=== PATIENT | female | born 1935 | race Caucasian/White ===

== ENCOUNTER → 2017-01-25 | Outpatient (CLI) | payer MEDICARE ==
--- NOTE | 2017-01-25 16:49 | RAD ---
Indication: Diabetes with left leg wound. Grayscale, color-flow and duplex Doppler evaluation of the left lower extremity arterial system was performed. Mild calcified atherosclerotic plaque is identified throughout the left lower extremity arterial system. There are primarily biphasic waveforms throughout. Velocities are unremarkable. No significant velocity elevation or stenosis is seen. No occlusion is identified. Impression: Atherosclerotic changes. No high-grade stenosis or occlusion is identified.
== END | disposition home or self-care (01) ==
LOC: US 15:43
PROVIDERS: ATTEND Family Medicine
DX: I73.9 Peripheral vascular disease, unspecified (principal); L03.129 Acute lymphangitis of unspecified part of limb
CPT/HCPCS: 93923

== ENCOUNTER 2021-03-31 22:48 | Emergency (ER) | payer MEDICARE ==
[~2021-03-31] VITALS: Ht 161.3 cm; Wt 65.5 kg
--- NOTE | 2021-03-31 23:02 | PHYS DOC ---
Past History Past Medical History: Arthritis General Adult HPI: HPI: ".. This shoulder.. has just started hurting... ..it really been hurting tonight... it hurts to move it.. and can't find a comfortable position... " Patient is a 85 year old female who presents with right shoulder pain. Patient is having pain with range of motion. There is some trapezius spasms associated with pain. Patient rates pain as 8 out of 10 and constant. Patient denies any trauma. No recent travel. No specific ill contacts. No history immunosuppression. Patient is right hand dominant. Pulses in right wrist are equal to left wrist. Any movement of the shoulder joint causes increased pain. Patient denies any fever or chills. No history of immune suppression.does have a history of asthma and bronchitis. Patient never smoked. Patient has completed Covid Moderna Vaccination x 2 times in November. Patient normally follows with Dr. Brennan. Review of Systems: Review of Systems: Constitutional: Denies fever or chills Eyes: Denies change in visual acuity HENT: Denies nasal congestion or sore throat Respiratory: History of wheezing Cardiovascular: Denies chest pain or edema GI: Denies abdominal pain, nausea, vomiting, bloody stools or diarrhea : Denies dysuria Musculoskeletal: Complains of right shoulder pain and neck pain Integument: Denies rash Neurologic: Denies headache, focal weakness or sensory changes Endocrine: Denies polyuria or polydipsia Lymphatic: Denies swollen glands Psychiatric: Denies depression or anxiety Family History: Family History: Noncontributory to presentation Current Medications: Current Meds: See nursing for home meds Allergies: Allergies: Allergic to penicillin ibuprofen Physical Exam: PE: Constitutional: Moderate acute distress, non-toxic appearance. [] HENT: Normocephalic, atraumatic, bilateral external ears normal, oropharynx moist, no oral exudates, nose normal. [] Eyes: PERRLA, EOMI, conjunctiva normal, no discharge. [] Neck: Normal range of motion, right trapezius tenderness, supple, no stridor. [] Kyphosis and scoliosis Cardiovascular: Tachycardia heart rate regular rhythm, no murmur [] PMI to the l eft Lungs & Thorax: Bilateral breath sounds equal apex with basilar crackles on auscultation [] Abdomen: Bowel sounds normal, soft, no tenderness, no masses, no pulsatile masses. Old scar Skin: Warm, dry, no erythema, no rash. Poor turgor Back: No tenderness, no CVA tenderness. [] Extremities: No tenderness, no cyanosis, no clubbing, ROM intact, no edema. Except findings in right shoulder as per HPI Neurologic: Alert and oriented X 3, moves extremities on request, does have distal sensory,, no focal deficits noted. [] Psychologic: Affect anxious, judgement normal, mood normal. [] EKG: EKG: My interpretation of EKG shows a sinus rhythm at 97 bpm. Does have occasional PACs and PVCs. Left axis deviation and contour abnormality in anterior septal region. No findings of acute STEMI with contralateral changes. But this is a abnormal EKG. [] Radiology/Procedures: Radiology/Procedures: [][address] [address] IMAGING REPORT Signed PATIENT: EDISON ZHU AACCOUNT: [id number] : 1935 LOCATION: ER AGE: 85 SEX: F EXAM STATUS: PRE ER ORD. PHYSICIAN: HERNAN MORRISON MD REASON: pain PROCEDURE: CT HEAD AND CERVICAL SPINE WO INDICATION: Head and neck pain COMPARISON: None. TECHNIQUE: Axial CT images obtained through the head and cervical spine . One or more of the following individualized dose reduction techniques were utilized for this examination: 1. Automated exposure control; 2. Adjustment of the mA and/or kV according to patient size; 3. Use of iterative reconstruction technique. FINDINGS: Head: Calcific atherosclerosis. Distal left internal carotid artery is mildly prominent in size measuring up to about 6-7 mm. No midline shift. Multifocal regions of low density throughout the white matter. Prominence of ventricles and sulci which can be seen with age-related volume loss. No acute intracranial hemorrhage. There is some fluid in the maxillary sinuses. Cervical spine: Degenerative changes throughout the cervical spine with disc protrusions and osteophyte formation as well as uncovertebral and facet hypertrophy with multilevel central canal and neural foraminal stenosis. Osseous demineralization. Pannus formation at the dens. Calcific atherosclerosis. Thyroid nodules. IMPRESSION: * No acute intracranial hemorrhage. * Low-density throughout the white matter. Nonspecific but can be from small vessel ischemic disease. * Degenerative changes of the cervical spine with multilevel central canal and neural foraminal stenosis. No definite fracture seen. Electronically signed by: Radha Rahman MD (04/01/2021 12:42 AM) DESKTOP- [id number] DICTATED AND SIGNED BY: RADHA RAHMAN MD DATE: 04/01/21 0034 CC: LITA BRENNAN MD; HERNAN MORRISON MD ~MTH0 0 Heart Score: C/O Chest Pain: N/A Risk Factors: Risk Factors: DM, Current or recent (<one month) smoker, HTN, HLP, family history of CAD, obesity. Risk Scores: Score 0 - 3: 2.5% MACE over next 6 weeks - Discharge Home Score 4 - 6: 20.3% MACE over next 6 weeks - Admit for Clinical Observation Score 7 - 10: 72.7% MACE over next 6 weeks - Early Invasive Strategies Course & Med Decision Making: Course & Med Decision Making Pertinent Labs and Imaging studies reviewed. (See chart for details) Patient follow-up with Dr. Brennan. Patient to take Zithromax 250 a day. Trial course of lidocaine patches over right shoulder. Take Tylenol for pain. For marked pain may take Percocet up to 4 times a day. Return if any concerns. Impression: 1. Rt Shoulder Pain 2. DJD and Cervical Neuropathy 3. Leukocytosis 15.9 4. Thrombcytopenia 123 5. Elevated Bun/Creat 33/1.3 6. DM - Glucosed 347 7. Rt. Basilar Opacity- and Linear opacities- Pneumonia? [] Dragon Disclaimer: Joel Disclaimer: This electronic medical record was generated, in whole or in part, using a voice recognition dictation system. Departure Departure: Referrals: LITA BRENNAN MD (PCP) Scripts Azithromycin (ZITHROMAX) 250 Mg Tablet 250 MG PO DAILY for ANTI-BIOTIC for 5 Days, #5 TAB 0 Refills Prov: HERNAN MORRISON MD 04/01/21 Oxycodone Hcl/Acetaminophen (PERCOCET 5-325 MG TABLET ) 1 Each Tablet 1 TAB PO PRN QID PRN for PAIN MDD 4 Tablet(s) for 30 Days, #30 TAB 0 Refills Prov: HERNAN MORRISON MD 04/01/21 Lidocaine (Lidocaine PATCH ) 1 Each Adh..patch 1 EACH TP DAILY for FOR LOCAL PAIN, #10 PATCH REMOVE AFTER 12 HOURS Prov: HERNAN MORRISON MD 04/01/21 HERNAN MORRISON MD Mar 31, 2021 23:02
--- NOTE | 2021-03-31 23:40 | EKG ---
[address] [address] Test Date: 2021-03-31 Test Time: 23:03:23 Pat Name: EDISON ZHU Department: Room: Gender: F Anthropometrist: BHAVYA : 1935 Requested By: HERNAN MORRISON Order Number: [id number] Reading MD: Measurements Intervals [place] [facility] Rate: 97 P: -63 VA: 132 QRS: -46 QRSD: 78 T: 13 QT: 348 QTc: 446 Interpretive Statements SINUS RHYTHM ATRIAL PREMATURE COMPLEX(ES) ABNORMAL LEFT AXIS DEVIATION QRS(T) CONTOUR ABNORMALITY CONSISTENT WITH ANTEROSEPTAL INFARCT PROBABLY OLD CONSISTENT WITH INFERIOR INFARCT PROBABLY OLD ABNORMAL ECG RI6.02 No previous ECG available for comparison
[2021-04-01] MEDS ORDERED: IV RINGERS SOLUTION,LACTATED 1,000 ML IV SCH
[2021-04-01] MEDS ORDERED: oxyCODONE/APAP 5/325 1 TAB TABLET PO ONE
[2021-04-01 00:27] LABS: CALCIUM 8.5 mg/dL (8.5-10.1); CREATININE 1.7 mg/dL (0.6-1.0); GFR 28.6; POTASSIUM 3.9 mmol/L (3.5-5.1)
[2021-04-01 00:35] LABS: BASO # 0.1 x10^3/uL (0.0-0.2); BASO % 1 % (0-3); EOS % 0 % (0-3); HEMATOCRIT 39.6 % (36.0-47.0); HEMOGLOBIN 13.1 g/dL (12.0-15.5); LYMPH # 1.3 x10^3/uL (1.0-4.8); LYMPH % 8 % (24-48); MEAN CORPUSCULAR HEMOGLOBIN 29 pg (25-35); MEAN CORPUSCULAR HGB CONC 33 g/dL (31-37); MEAN CORPUSCULAR VOLUME 87 fL (79-100); MONO # 1.9 x10^3/uL (0.0-1.1); MONO % 12 % (0-9); NEUT # 12.7 x10^3uL (1.8-7.7); NEUT % 79 % (31-73); PLATELET COUNT 123 x10^3/uL (140-400); RED BLOOD COUNT 4.54 x10^6/uL (3.50-5.40); RED CELL DISTRIBUTION WIDTH 14.1 % (11.5-14.5); WHITE BLOOD COUNT 15.9 x10^3/uL (4.0-11.0)
[2021-04-01 00:38] LABS: % LYMPHS 14 % (24-48); % MONOS 8 % (0-10); % SEGS 78 % (35-66)
[2021-04-01 00:39] LABS: PLT ESTIMATE DECREASED (ADEQUATE)
[2021-04-01 00:40] LABS: DIRECT BILIRUBIN 0.2 mg/dL (0.0-0.2); MAGNESIUM 2.2 mg/dL (1.8-2.4); TOTAL BILIRUBIN 0.7 mg/dL (0.2-1.0); TOTAL PROTEIN 6.4 g/dL (6.4-8.2)
--- NOTE | 2021-04-01 00:45 | RAD ---
INDICATION: Head and neck pain COMPARISON: None. TECHNIQUE: Axial CT images obtained through the head and cervical spine . One or more of the following individualized dose reduction techniques were utilized for this examinat ion: 1. Automated exposure control; 2. Adjustment of the mA and/or kV according to patient size; 3 . Use of iterative reconstruction technique. FINDINGS: Head: Calcific atherosclerosis. Distal left internal carotid artery is mildly prominent in size measuring u p to about 6-7 mm. No midline shift. Multifocal regions of low density throughout the white matter. Prominence of ventricles and sulci which can be seen with age-related volume loss. No acute intracranial hemorrhage. There is some fluid in the maxillary sinuses. Cervical spine: Degenerative changes throughout the cervical spine with disc protrusions and osteophyte formation as well as uncovertebral and facet hypertrophy with multilevel central canal and neural foraminal stenos is. Osseous demineralization. Pannus formation at the dens. Calcific atherosclerosis. Thyroid nodules. IMPRESSION: * No acute intracranial hemorrhage. * Low-density throughout the white matter. Nonspecific but can be from small vessel ischemic disease . * Degenerative changes of the cervical spine with multilevel central canal and neural foraminal sten osis. No definite fracture seen. Electronically signed by: Porter Rahman MD (04/01/2021 12:42 AM) [id number]
[2021-04-01 02:34] LABS: BILIRUBIN,URINE NEG (NEG); CLARITY,URINE CLEAR; COLOR,URINE YELLOW; GLUCOSE,URINE 500 mg/dL (NEG); NITRITE,URINE NEG (NEG); UROBILINOGEN,URINE 0.2 mg/dL (0.2 mg/dL)
[2021-04-01 02:35] LABS: BACTERIA,URINE 0 /HPF (0-FEW); RBC,URINE 0 /HPF (0-2); SQUAMOUS EPITHELIAL CELL,UR OCC /LPF; WBC,URINE 0 /HPF (0-4)
--- NOTE | 2021-04-01 03:20 | RAD ---
INDICATION: Reason: Rt.chest wall pain / Spl. Instructions: / History: . COMPARISON: None. TECHNIQUE: Axial CT images obtained through the chest without contrast. One or more of the following individualized dose reduction techniques were utilized for this examinat ion: 1. Automated exposure control; 2. Adjustment of the mA and/or kV according to patient size; 3 . Use of iterative reconstruction technique. FINDINGS: Linear opacities at the lower lungs which could be from scarring or atelectasis. No evidence of pneumothorax. Small focal opacity at the right chest base. Severe calcific atherosclerosis. Coronary artery calcific atherosclerosis. Thyroid nodules. Severe degenerative changes of the right shoulder. Degenerative changes the spine with scoliotic curvature and multilevel central canal and neural brian inal stenosis. Osseous demineralization. No displaced rib fracture is seen. IMPRESSION: * Mild dependent atelectasis. * Severe calcific atherosclerosis. Electronically signed by: Porter Rahman MD (04/01/2021 3:18 AM) [id number]
[2021-04-01] MEDS ORDERED: LIDO700A21 TP (03:30)
[2021-04-01] MEDS ORDERED: OXYC1TAB15 PO (03:30)
[2021-04-01 03:40] VITALS: BP 138/62
[2021-04-01] MEDS ORDERED: AZIT250T PO (03:41)
[2021-04-01] MEDS ORDERED: AZITHROMYCIN 250 MG TABLET. PO ONE (03:45)
--- NOTE | 2021-04-01 04:37 | RAD ---
INDICATION: Reason: pain of chest/ Spl. Instructions: / History: COMPARISON: None. FINDINGS: Single view of chest obtained. Cardiac silhouette is prominent in size with calcific atherosclerosis. Mild linear opacities lung bases Degenerative changes right greater than left shoulder. IMPRESSION: * Linear opacities at the lung bases can be seen with atelectasis. Electronically signed by: Porter Rahman MD (04/01/2021 4:35 AM) [id number]
--- NOTE | 2021-04-01 04:52 | RAD ---
INDICATION: Reason: pain of shoulder/ Spl. Instructions: / History: COMPARISON: None. IMPRESSION: Right shoulder: 3 views obtained. Severe degenerative changes of the right shoulder. No definite acut e fracture or dislocation Electronically signed by: Porter Rahman MD (04/01/2021 4:50 AM) [id number]
== END 2021-04-01 03:45 | disposition home or self-care (01) ==
LOC: ER 22:48
DX: M25.511 Pain in right shoulder (principal); M47.812 Spondylosis without myelopathy or radiculopathy, cervical region; E11.9 Type 2 diabetes mellitus without complications; D72.829 Elevated white blood cell count, unspecified; Z88.0 Allergy status to penicillin
CPT/HCPCS: 36415; 70450; 71045; 71250; 72125; 73030; 80048; 80076; 81001; 82550; 83735; 83880; 84484; 85007; 85025; 93005; 96360; 99285; J7120

== ENCOUNTER 2021-04-06 13:19 | Inpatient (IN) | payer MEDICARE ==
[~2021-04-06] VITALS: Ht 157.5 cm; Wt 65.7 kg
[~2021-04-06 13:19] MED LIST: AZIT250T PO; LIDO700A21 TP; OXYC1TAB15 PO
[2021-04-06 14:17] VITALS: BP 134/68
[2021-04-06] MEDS ORDERED: ALBU1.25 NEB (16:21)
[2021-04-06] MEDS ORDERED: LATA2.5D2 OU (16:21)
[2021-04-06] MEDS ORDERED: LOSA25TA11 PO (16:21)
[2021-04-06] MEDS ORDERED: TRIA1TAB3 PO (16:21)
[2021-04-06] MEDS ORDERED: ALBU2.5V8 IH (16:21)
[2021-04-06] MEDS ORDERED: DILT180C64 PO (16:21)
[2021-04-06] MEDS ORDERED: INSU100I32 SQ (16:21)
[2021-04-06] MEDS ORDERED: PRAV40TA2 PO (16:21)
[2021-04-06] MEDS ORDERED: DORZ10DR27 OD (16:21)
[2021-04-06] MEDS ORDERED: VANCOMYCIN PER PHARMACY MC PRN (17:45)
[2021-04-06] MEDS ORDERED: DEXTROSE 50% 25 GM / 50ML DISP.SYRIN. IV PRN (17:45)
[2021-04-06] MEDS ORDERED: ALBUTEROL SULFATE 2.5 MG/3 ML NEBU. IH PRN (17:45)
[2021-04-06] MEDS ORDERED: LATANOPROST 0.005% OPHTH SOLUTION 2.5ML BOTTLE. OU SCH (18:00)
[2021-04-06] MEDS ORDERED: NON FORMULARY ITEM (Albuterol Sulfate (Albuterol Sulfate Neb Soln) 1 VIAL) NEB SCH (18:00)
[2021-04-06] MEDS ORDERED: ENOXAPARIN ** NOTE DOSE ** SYRINGE SQ SCH (18:00)
[2021-04-06 18:50] LABS: HEMATOCRIT 35.3 % (36.0-47.0); HEMOGLOBIN 11.9 g/dL (12.0-15.5); RED BLOOD COUNT 4.05 x10^6/uL (3.50-5.40); RED CELL DISTRIBUTION WIDTH 14.2 % (11.5-14.5)
[2021-04-06] MEDS ORDERED: VANCOMYCIN 1.75 GM in IV NORMAL SALINE 500ML 500 ML IV ONE (19:00)
[2021-04-06 19:09] LABS: ALBUMIN 2.4 g/dL (3.4-5.0); ALBUMIN/GLOBULIN RATIO 0.6 (1.0-1.7); C REACTIVE PROTEIN 109.3 mg/L (0-3.3); CALCIUM 8.4 mg/dL (8.5-10.1); CREATININE 1.7 mg/dL (0.6-1.0); GFR 28.6; POTASSIUM 3.5 mmol/L (3.5-5.1); TOTAL BILIRUBIN 0.4 mg/dL (0.2-1.0); TOTAL PROTEIN 6.5 g/dL (6.4-8.2); URIC ACID 5.5 mg/dL (2.6-6.0)
--- NOTE | 2021-04-06 19:22 | HP ---
ADMIT DATE: 04/06/2021 HISTORY OF PRESENT ILLNESS: The patient is an 85-year-old female patient admitted directly from Dr. Brennan's office with a complaint of swelling and pain of the right foot that started yesterday. The patient stated she has mild pain, but denied any chills, rigors or fever. Denied any trauma or fall. She was admitted. She has also had history of DVT before and also history of gout, was admitted for further evaluation and treatment. PAST MEDICAL HISTORY: Significant for type 2 diabetes mellitus, hypertension, hyperlipidemia, bronchial asthma/COPD, chronic kidney disease, history of gout, glaucoma and sensorineural deafness. She has also history of DVT, treated before with 4 years of continuous Eliquis. PAST SURGICAL HISTORY: Significant for total abdominal hysterectomy, bilateral cataract extraction and colonoscopy. ALLERGIES: SHE IS ALLERGIC TO PENICILLIN AND IBUPROFEN. MEDICATIONS: She is currently on the following medications: Albuterol sulfate 2 puffs every 4-6 hours, albuterol sulfate by nebulizer every 6 hours, pravastatin 40 mg at bedtime, diltiazem 180 mg daily, losartan potassium 25 mg once a day, triamterene/hydrochlorothiazide 37.5/25 one tablet once a day, dorzolamide/timolol one drop to the right eye once a day, latanoprost one drop to both eyes. She is also on Lantus insulin 35 units at day time. FAMILY HISTORY: She has two brothers who are . Both parents are . SOCIAL HISTORY: She is . She has two sons from previous marriage and one daughter. She never smoked, does not drink alcohol or do recreational drugs. 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 REVIEW OF SYSTEMS: As per history of present illness. PHYSICAL EXAMINATION: GENERAL: When I examined her, she looked well and was clearly in no apparent respiratory distress. No pallor, jaundice, cyanosis. No lymphadenopathy or thyromegaly. No jugular venous distention. She does have right lower extremity more swollen all the way to the right knee. There is marked swelling and redness on the dorsum of the right big toe and the dorsum of the right foot. VITAL SIGNS: Her heart rate was 91, blood pressure is 134/68, temperature was 98.7, respiratory rate was 16 and oxygen saturation was 93% on room air. HEAD, EYES, EARS, NOSE AND THROAT: Normocephalic, atraumatic. NECK: Supple. HEART: Showed normal first and second heart sounds. No gallop or murmur. CHEST: Clear to auscultation. No crepitation or rhonchi. ABDOMEN: Distended, soft, nontender. NEUROLOGIC: She was hard of hearing, has also some cognitive impairment and memory impairment; however, all her cranial nerves are intact. She moves extremities without difficulty. She apparently ambulates without assistance or assistive devices. ASSESSMENT AND PLAN: I did order lab work including a CBC, a CMP, sed rate, CRP, and uric acid, ordered a x-ray of the right foot and venous Doppler ultrasound of the right lower extremity. I did start her empirically on Lovenox 1 mg/kg once a day as her kidney has marked kidney impairment and reconciled all her medications, started vancomycin as per pharmacy recommendation. If her uric acid and inflammatory markers are elevated, probably she might need to be on steroids as she has impaired kidney function and anti-inflammatory medication and colchicine are contraindicated. Otherwise, she will be treated and obviously, I did order venous Doppler ultrasound tomorrow together with x-ray of the right foot and if she is positive for deep venous thrombosis , she will probably be on Eliquis. JORGE ALBERTO DR: Dia TID: [id number]
[2021-04-06] MEDS: LOSARTAN 25 MG TABLET. PO SCH (19:30)
[2021-04-06 19:45] VITALS: BP 117/66
[2021-04-06] MEDS: ATORVASTATIN CALCIUM 10 MG TABLET. PO SCH (21:06)
[2021-04-06] MEDS: LATANOPROST 0.005% OPHTH SOLUTION 2.5ML BOTTLE. OU SCH (21:06)
[2021-04-06] MEDS: DORZOLAMIDE 2% OPHTH SOLUTION 10ML BOTTLE. OD SCH (21:06)
--- NOTE | 2021-04-06 22:41 | RAD ---
Right lower extremity venous ultrasound, : History: Right leg tightness, redness, swelling Duplex evaluation including grayscale, color flow and spectral Doppler analysis was performed. The f emoral veins show no filling defects to suggest DVT. There is incomplete compression of the right popliteal vein. There are intraluminal echoes in the pop liteal vein consistent with venous thrombosis. There is decreased flow in the popliteal vein with col or imaging. Clot propagates into a peroneal vein. There is edema in the superficial soft tissues of t he right calf. IMPRESSION: 1. Deep venous thrombosis involving the popliteal vein and a peroneal vein in the calf. 2. Lower leg edema in the superficial soft tissues. Electronically signed by: Rudy Adames MD (04/06/2021 10:39 PM) [facility]
[2021-04-06 23:40] VITALS: BP 126/69
[2021-04-07] MEDS ORDERED: ANTI-COAG MONITOR BY PHARMACY. MC PRN (05:45)
[2021-04-07 06:20] VITALS: BP 132/73
[2021-04-07] MEDS ORDERED: DORZOLAMIDE/TIMOLOL 2%/0.5% OPHTH SOLUTION 10ML BOTTLE. OD SCH (07:00)
[2021-04-07] MEDS: INSULIN LISPRO 300 UNITS/3 ML VIAL. SQ SCH ×3 (08:00→16:51)
[2021-04-07] MEDS ORDERED: TRIAMTERENE/HCTZ 37.5/25MG TABLET. PO SCH (09:00)
[2021-04-07] MEDS: APIXABAN 5 MG TABLET. PO SCH ×2 (09:03→20:22)
[2021-04-07] MEDS: LOSARTAN 25 MG TABLET. PO SCH (09:03)
[2021-04-07] MEDS: LATANOPROST 0.005% OPHTH SOLUTION 2.5ML BOTTLE. OU SCH (09:03)
[2021-04-07] MEDS: DORZOLAMIDE 2% OPHTH SOLUTION 10ML BOTTLE. OD SCH ×2 (09:04→20:23)
[2021-04-07] MEDS: INSULIN GLARGINE SYRINGE. SQ SCH (09:09)
[2021-04-07 10:51] VITALS: BP 122/65
--- NOTE | 2021-04-07 13:45 | RAD ---
EXAM: XR FOOT_RIGHT 3 VIEWS 04/07/2021 6:15 AM CLINICAL INDICATION: Pain and swelling of right foot COMPARISON: None TECHNIQUE: 3 views of the right foot FINDINGS: The bones are diffusely demineralized, limiting the exam. There is no displaced fracture o r osseous destruction. Hallux valgus is noted. Mild degenerative joint disease of the first CMC joint , TMT joints, and naviculocuneiform joint. There is mild diffuse soft tissue swelling.. IMPRESSION: 1. No acute osseous abnormality. 2. Osteopenia. Mild scattered degenerative joint disease. 3. Mild diffuse soft tissue swelling. Electronically signed by: Mirna Devi MD (04/07/2021 1:42 PM) [id number]
[2021-04-07 14:47] VITALS: BP 121/53
[2021-04-07 19:58] VITALS: BP 101/65
[2021-04-07] MEDS: ATORVASTATIN CALCIUM 10 MG TABLET. PO SCH (20:22)
--- NOTE | 2021-04-07 22:46 | PN ---
DATE: 04/07/2021 ATTENDING PHYSICIANS: Dr. Lugo and Dr. Delgadillo. SUBJECTIVE: The patient is pleasant. She wants to go home. She remains pleasantly confused. Her and caretakers in the room asking most appropriate questions. OBJECTIVE FINDINGS: VITAL SIGNS: She is afebrile. Blood pressure this morning is 132/73, pulse is 66 and regular, oxygen saturation 94% on room air. Again, she is afebrile. HEENT: Head is without trauma. Pupils are reactive. Sclerae nonicteric. Oropharynx clear. NECK: Supple, no bruits. LUNGS: Clear. CARDIOVASCULAR: Showed regular heart tones. ABDOMEN: Soft. No guarding or rebound tenderness. EXTREMITIES: Shows swelling and erythema of the right lower extremity that extends up to her thighs. There is localized stasis dermatitis, redness and erythema, more so in the dorsum and the ankles of the right foot. ASSESSMENT: 1. An 85-year-old female with cellulitis of the right lower extremity. 2. Deep vein thrombosis involving the popliteal and peroneal veins of the right leg. 3. Dementia. 4. Chronic kidney disease, stage 4. 5. Type 2 diabetes. 6. Probable diabetic nephropathy. PLAN: 1. Continue vancomycin as ordered for most likely Staphylococcus infection. 2. Eliquis modified for creatinine clearance. 3. Continue home meds. 4. Diet as tolerated. 5. We will decide on the day to day basis when she is ready for discharge with oral antibiotics. I explained to the that the Eliquis should be taken for the next 6 months. SHERI/ERMELINDA DR: Will TID: [id number] CC: LITA PIMENTEL MD
[2021-04-08 06:08] VITALS: BP 128/74
[2021-04-08] MEDS: LOSARTAN 25 MG TABLET. PO SCH (08:05)
[2021-04-08] MEDS: APIXABAN 5 MG TABLET. PO SCH (08:06)
[2021-04-08] MEDS: DORZOLAMIDE 2% OPHTH SOLUTION 10ML BOTTLE. OD SCH (08:06)
[2021-04-08] MEDS: INSULIN GLARGINE SYRINGE. SQ SCH (08:08)
[2021-04-08] MEDS: INSULIN LISPRO 300 UNITS/3 ML VIAL. SQ SCH (08:34)
[2021-04-08 10:52] VITALS: BP 135/79
--- NOTE | 2021-04-08 13:10 | DS ---
DATE OF DISCHARGE: 04/08/2021 ATTENDING PHYSICIAN: Dr. Lugo. FINAL DISCHARGE DIAGNOSES: 1. Cellulitis of the right foot. 2. New deep vein thrombosis involving the right popliteal and peroneal veins. 3. Profound dementia. 4. Chronic kidney disease, stage IV. 5. Type 2 diabetes. 6. Diabetic nephropathy. HISTORY AND PHYSICAL: This is an 85-year-old female from Dr. Pimentel's office with cellulitis and swelling of the right foot. She was also found to have a DVT involving the peroneal and popliteal veins. PHYSICAL EXAMINATION: Please see the dictated note. PERTINENT LABORATORY AND X-RAY STUDIES: Admission hemoglobin was 11.9 g/dL, white count 8000. Blood sugars in the mid 100 range. COURSE IN THE HOSPITAL: She was treated with 3 days of intravenous vancomycin. We did start her on Eliquis 5 mg b.i.d. modified dose based on renal clearance. This was recommended by the pharmacist. She did well. Swelling came down. On the third hospital day, she wanted to go home. Most likelihood, this is an MRSA infection. I recommended 7 more days of Bactrim-DS 1 b.i.d. She has no sulfa allergy. In addition, doxycycline 100 mg p.o. b.i.d., scripts for Eliquis 5 mg b.i.d. I recommend a minimum of 6 months at this time based on the blood clot. Other home meds are unchanged. They include albuterol as needed, diltiazem, dorzolamide eye drops, insulin as scheduled, Xalatan eye drops, losartan, pravastatin prescription as prescribed. She will follow up with Dr. Pimentel in 2 weeks' time. She was discharged then with explicit instructions given to her in stable condition with explicit written and followup care. TOTAL DISCHARGE TIME SPENT: [address]: Will TID: [id number] CC: LITA PIMENTEL MD
[2021-04-08] MEDS ORDERED: VANCOMYCIN 1 GM in IV NORMAL SALINE 250ML 250 ML IV SCH (19:00)
[2021-04-14] MEDS ORDERED: APIXABAN 5 MG TABLET. PO SCH (09:00)
== END 2021-04-08 11:22 | disposition home or self-care (01) | DRG 602 ==
LOC: 1 SOUTH 13:49
PROVIDERS: ADMIT Internal Medicine; ATTEND Internal Medicine
DX: L03.115 Cellulitis of right lower limb (principal); E43 Unspecified severe protein-calorie malnutrition; I82.431 Acute embolism and thrombosis of right popliteal vein; N18.4 Chronic kidney disease, stage 4 (severe); I82.459 Acute embolism and thrombosis of unspecified peroneal vein; F03.90 Unspecified dementia, unspecified severity, without behavioral disturbance, psychotic disturbance, mood disturbance, and anxiety; B95.62 Methicillin resistant Staphylococcus aureus infection as the cause of diseases classified elsewhere; E11.22 Type 2 diabetes mellitus with diabetic chronic kidney disease; E78.5 Hyperlipidemia, unspecified; E11.51 Type 2 diabetes mellitus with diabetic peripheral angiopathy without gangrene; H90.5 Unspecified sensorineural hearing loss; I12.9 Hypertensive chronic kidney disease with stage 1 through stage 4 chronic kidney disease, or unspecified chronic kidney disease; J44.9 Chronic obstructive pulmonary disease, unspecified; Z79.01 Long term (current) use of anticoagulants; Z86.718 Personal history of other venous thrombosis and embolism; Z90.710 Acquired absence of both cervix and uterus; Z98.41 Cataract extraction status, right eye; Z98.42 Cataract extraction status, left eye; M10.9 Gout, unspecified; Z88.0 Allergy status to penicillin; Z88.8 Allergy status to other drugs, medicaments and biological substances; Z68.26 Body mass index [BMI] 26.0-26.9, adult
CPT/HCPCS: 36415; 73630; 80053; 82947; 84550; 85027; 85651; 86140; 93971; J1650; J1815; J3370; J7040; J7613

== ENCOUNTER → 2021-04-14 | Outpatient (CLI) | payer MEDICARE ==
[2021-04-08 10:52] VITALS: BP 135/79
[~2021-04-14] MED LIST changes: +ALBU1.25 NEB; +ALBU2.5V8 IH; +DILT180C64 PO; +DORZ10DR27 OD; +INSU100I32 SQ; +LATA2.5D2 OU; +LOSA25TA11 PO; +PRAV40TA2 PO; +TRIA1TAB3 PO
--- NOTE | 2021-04-14 15:09 | RAD ---
EXAM: 1. LEFT HAND 3 VIEWS. 2. LEFT WRIST 3 VIEWS. HISTORY: Left hand/wrist pain. COMPARISON: None. FINDINGS: Osteopenia is moderate to severe. No fractures are identified in the wrist. Alignment is ma intained. Joint spaces are maintained. A watch projects over the forearm. Atherosclerotic calcificati ons are noted. No fractures are identified throughout the hand. Interphalangeal osteoarthritis is moderate to severe diffusely. It is severe at the second and third distal interphalangeal joints, and the fourth proxim al interphalangeal joints, possibly with a superimposed erosive component. There is some medial devia tion of the third distal phalanx. First carpometacarpal osteoarthritis is moderate to severe. Metacar pophalangeal osteoarthritis is mild diffusely. IMPRESSION: 1. 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 2. First carpometacarpal osteoarthritis is moderate to severe. Electronically signed by: Cynthia Angulo MD (04/14/2021 3:07 PM) [facility]
== END ==
LOC: RAD 09:34
PROVIDERS: ATTEND Family Medicine
DX: M18.12 Unilateral primary osteoarthritis of first carpometacarpal joint, left hand (principal); M85.88 Other specified disorders of bone density and structure, other site; M25.532 Pain in left wrist
CPT/HCPCS: 73110; 73130

== ENCOUNTER 2021-04-25 08:33 | Inpatient (IN) | payer MEDICARE ==
[2021-04-25] VITALS (14 sets, daily range): BP systolic 96–124; BP diastolic 46–65
[~2021-04-25] VITALS: Ht 160 cm; Wt 63.4 kg
--- NOTE | 2021-04-25 08:46 | EKG ---
[address] [address] Test Date: 2021-04-25 Test Time: 08:35:10 Pat Name: EDISON ZHU Department: Room: Gender: F Extension Course Coordinator: RAFIA : 1935 Requested By: DARIA GREENE Order Number: [id number] Reading MD: Measurements Intervals [place] Rate: 92 P: [place]: QRS: -26 QRSD: 90 T: 30 QT: 378 QTc: 473 Interpretive Statements IRREGULAR RHYTHM, NO P-WAVE FOUND VENTRICULAR PREMATURE COMPLEX(ES) LEFTWARD AXIS ABNORMAL ECG RI6.02 No previous ECG available for comparison
--- NOTE | 2021-04-25 08:47 | PHYS DOC ---
Past History Past Medical History: Arthritis Past Surgical History: Tonsillectomy Alcohol Use: None General Adult EDM: Chief Complaint: CHEST PAIN HPI: HPI: 85 year old female with past medical history of dementia presents for evaluation of chest pain. Patient is not accompanied by family. Patient does not know her past medical history. Patient initially did not endorse chest pain. Prompted by nursing-- patient recalled having chest pain but unsure of the onset. She currently denied chest pain. States pain was a pressure and associated with shortness of breath. Heart rate on the cardiac tech was 110-115 bpm. Review of previous medical records show a past medical history of: DVT, CKD stage IV, diabetes type 2, and diabetic neuropathy Review of Systems: Review of Systems: Limited due to dementia Allergies: Allergies: Allergies Coded Allergies Type Severity Reaction Last Updated Verified ibuprofen Allergy Severe Anaphylaxis 03/31/21 Yes Penicillins Allergy Unknown 03/31/21 Yes Physical Exam: PE: General: alert, no acute distress. Skin: warm, dry and intact, no erythema, no rash. HENT: bilateral external ears normal, oropharynx moist, nose normal. Head:: Normocephalic, atraumatic. Neck: Trachea midline. Eyes: EOMI, Normal conjunctiva, No drainage CARDIOVASCULAR: Irregular RESPIRATORY: No respiratory distress Back: Full range of motion. MUSCULOSKELETAL: Full range of motion of bilateral upper and lower extremities. GASTROINTESTINAL: Abdomen soft without rebound or guarding. NEUROLOGICAL: Alert and noted to person, . No neurological deficits observed Psychiatric: Cooperative. Normal judgment Current Patient Data: Vital Signs: Vital Signs Date Time Temp Pulse Resp B/P (MAP) Pulse Ox O2 Delivery O2 Flow Rate FiO2 04/25/21 08:38 97.8 118 22 143/76 96 Room Air EKG: EKG: [] Radiology/Procedures: Radiology/Procedures: [] Impressions: Performed at 0 835 Rate [address] elevation No ST depression No acute LA [] Heart Score: C/O Chest Pain: Yes HEART Score for Chest Pain: HEART Score for Chest Pain Response (Comments) Value History Slighlty/Non-Suspicious 0 ECG Nonspecific Repolarizatio 1 Age > 65 2 Risk Factors 1 or 2 Risk Factors 1 Troponin >1-<3x Normal Limit 1 Total 5 Risk Factors: Risk Factors: DM, Current or recent (<one month) smoker, HTN, HLP, family history of CAD, obesity. Risk Scores: Score 0 - 3: 2.5% MACE over next 6 weeks - Discharge Home Score 4 - 6: 20.3% MACE over next 6 weeks - Admit for Clinical Observation Score 7 - 10: 72.7% MACE over next 6 weeks - Early Invasive Strategies Course & Med Decision Making: Course & Med Decision Making Pertinent Labs and Imaging studies reviewed. (See chart for details) [] Patient was evaluated for chief complaint of chest pain. . Patient's heart rate on monitor 110's. Work-up included laboratory analysis radiologic imaging and EKG. EKG performed shows a heart rate of 92 A. fib rate controlled, chest x-ray no acute abnormalities. Patient's troponin 0 0.04, BNP pending. Patient started on Cardizem--10 mg IV bolus followed by titratable drip. Patient's heart rate improved post bolus to 92 bpm. Patient admitted to Dr. Delgadillo. Joel Disclaimer: Joel Disclaimer: This electronic medical record was generated, in whole or in part, using a voice recognition dictation system. Departure Departure: Impression: Primary Impression: Atrial fibrillation Additional Impression: Dementia Disposition: ADMITTED INPATIENT Admitting Physician: Mikhail Delgadillo Condition: STABLE Referrals: LITA PIMENTEL MD (PCP) DARIA GREENE DO Apr 25, 2021 08:47
--- NOTE | 2021-04-25 08:50 | RAD ---
Single view chest dated 04/25/2021 8:47 AM: COMPARISON: 04/01/2021 Clinical Indication: Palpitations. Findings: Single upright portable exam of the chest was performed. Heart and mediastinal contours are stable. T here is a prominent perihilar linear markings, unchanged. No consolidation or pleural effusion. No pn eumothorax. IMPRESSION: No acute radiographic abnormality. Stable findings compared to 04/01/2021. Electronically signed by: Raphael Mejia MD (04/25/2021 8:47 AM) [id number]
[2021-04-25] MEDS ORDERED: dilTIAZem 25 MG/5 ML VIAL IVP ONE (09:00)
[2021-04-25] MEDS ORDERED: IV NORMAL SALINE 100ML 100 ML ONE (09:04)
[2021-04-25] MEDS: dilTIAZem VIAL 125 MG in IV NORMAL SALINE 100ML 100 ML IV PRN ×2 (09:13→18:35)
[2021-04-25 09:20] LABS: BASO # 0.1 x10^3/uL (0.0-0.2); BASO % 1 % (0-3); EOS # 0.2 x10^3/uL (0.0-0.7); EOS % 3 % (0-3); HEMATOCRIT 37.2 % (36.0-47.0); HEMOGLOBIN 12.2 g/dL (12.0-15.5); LYMPH % 26 % (24-48); MEAN CORPUSCULAR HEMOGLOBIN 29 pg (25-35); MEAN CORPUSCULAR HGB CONC 33 g/dL (31-37); MEAN CORPUSCULAR VOLUME 87 fL (79-100); MONO # 0.9 x10^3/uL (0.0-1.1); MONO % 12 % (0-9); NEUT # 4.4 x10^3uL (1.8-7.7); NEUT % 58 % (31-73); PLATELET COUNT 323 x10^3/uL (140-400); RED BLOOD COUNT 4.26 x10^6/uL (3.50-5.40); RED CELL DISTRIBUTION WIDTH 14.7 % (11.5-14.5); WHITE BLOOD COUNT 7.7 x10^3/uL (4.0-11.0)
[2021-04-25 09:29] LABS: HEMOGLOBIN ISTAT 12.6 gm/dL; POTASSIUM ISTAT 3.4 mmol/L (3.5-5.0)
--- NOTE | 2021-04-25 10:40 | NUR ---
The patient, EDISON ZHU, 85 y/o, F admitted by KAI DELGADILLO MD, was given written information regarding hospital policies, unit procedures and contact persons. Valuables were checked and left with patient at bedside. Pt's vital signs were taken, refer to chart. Dr. Delgadillo at bedside, discussing admission and pt's condition. Pt is stable at this time with controlled heart rate of 99 in what appears to be Afib. Pt was admitted on a Cardizem drip running at 5 ml/hr. Dr. Delgadillo requested patient be increased to 10 ml/hr. Will CTM and assess as needed.
[2021-04-25] MEDS ORDERED: APIX5TAB3 PO (11:04)
[2021-04-25 11:44] LABS: CALCIUM 9.2 mg/dL (8.5-10.1); CREATININE 1.2 mg/dL (0.6-1.0); GFR 42.7; POTASSIUM 3.4 mmol/L (3.5-5.1)
[2021-04-25 11:49] LABS: ALBUMIN 2.9 g/dL (3.4-5.0); ALBUMIN/GLOBULIN RATIO 0.7 (1.0-1.7); TOTAL BILIRUBIN 0.3 mg/dL (0.2-1.0); TOTAL PROTEIN 7.2 g/dL (6.4-8.2)
--- NOTE | 2021-04-25 11:54 | HP ---
ADMIT DATE: 04/25/2021 ATTENDING PHYSICIAN: Dr. Delgadillo. CHIEF COMPLAINT: Shortness of breath and palpitations. HISTORY OF PRESENT ILLNESS: The patient is an 85-year-old female brought in by her family. She lives at home with her elderly . She has had new onset of shortness of breath, some chest pressure. She was found to be in atrial fibrillation with rapid ventricular rate. In the ED, workup showed a chest x-ray did not have any signs of heart failure. There is no infiltrate. No recent COVID exposure. She was given Cardizem and by the time I saw her, she was moved to our unit. She was on a Cardizem drip at 5 mg an hour. Heart rate is now between 100-110, irregularly irregular. She is admitted then for new onset atrial fibrillation with rapid ventricular rate. Unfortunately, the patient is profoundly demented. She cannot give much history. She has a previous history of paroxysmal atrial fibrillation, profound dementia and a remote history of deep vein thrombosis, although she is off of anticoagulation. ALLERGIES: SHE HAS ALLERGIES TO PENICILLIN, IBUPROFEN. EXACT REACTION IS UNCLEAR. CURRENT SCHEDULED MEDICATIONS: Includes albuterol, diltiazem 180 mg p.o. daily, dorzolamide eye drops, insulin Lantus and regular, Xalatan eye drops, losartan, pravastatin, and triamterene/hydrochlorothiazide. SOCIAL HISTORY: She is a nonsmoker, nondrinker. FAMILY HISTORY: Unobtainable due to the patient's confusion. REVIEW OF SYSTEMS: Significant for the symptoms that brought her here. She denies any recent fevers, chills, cough, congestion. All other systems were turned to be negative. PHYSICAL EXAMINATION: GENERAL: When I saw her, this is a pleasant, but confused elderly female. INITIAL VITAL SIGNS: Showed blood pressure 112/73, pulse is irregularly irregular between 100-110 per minute. Her oxygen saturation 96% on room air and she is afebrile. HEENT: Head is without trauma. Pupils are reactive. Sclerae nonicteric. Oropharynx is clear. NECK: Supple. No stridor. LUNGS: Otherwise clear. CARDIOVASCULAR: Showed regular heart tones, irregularly irregular rhythm. No gallops. Peripheral pulses are palpable and full. ABDOMEN: Soft, scaphoid, nontender, no organomegaly. Bowel sounds are hypoactive. EXTREMITIES: Showed no edema. NEUROLOGIC: Focally intact. Speech is fluent. She had no focal deficits. She is pleasantly confused. SKIN: Otherwise, warm and dry. CURRENT LABORATORY STUDIES: Admission hemoglobin was 12.2 g/dL with a white count of 7700. Chemistry panel: Sodium 136 mEq, potassium 3.4. The first cardiac enzymes were negative for coronary ischemia. Nonfasting blood sugar 193. ASSESSMENT: 1. An 85-year-old female with new onset atrial fibrillation with rapid ventricular rate. 2. Essential hypertension as underlying cause for her atrial fibrillation. 3. Insulin dependent diabetes. 4. Profound dementia. PLAN: 1. Admit to the intensive care. 2. Continue Cardizem drip as ordered. 3. Serial cardiac enzymes. 4. I shall try to contact her family to ascertain her code status. 5. I will call her PCP's office to see if she has had a recent echocardiogram. KENDRICK DR: Will TID: [id number] CC: LITA PIMENTEL MD
[2021-04-25] MEDS ORDERED: ALBUTEROL SULFATE 8GM INHALER. INH PRN (14:00)
[2021-04-25] MEDS ORDERED: DEXTROSE 50% 25 GM / 50ML DISP.SYRIN. IV PRN (17:00)
[2021-04-25] MEDS ORDERED: IPRATRPIUM/ALBUTEROL 0.5/2.5MG 3 ML NEBU. NEB ONE (17:30)
[2021-04-25] MEDS: INSULIN LISPRO 300 UNITS/3 ML VIAL. SQ SCH (17:44)
[2021-04-25] MEDS: APIXABAN 5 MG TABLET. PO SCH (20:16)
[2021-04-26] VITALS (17 sets, daily range): BP systolic 114–138; BP diastolic 55–97
[2021-04-26] MEDS: dilTIAZem VIAL 125 MG in IV NORMAL SALINE 100ML 100 ML IV PRN (03:49)
--- NOTE | 2021-04-26 06:00 | NUR ---
Pt awake in bed at change of shift. Pt is A&Ox2-3, pleasantly confused/forgetful and frequently repeats herself. Pt ate HS snack independently and took medications whole without difficulty. Pt up to BSC x1 assist 5 times during night, very unsteady on feet and c/o right hip/leg pain. Pt was continent all of shift. Pt sleep off and on during night. Bed alarm on.
[2021-04-26] MEDS: APIXABAN 5 MG TABLET. PO SCH ×2 (08:32→20:40)
[2021-04-26] MEDS: INSULIN LISPRO 300 UNITS/3 ML VIAL. SQ SCH ×3 (08:32→17:14)
--- NOTE | 2021-04-26 08:50 | PDOC2 ---
EVONNE WILHELM [facility] 04/26/21 0850: CARDIAC CONSULT DATE OF CONSULT DOS: DATE: 04/26/21 TIME: 08:40 REASON FOR CONSULT Reason for Consult AFIB REFERRING PHYSICIAN Referring Physician Dr. Delgadillo SOURCE Source: Chart review, Patient HPI History of Present Illness This is an 85 yo female who presented secondary to chest pain. HPI obtained from chart review as patient unable to tell me what brought her to the hospital. Patient reported experienced some shortness of breath and chest pressure, which prompted her arrival. Initially felt to be in AFIB/flutter upon arrival. Was initiated on Cardizem gtt. Review of EKG and tele appears to be SR/ST with frequents PAC's. She presently denies any chest pain, palpitations, dizziness, diaphoresis, or nausea/vomiting. Does reports some shortness of breath. PAST MEDICAL HISTORY Cardiovascular: hyperipidemia Pulmonary: Asthma CENTRAL NERVOUS SYSTEM: Dementia Heme/Onc: Other (DVT) Musculoskeletal: Osteoarthritis Renal/: Chronic renal insuff Endocrine: Diabetes PAST SURGICAL HISTORY Past Surgical History: Hysterectomy FAMILY HISTORY Family History: Family History Unknown SOCIAL HISTORY Smoke: No ALCOHOL: none Drugs: None Lives: with Family CURRENT MEDICATIONS Current Medications Current Medications Diltiazem HCl (Cardizem Iv Push) 10 mg 1X ONCE IVP Last administered on 04/25/21at 09:13; Start 04/25/21 at 09:00; Stop 04/25/21 at 09:01; Status DC Diltiazem HCl 125 mg/Sodium Chloride 125 ml @ 5 mls/hr CONT PRN IV SEE I/O RECORD Last administered on 04/26/21at 03:49; Start 04/25/21 at 09:00 Sodium Chloride 100 ml @ As Directed STK-MED ONCE .ROUTE ; Start 04/25/21 at 09:04; Stop 04/25/21 at 09:04; Status DC Diltiazem HCl (Cardizem) 125 mg STK-MED ONCE IV ; Start 04/25/21 at 09:04; Stop 04/25/21 at 09:04; Status DC Diltiazem HCl (Cardizem) 125 mg STK-MED ONCE IV ; Start 04/25/21 at 09:07; Stop 04/25/21 at 09:07; Status DC Apixaban (Eliquis) 5 mg BID PO Last administered on 04/26/21at 08:32; Start 04/25/21 at 21:00 Albuterol Sulfate (Ventolin Hfa Inhaler) 2 puff PRN Q4HRS PRN INH wheezing; Start 04/25/21 at 14:00 Insulin Human Lispro (HumaLOG) 0-7 UNITS TIDWMEALS SQ Last administered on 04/26/21at 08:32; Start 04/25/21 at 17:00 Dextrose (Dextrose 50%-Water Syringe) 12.5 gm PRN Q15MIN PRN IV SEE COMMENTS; Start 04/25/21 at 17:00 Albuterol/ Ipratropium (Duoneb) 3 ml 1X ONCE NEB Last administered on 04/25/21at 17:34; Start 04/25/21 at 17:30; Stop 04/25/21 at 17:39; Status DC Active Scripts Active Reported Eliquis (Apixaban) 5 Mg Tablet 5 Mg PO BID Albuterol Sulfate Neb Soln (Albuterol Sulfate) 1.25 Mg/3 Ml Vial.neb 1 Vial NEB Q6HRS Proair Hfa Inhaler (Albuterol Sulfate) 8.5 Gm Hfa.aer.ad 2 Puff IH PRN Q4-6HRS PRN 21 Days Dorzolamide-Timolol Eye Drops (Dorzolamide Hcl/Timolol Maleat) 10 Ml Drops 1 Drop OD DAILY07 Xalatan (Latanoprost) 2.5 Ml Drops 1 Drop OU BID76 Triamterene-Hctz 37.5-25 Mg Tb (Triamterene/Hydrochlorothiazid) 1 Each Tablet 1 Tab PO DAILY Pravastatin Sodium 40 Mg Tablet 1 Tab PO QHS Losartan Potassium (Losartan Potassium) 25 Mg Tablet 7.5 Mg PO DAILY Cartia Xt (Diltiazem Hcl) 180 Mg Cap.er.24h 180 Mg PO DAILY08 Basaglar Kwikpen U-100 (Insulin Glargine,Hum.rec.anlog) 100 Unit/1 Ml Insuln.pen 35 Unit SQ DAILY07 ALLERGIES Allergies: Coded Allergies: ibuprofen (Verified Allergy, Severe, Anaphylaxis, 03/31/21) Penicillins (Verified Allergy, Unknown, 03/31/21) ROS Review of Systems 14 point ROS conducted with pertinent positives noted above in HPI, although limited due to dementia PHYSICAL EXAM General: Alert, Cooperative, No acute distress, Other (oriented to person only ) Lungs: Other (diminished bases) Heart: Regular rate (SR/ST with frequent PAC's) Abdomen: Soft Extremities: No edema, Normal pulses Skin: No rashes, No breakdown Neuro: Normal speech, Sensation intact Psych/Mental Status: Mood NL, Other (forgetful ) MUSCULOSKELETAL: Osteoarthritic changes both hands VITALS Vital Signs Vital Signs Date Time Temp Pulse Resp B/P (MAP) Pulse Ox O2 Delivery O2 Flow Rate FiO2 04/26/21 07:58 100 20 117/97 (104) 95 Nasal Cannula 2.0 04/26/21 05:40 97.8 LABS LABS Laboratory Tests Test 04/25/21 08:50 04/25/21 12:08 04/25/21 15:50 04/25/21 16:53 White Blood Count 7.7 x10^3/uL (4.0-11.0) Red Blood Count 4.26 x10^6/uL (3.50-5.40) Hemoglobin 12.2 g/dL (12.0-15.5) Bedside Hemoglobin 12.6 gm/dL Hematocrit 37.2 % (36.0-47.0) Bedside Hematocrit 37 % Mean Corpuscular Volume 87 fL (79-100) Mean Corpuscular Hemoglobin 29 pg (25-35) Mean Corpuscular Hemoglobin Concent 33 g/dL (31-37) Red Cell Distribution Width 14.7 % (11.5-14.5) Platelet Count 323 x10^3/uL (140-400) Neutrophils (%) (Auto) 58 % (31-73) Lymphocytes (%) (Auto) 26 % (24-48) Monocytes (%) (Auto) 12 % (0-9) Eosinophils (%) (Auto) 3 % (0-3) Basophils (%) (Auto) 1 % (0-3) Neutrophils # (Auto) 4.4 x10^3uL (1.8-7.7) Lymphocytes # (Auto) 2.0 x10^3/uL (1.0-4.8) Monocytes # (Auto) 0.9 x10^3/uL (0.0-1.1) Eosinophils # (Auto) 0.2 x10^3/uL (0.0-0.7) Basophils # (Auto) 0.1 x10^3/uL (0.0-0.2) Bedside Sodium 136 mmol/L (135-145) Sodium Level 136 mmol/L (136-145) Bedside Potassium 3.4 mmol/L (3.5-5.0) Potassium Level 3.4 mmol/L (3.5-5.1) Bedside Chloride 99 mmol/L (98-110) Chloride Level 100 mmol/L (98-107) Carbon Dioxide Level 26 mmol/L (21-32) Bedside Total CO2 24 mmol/L (23-32) Anion Gap 18 mmol/L (6-14) Bedside Blood Urea Nitrogen 18 mg/dL (8-26) Blood Urea Nitrogen 17 mg/dL (7-20) Creatinine 1.2 mg/dL (0.6-1.0) Bedside Creatinine 1.2 mg/dL (0.5-1.4) Estimated GFR (Cockcroft-Gault) 42.7 BUN/Creatinine Ratio 14 (6-20) Glucose Level 193 mg/dL (60-99) Calcium Level 9.2 mg/dL (8.5-10.1) Bedside Ionized Calcium (Omero) 1.17 mmol/L (1.13-1.32) Total Bilirubin 0.3 mg/dL (0.2-1.0) Aspartate Amino Transf (AST/SGOT) 15 U/L (15-37) Alanine Aminotransferase (ALT/SGPT) 13 U/L (14-59) Alkaline Phosphatase 86 U/L (46-116) Bedside Troponin I 0.04 ng/ml (<0.08) EH-Btk-V-Type Natriuretic Peptide 992 pg/mL (0-449) Total Protein 7.2 g/dL (6.4-8.2) Albumin 2.9 g/dL (3.4-5.0) Albumin/Globulin Ratio 0.7 (1.0-1.7) Glucose (Fingerstick) 150 mg/dL (70-99) 235 mg/dL (70-99) Troponin I Quantitative 0.019 ng/mL (0-0.055) Test 04/25/21 20:11 04/26/21 08:25 Glucose (Fingerstick) 216 mg/dL (70-99) 336 mg/dL (70-99) ASSESSMENT/PLAN Assessment/Plan 1. Chest pain, atypical; initial trop negative 2. Tachyarrhythmia; on Cardizem gtt. Initially thought to be in AFIB, but EKG and tele appears to be sinus tach with frequent PAC's 3. Hypertension; controlled 4. Hyperlipidmia; statin 5. Diabetes, II 6. CKD 7. Hypokalemia 8. Dementia 9. H/o DVT on Eliquis therapy Recommendations Trend trop Lipids, TSH, Mg level Echo to assess LV systolic function Resume oral Cardizem Eliquis for h/o DVT Outpatient event monitor AINSLEY LEWIS MD 04/26/21 1705: CARDIAC CONSULT ASSESSMENT/PLAN Assessment/Plan Patient seen and examined. Agree with [employer]BER's assessment and plan. Chest pain with atypical features. Myocardial infarction has been ruled out. Patient was thought to be having atrial fibrillation but review of EKG and telemetry showed sinus tachycardia with frequent PACs. Agree with stopping Cardizem drip and resume oral Cardizem. Continue Eliquis for history of DVT. Plan 2D echo and outpatient event monitor recording. Thank you for your consultation EVONNE WILHELM APRN Apr 26, 2021 08:50 AINSLEY LEWIS MD Apr 26, 2021 17:05
[2021-04-26] MEDS ORDERED: METOPROLOL TARTRATE 5 MG/5 ML VIAL. IV PRN (09:15)
[2021-04-26] MEDS ORDERED: POTASSIUM CHLORIDE 20 MEQ TABLET.ER. PO ONE (09:15)
[2021-04-26] MEDS ORDERED: INSULIN GLARGINE SYRINGE. SQ ONE (10:45)
--- NOTE | 2021-04-26 15:53 | NUR ---
ok to transfer pt to tele status per dr stearns
--- NOTE | 2021-04-26 15:54 | NUR ---
pt becoming increasingly confused throughout the day. pt hollering out for daughter and , thinks she is at home, pulling off tele, o2, spo2 and bp cuff. pt constantly asking to get up and walk around. pt was a two max almost total lift to the bedside commode twice today, informed pt she is not able to get up and walk around at this time. spoke with pt and ot, they will see pt first thing in the morning.
--- NOTE | 2021-04-26 16:49 | NUR ---
pt very restless and confused, trying to get out of bed, pulling at things. pt given magazines and newspaper, she did not want them. tv turned on, distracted pt temporarily. pt then given busy apron, this did not distract her for long. this rn called pt to talk to pt, pt currently on phone with him for distraction
[2021-04-26 19:05] LABS: THYROID STIM HORMONE (TSH) 1.455 uIU/mL (0.358-3.740)
[2021-04-26] MEDS: MORPHINE SULFATE 2 MG/ML DISP.SYRIN. IV PRN (20:39)
--- NOTE | 2021-04-26 20:52 | NUR ---
Pt trying to get out of bed "I can't breathe." Pt's oxygen level 89% on room air. Placed oxygen at 2 liters per nasal cannula. Reassured pt and had her breathe in her nose and out her mouth. Pt sats 94%.
--- NOTE | 2021-04-26 21:39 | PN ---
DATE: 04/26/2021 ATTENDING PHYSICIAN: Dr. Delgadillo. SUBJECTIVE: No new complaints. She is pleasantly confused, but alert. OBJECTIVE FINDINGS: VITAL SIGNS: Blood pressure this morning is 127/65, pulse is irregularly irregular between 90 and 110, oxygen saturation 95% on 2 liters by nasal cannula. She is afebrile. HEENT: Head is without trauma. Pupils are reactive. Sclerae nonicteric. Oropharynx clear. NECK: Supple, no bruits identified. LUNGS: Clear. CARDIOVASCULAR: Irregularly irregular rhythm. No gallops. ABDOMEN: Soft. EXTREMITIES: Without edema. NEUROLOGIC: Focally intact. Pleasantly confused. LABORATORY STUDIES: Cardiac enzymes are negative for coronary ischemia. Sugars are a bit high and this will be addressed. ASSESSMENT: An 85-year-old female with: 1. Atrial fibrillation with rapid ventricular rate. 2. Underlying dementia. 3. Coronary ischemia ruled out. 4. Type 2 diabetes. PLAN: 1. Carlos per Cardiology. 2. Echocardiogram ordered. 3. We should convert her to oral Cardizem at a higher dose. 4. Glucose control. SHERI/PANCHO DR: SHERI/anatoly TID: [id number] CC: LITA PIMENTEL MD
[2021-04-27 00:01] VITALS: BP 125/64
[2021-04-27] MEDS: MORPHINE SULFATE 2 MG/ML DISP.SYRIN. IV PRN (03:20)
[2021-04-27 06:55] VITALS: BP 121/74
[2021-04-27 08:26] VITALS: BP 121/74
[2021-04-27] MEDS: APIXABAN 5 MG TABLET. PO SCH (08:26)
[2021-04-27] MEDS: INSULIN LISPRO 300 UNITS/3 ML VIAL. SQ SCH (08:29)
--- NOTE | 2021-04-27 08:48 | PDOC ---
CARDIO Progress Notes Date & Time Date of Service DATE: 04/27/21 TIME: 08:45 Time of Evaluation 08:45 Subjective Notes no chest pain, dizziness, diaphoresis, SOA better Vitals Vitals Vital Signs Date Time Temp Pulse Resp B/P (MAP) Pulse Ox O2 Delivery O2 Flow Rate FiO2 04/27/21 08:26 87 121/74 04/27/21 06:55 98.6 20 94 2.0 04/27/21 03:50 Nasal Cannula Weight Weight [ ] Input and Output I.O. Intake and Output 04/27/21 07:00 Intake Total 650 ml Balance 650 ml Intake Oral 650 ml # Voids 7 Laboratory Labs Laboratory Tests Test 04/25/21 08:50 04/25/21 12:08 04/25/21 15:50 04/25/21 16:53 White Blood Count 7.7 x10^3/uL (4.0-11.0) Red Blood Count 4.26 x10^6/uL (3.50-5.40) Hemoglobin 12.2 g/dL (12.0-15.5) Bedside Hemoglobin 12.6 gm/dL Hematocrit 37.2 % (36.0-47.0) Bedside Hematocrit 37 % Mean Corpuscular Volume 87 fL (79-100) Mean Corpuscular Hemoglobin 29 pg (25-35) Mean Corpuscular Hemoglobin Concent 33 g/dL (31-37) Red Cell Distribution Width 14.7 % (11.5-14.5) Platelet Count 323 x10^3/uL (140-400) Neutrophils (%) (Auto) 58 % (31-73) Lymphocytes (%) (Auto) 26 % (24-48) Monocytes (%) (Auto) 12 % (0-9) Eosinophils (%) (Auto) 3 % (0-3) Basophils (%) (Auto) 1 % (0-3) Neutrophils # (Auto) 4.4 x10^3uL (1.8-7.7) Lymphocytes # (Auto) 2.0 x10^3/uL (1.0-4.8) Monocytes # (Auto) 0.9 x10^3/uL (0.0-1.1) Eosinophils # (Auto) 0.2 x10^3/uL (0.0-0.7) Basophils # (Auto) 0.1 x10^3/uL (0.0-0.2) Bedside Sodium 136 mmol/L (135-145) Sodium Level 136 mmol/L (136-145) Bedside Potassium 3.4 mmol/L (3.5-5.0) Potassium Level 3.4 mmol/L (3.5-5.1) Bedside Chloride 99 mmol/L (98-110) Chloride Level 100 mmol/L (98-107) Carbon Dioxide Level 26 mmol/L (21-32) Bedside Total CO2 24 mmol/L (23-32) Anion Gap 18 mmol/L (6-14) Bedside Blood Urea Nitrogen 18 mg/dL (8-26) Blood Urea Nitrogen 17 mg/dL (7-20) Creatinine 1.2 mg/dL (0.6-1.0) Bedside Creatinine 1.2 mg/dL (0.5-1.4) Estimated GFR (Cockcroft-Gault) 42.7 BUN/Creatinine Ratio 14 (6-20) Glucose Level 193 mg/dL (60-99) Calcium Level 9.2 mg/dL (8.5-10.1) Bedside Ionized Calcium (Omero) 1.17 mmol/L (1.13-1.32) Total Bilirubin 0.3 mg/dL (0.2-1.0) Aspartate Amino Transf (AST/SGOT) 15 U/L (15-37) Alanine Aminotransferase (ALT/SGPT) 13 U/L (14-59) Alkaline Phosphatase 86 U/L (46-116) Bedside Troponin I 0.04 ng/ml (<0.08) DT-Mgi-M-Type Natriuretic Peptide 992 pg/mL (0-449) Total Protein 7.2 g/dL (6.4-8.2) Albumin 2.9 g/dL (3.4-5.0) Albumin/Globulin Ratio 0.7 (1.0-1.7) Glucose (Fingerstick) 150 mg/dL (70-99) 235 mg/dL (70-99) Troponin I Quantitative 0.019 ng/mL (0-0.055) Test 04/25/21 20:11 04/26/21 08:25 04/26/21 08:59 04/26/21 11:34 Glucose (Fingerstick) 216 mg/dL (70-99) 336 mg/dL (70-99) 247 mg/dL (70-99) Magnesium Level 1.8 mg/dL (1.8-2.4) Troponin I Quantitative < 0.017 ng/mL (0-0.055) Triglycerides Level 49 mg/dL (0-150) Cholesterol Level 143 mg/dL (0-200) LDL Cholesterol, Calculated 51 mg/dL (0-100) VLDL Cholesterol, Calculated 9 mg/dL (0-40) Non-HDL Cholesterol Calculated 60 mg/dL (0-129) HDL Cholesterol 83 mg/dL (40-60) Cholesterol/HDL Ratio 1.0 Thyroid Stimulating Hormone (TSH) 1.455 uIU/mL (0.358-3.740) Test 04/26/21 17:09 04/26/21 19:57 04/27/21 07:21 Glucose (Fingerstick) 270 mg/dL (70-99) 217 mg/dL (70-99) 222 mg/dL (70-99) Physical Exams HEENT: Neck Supple W Full Motion Chest: Symmetric Lungs: Clear to Auscultation, Other (diminished bases) Heart: RRR Abdomen: Soft N/T Extremities: No Edema Neurology: alert, follow commands Assessment Assessment 1. Chest pain; trop series negative, AMI ruled out 2. Tachyarrhythmia; Initially thought to be in AFIB, but EKG and tele appears to be ST/SR with frequent PAC's. Possible MAT. No evidence of AFIB 3. Hypertension; controlled 4. Hyperlipidmia; statin 5. Diabetes, II 6. CKD 7. Hypokalemia; replaced 8. Dementia 9. H/o DVT on Eliquis therapy Recommendations Echo to assess LV systolic function Cardizem for rate control Eliquis for h/o DVT Consider outpatient event monitor Supportive EVONNE WILHELM APRN Apr 27, 2021 08:48
--- NOTE | 2021-04-27 10:42 | DS ---
DATE OF DISCHARGE: 04/27/2021 ATTENDING PHYSICIAN: Dr. Delgadillo. FINAL DISCHARGE DIAGNOSES: 1. Atrial fibrillation with rapid ventricular rate, controlled. 2. Underlying dementia. 3. Coronary ischemia ruled out. 4. Intrinsic asthma, nonsmoker. 5. Type 2 diabetes mellitus, insulin-dependent. HISTORY AND PHYSICAL: The patient is a very pleasant demented female who has been cared for by her elderly at home. She comes in with some shortness of breath and palpitations. She was found to be in atrial fibrillation with rapid ventricular rate. She was given Cardizem intravenously. She was taking Cardizem p.o. at home. She was admitted for further treatment and evaluation. PHYSICAL EXAMINATION: Please see the dictated note. PERTINENT LABORATORY AND X-RAY STUDIES: Admission hemoglobin was 12.2 g/dL with a white count of 7700. Her chemistry panel was fairly unremarkable with a sodium of 136 mEq, potassium 3.4 mEq, creatinine is 1.2. Nonfasting blood sugar on admission was 193. Cardiac enzymes were drawn, they were negative for coronary ischemia. Subsequent blood sugars were also drawn. She had improvement down to the low 200s and upper 100s for her blood sugar. COURSE IN THE HOSPITAL: The patient was admitted to our intensive care. She was started on a Cardizem drip to maintain. Formal Cardiology consultation was obtained and their recommendation is on the chart. They did not feel this is ischemic. They increased the Cardizem dose and switch it over to oral Cardizem at a higher dose. They are planning to have place an event monitor. She has had a recent event monitor placed, which was not diagnostic. By the 3rd hospital day, the patient was comfortable. There were not any signs of heart failure. Chest x-ray was clear. She was ready for discharge. I had a chance to discuss the case with the daughter who is a registered nurse. She is discharged home then with the following changes in meds. Her diltiazem has been increased to 360 p.o. daily. In addition, she will continue her albuterol as needed, Eliquis 5 mg b.i.d., insulin as scheduled, Xalatan eye drops, losartan, pravastatin, and triamterene/hydrochlorothiazide. She will follow up with Dr. Pimentel at scheduled time. During this hospitalization, she had issues, but presented as a DNR per advanced directives. We can verify this through Dr. Pimentel's office. She was discharged then from our hospital in stable condition with explicit written and followup care. TOTAL DISCHARGE TIME SPENT: [address]: Will TID: [id number] CC: LITA PIMENTEL MD
--- NOTE | 2021-04-27 11:22 | NUR ---
DISCHARGE SPOKE WITH BY PHONE, RE: CONCERN WITH HIS ABILITY TO TRANSFER PT WITHOUT ANOTHER TO ASSIST. HE CALLED BACK WITH AN ALTERNATE PLAN FOR TRANSPORT HOME. PT IV ET TELE DISCONTINUED. DISCUSSED DISCHARGE INSTRUCTIONS, ALSO DISCUSSED WITH BY PHONE. 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 W/C SENT WITH PT, [place] [facility] TO RETURN AFTER DROP OFF. RX FOR RICCO SENT WITH PT AT TIME OF DISCHARGE.
== END 2021-04-27 11:22 | disposition home or self-care (01) | DRG 392 ==
LOC: ER 08:33 → ICU 09:41 → 1 SOUTH 04-27 06:22
PROVIDERS: ADMIT Hospitalist; ATTEND Hospitalist
DX: K21.9 Gastro-esophageal reflux disease without esophagitis (principal); N18.4 Chronic kidney disease, stage 4 (severe); I48.0 Paroxysmal atrial fibrillation; M19.90 Unspecified osteoarthritis, unspecified site; F03.90 Unspecified dementia, unspecified severity, without behavioral disturbance, psychotic disturbance, mood disturbance, and anxiety; I12.9 Hypertensive chronic kidney disease with stage 1 through stage 4 chronic kidney disease, or unspecified chronic kidney disease; E11.22 Type 2 diabetes mellitus with diabetic chronic kidney disease; E11.40 Type 2 diabetes mellitus with diabetic neuropathy, unspecified; Z66 Do not resuscitate; J45.909 Unspecified asthma, uncomplicated; E87.6 Hypokalemia; Z88.6 Allergy status to analgesic agent; Z88.0 Allergy status to penicillin; Z79.4 Long term (current) use of insulin; Z86.718 Personal history of other venous thrombosis and embolism; Z79.01 Long term (current) use of anticoagulants; Z90.710 Acquired absence of both cervix and uterus
CPT/HCPCS: 36415; 71045; 80047; 80053; 80061; 82947; 83735; 83880; 84443; 84484; 85025; 93005; 96374; J1815; J2270; J3490; 97530; 97535; 99285-25

== ENCOUNTER 2021-04-28 11:07 | Inpatient (IN) | payer MEDICARE ==
[~2021-04-28] VITALS: Ht 162.6 cm; Wt 65.2 kg
[~2021-04-28 11:07] MED LIST changes: +APIX5TAB3 PO
--- NOTE | 2021-04-28 11:19 | PHYS DOC ---
Past History Past Medical History: Arthritis Past Surgical History: Tonsillectomy Alcohol Use: None General Adult EDM: Chief Complaint: SHOULDER INJURY HPI: HPI: Patient is a 85-year-old female brought in by EMS for right shoulder and chest pain and lower extremity weakness.. History mostly provided by EMS. Patient was recently discharged for new onset A. fib RVR. Per EMS report she was wheezing and satting 90% on room air, was given a DuoNeb and O2 sats improved to 97%. Patient does not use home oxygen. Patient is currently on Eliquis to be treated for a right-sided DVT. Per EMS report the daughter had told him that her primary care physician, Dr. Brennan, wanted her admitted for observation in hopes to get her to a rehab facility. Per patient's daughter patient was ambulatory without a cane or walker prior to admission. When she is admitted she is in the hospital for 2 days and cannot get a bed. There was time for patient to be discharged she was unable to walk and had to be assisted to the wheelchair. Family is currently having difficult time caring for patient. Review of Systems: Review of Systems: All other systems within normal limits except for as noted in the HPI Allergies: Allergies: Allergies Coded Allergies Type Severity Reaction Last Updated Verified ibuprofen Allergy Severe Anaphylaxis 03/31/21 Yes Penicillins Allergy Unknown 03/31/21 Yes Physical Exam: PE: Constitutional: Well developed, well nourished, no acute distress, non-toxic appearance. [] HENT: Normocephalic, atraumatic, bilateral external ears normal, nose normal. [] Eyes: PERRLA, conjunctiva normal, no discharge. [] Neck: No rigidity, supple, no stridor. [] Cardiovascular: Irregularly irregular rhythm, brisk cap refill [] Lungs & Thorax: Non labored symmetric respirations, no tachypnea or respiratory distress [] Abdomen: Soft, nondistended. Skin: Warm, dry, no erythema, no rash. [] Back: Unremarkable Extremities: No deformities, range of motion grossly intact, no lower extremity edema. Range of motion of right shoulder intact, no deformity. [] Neurologic: Alert and oriented X 3, no focal deficits noted. [] Psychologic: Affect normal, judgement normal, mood normal. [] EKG: EKG: Irregular regular rhythm, atrial fibrillation, heart rate 105 bpm, left axis deviation, no ST elevation or depression [] Radiology/Procedures: Radiology/Procedures: [address] [address] IMAGING REPORT Signed PATIENT: EDISON ZHU AACCOUNT: [id number] : 1935 LOCATION: ER AGE: 85 SEX: F EXAM STATUS: REG ER ORD. PHYSICIAN: GODWIN CARD MD REASON: lower ext weakness PROCEDURE: CT HEAD WO CONTRAST INDICATION: Reason: lower ext weakness / Spl. Instructions: / History: COMPARISON: April 01, 2021 TECHNIQUE: Axial CT images obtained through the head without intravenous contrast. One or more of the following individualized dose reduction techniques were utilized for this examination: 1. Automated exposure control; 2. Adjustment of the mA and/or kV according to patient size; 3. Use of iterative reconstruction technique. FINDINGS: No intracranial hemorrhage. No significant midline shift. Ventricles and sulci are globally prominent. Scattered foci of low attenuation within the white matter. Calcific atherosclerosis. Distal left internal carotid artery appears prominent in size compared to the right. IMPRESSION: * No acute intracranial hemorrhage. * Scattered regions of low attenuation within the white matter. Non-specific in nature but a common finding and frequently secondary to small vessel ischemic disease. If there is high concern for acute causes clinically MRI could better assess acuity. * Calcific atherosclerosis. * There is some fluid in the maxillary sinuses which could be from congestion or sinusitis. Electronically signed by: Radha Johnson MD (04/28/2021 12:06 PM) DESKTOP- [id number] DICTATED AND SIGNED BY: RADHA JOHNSON MD DATE: 04/28/21 1200 CC: LITA BRENNAN MD; GODWIN CARD MD ~MTH0 0 [][address] [address] IMAGING REPORT Signed PATIENT: EDISON ZHU AACCOUNT: [id number] : 1935 LOCATION: ER AGE: 85 SEX: F EXAM STATUS: REG ER ORD. PHYSICIAN: GODWIN CARD MD REASON: wheezing, right shoulder pain PROCEDURE: CHEST AP ONLY EXAM: CHEST ONE VIEW. HISTORY: Wheezing, right shoulder pain. COMPARISON: CT 04/01/2021. FINDINGS: A frontal view of the chest is obtained. There are no confluent infiltrates. There is no pneumothorax or pleural effusion. A rounded density projecting over the right inferior hilum measures 1.8 cm. There is no associated nodule on recent CTA and this is likely a normal vascular shadow. The heart is not enlarged. There are atherosclerotic calcifications of the aorta. Glenohumeral osteoarthritis appears moderate on the right greater than left. IMPRESSION: 1. No confluent infiltrates. Electronically signed by: Cynthia Angulo MD (04/28/2021 12:00 PM) [id number] DICTATED AND SIGNED BY: HERSON ANGULO MD DATE: 04/28/21 1158 CC: LITA BRENNAN MD; GODWIN CARD MD ~MTH0 0 Heart Score: C/O Chest Pain: Yes HEART Score for Chest Pain: HEART Score for Chest Pain Response (Comments) Value History Slighlty/Non-Suspicious 0 ECG Nonspecific Repolarizatio 1 Age > 65 2 Risk Factors 1 or 2 Risk Factors 1 Troponin < Normal Limit 0 Total 4 Risk Factors: Risk Factors: DM, Current or recent (<one month) smoker, HTN, HLP, family history of CAD, obesity. Risk Scores: Score 0 - 3: 2.5% MACE over next 6 weeks - Discharge Home Score 4 - 6: 20.3% MACE over next 6 weeks - Admit for Clinical Observation Score 7 - 10: 72.7% MACE over next 6 weeks - Early Invasive Strategies Course & Med Decision Making: Course & Med Decision Making Pertinent Labs and Imaging studies reviewed. (See chart for details) Discussed with patient's primary care provider, he would like her admitted for further observation for her increase in BNP from 3 days ago. We will transfer to [facility] due to no bed availability at this hospital. [] Dragon Disclaimer: Dragyu Disclaimer: This electronic medical record was generated, in whole or in part, using a voice recognition dictation system. Departure Departure: Impression: Primary Impression: Heart failure Additional Impression: Weakness Disposition: 02 SHORT TERM HOSPITAL Condition: STABLE Referrals: LITA BRENNAN MD (PCP) GODWIN CARD MD Apr 28, 2021 11:19
--- NOTE | 2021-04-28 11:29 | EKG ---
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
[2021-04-28 11:58] LABS: BASO % 0 % (0-3); EOS % 0 % (0-3); HEMATOCRIT 36.6 % (36.0-47.0); HEMOGLOBIN 11.9 g/dL (12.0-15.5); LYMPH % 15 % (24-48); MEAN CORPUSCULAR HEMOGLOBIN 28 pg (25-35); MEAN CORPUSCULAR HGB CONC 32 g/dL (31-37); MEAN CORPUSCULAR VOLUME 87 fL (79-100); MONO # 1.5 x10^3/uL (0.0-1.1); MONO % 11 % (0-9); NEUT # 10.3 x10^3uL (1.8-7.7); NEUT % 74 % (31-73); PLATELET COUNT 252 x10^3/uL (140-400); RED BLOOD COUNT 4.19 x10^6/uL (3.50-5.40); RED CELL DISTRIBUTION WIDTH 14.9 % (11.5-14.5); WHITE BLOOD COUNT 13.9 x10^3/uL (4.0-11.0)
--- NOTE | 2021-04-28 12:03 | RAD ---
EXAM: CHEST ONE VIEW. HISTORY: Wheezing, right shoulder pain. COMPARISON: CT 04/01/2021. FINDINGS: A frontal view of the chest is obtained. There are no confluent infiltrates. There is no pneumothorax or pleural effusion. A rounded density p rojecting over the right inferior hilum measures 1.8 cm. There is no associated nodule on recent CTA and this is likely a normal vascular shadow. The heart is not enlarged. There are atherosclerotic alexa cifications of the aorta. Glenohumeral osteoarthritis appears moderate on the right greater than left . IMPRESSION: 1. No confluent infiltrates. Electronically signed by: Cynthia Angulo MD (04/28/2021 12:00 PM) [id number]
--- NOTE | 2021-04-28 12:09 | RAD ---
INDICATION: Reason: lower ext weakness / Spl. Instructions: / History: COMPARISON: April 01, 2021 TECHNIQUE: Axial CT images obtained through the head without intravenous contrast. One or more of the following individualized dose reduction techniques were utilized for this examinat ion: 1. Automated exposure control; 2. Adjustment of the mA and/or kV according to patient size; 3 . Use of iterative reconstruction technique. FINDINGS: No intracranial hemorrhage. No significant midline shift. Ventricles and sulci are globally prominent. Scattered foci of low attenuation within the white matter. Calcific atherosclerosis. Distal left internal carotid artery appears prominent in size compared to the right. IMPRESSION: * No acute intracranial hemorrhage. * Scattered regions of low attenuation within the white matter. Non-specific in nature but a common finding and frequently secondary to small vessel ischemic disease. If there is high concern for acut e causes clinically MRI could better assess acuity. * Calcific atherosclerosis. * There is some fluid in the maxillary sinuses which could be from congestion or sinusitis. Electronically signed by: Porter Rahman MD (04/28/2021 12:06 PM) [id number]
[2021-04-28 12:30] LABS: CALCIUM 9.1 mg/dL (8.5-10.1); CREATININE 1.6 mg/dL (0.6-1.0); GFR 30.6; POTASSIUM 4.3 mmol/L (3.5-5.1)
[2021-04-28 12:42] LABS: ALBUMIN 2.6 g/dL (3.4-5.0); ALBUMIN/GLOBULIN RATIO 0.7 (1.0-1.7); MAGNESIUM 2.2 mg/dL (1.8-2.4); TOTAL BILIRUBIN 0.3 mg/dL (0.2-1.0); TOTAL PROTEIN 6.6 g/dL (6.4-8.2)
[2021-04-28 13:55] LABS: COLOR,URINE YELLOW
[2021-04-28 13:56] LABS: AMORPHOUS SEDIMENT,UR PRESENT /HPF; BACTERIA,URINE 0 /HPF (0-FEW); BILIRUBIN,URINE NEG (NEG); CLARITY,URINE HAZY; GLUCOSE,URINE 100 mg/dL (NEG); GRANULAR CASTS,URINE FEW /HPF; NITRITE,URINE NEG (NEG); UROBILINOGEN,URINE 0.2 mg/dL (0.2 mg/dL)
[2021-04-28] MEDS ORDERED: MORPHINE SULFATE 2 MG/ML DISP.SYRIN. IVP PRN (14:30)
[2021-04-28] MEDS ORDERED: ACETAMINOPHEN 325 MG TABLET PO PRN (14:30)
[2021-04-28 20:27] VITALS: BP 151/78
[2021-04-28] MEDS ORDERED: DEXTROSE 50% 25 GM / 50ML DISP.SYRIN. IV PRN (22:15)
--- NOTE | 2021-04-28 23:04 | NUR ---
PT ADMITTED TO [facility] VIA EMS ACCOMPANIED BY ER STAFF. PT ASSISTED X3 FROM GURNEY TO BED. PT AOX2 AND IS POOR HISTORIAN. PT REPORTS PAIN LEVEL RATING 7/10 ON PAIN SCALE IN RIGHT SHOULDER. PT GIVEN PRN IVP MORPHINE INDICATED. PT WAS ALSO GIVEN ICE PACK TO HELP RELIEVE BREAK THROUGH PAIN. PT USED BED ELIZONDO SHORTLY AFTER ADMISSION BUT WAS ONLY ABLE TO URINATE MINIMAL AMOUNT. THIS NURSE THEN USED BLADDER SCANNER AND FOUND PT HAD MORE THAN 994ML OF URINE STILL IN BLADDER. 16F SMITH THEN PLACED INDICATED BY RETENTION. PT IS NOW RESTING COMFORTABLY IN BED W/ NO COMPLAINTS.
[2021-04-28 23:23] VITALS: BP 137/77
[2021-04-29] MEDS ORDERED: NON FORMULARY ITEM (Albuterol Sulfate (Albuterol Sulfate Neb Soln) 1 VIAL) NEB SCH
[2021-04-29 06:15] VITALS: BP 152/69
[2021-04-29] MEDS: ALBUTEROL SULFATE 2.5 MG/3 ML NEBU. IH PRN ×2 (06:21→11:56)
[2021-04-29] MEDS ORDERED: FUROSEMIDE 40 MG/4 ML VIAL IVP ONE (06:30)
[2021-04-29] MEDS: LOSARTAN 25 MG TABLET. PO SCH (08:11)
[2021-04-29] MEDS: APIXABAN 5 MG TABLET. PO SCH ×2 (08:11→20:35)
[2021-04-29] MEDS: TRIAMTERENE/HCTZ 37.5/25MG TABLET. PO SCH (08:12)
[2021-04-29] MEDS: INSULIN LISPRO 300 UNITS/3 ML VIAL. SQ SCH ×3 (08:13→17:39)
[2021-04-29] MEDS: LATANOPROST 0.005% OPHTH SOLUTION 2.5ML BOTTLE. OU SCH ×2 (08:14→17:39)
[2021-04-29] MEDS: INSULIN GLARGINE SYRINGE. SQ SCH (08:14)
--- NOTE | 2021-04-29 08:27 | PDOC2 ---
CARDIAC CONSULT DATE OF CONSULT DOS: DATE: 04/29/21 TIME: 08:24 REASON FOR CONSULT Reason for Consult CHF REFERRING PHYSICIAN Referring Physician Dr. Lugo SOURCE Source: Chart review, Patient HPI History of Present Illness This is a 85 yo female who presented secondary to weakness. Patient was seen earlier this week due to chest pressure and shortness of breath. Was initially thought to be in AFIB with RVR, but review of EKG and tele showed ST with frequent PAC's vs possible MAT. Has had thorough cardiac evaluation recently through [facility], Dr. Horner. Daughter reports that heart is strong. Event monitor did not show any AFIB or flutter, but was told she had some irregular beats. Is on Eliquis therapy for recent DVT. Daughter reports she was extremely weak upon discharge from the hospital this week. Elderly was unable to care for her at home. He had reached out to primary care provided to get her to rehab facility but he wanted her evaluated at the ED prior to going to rehab. Family requesting [facility] upon discharge. Daughter also reports that patient uses albuterol inhaler very frequently at home due to asthma. Patient presented denies any chest pain, dizziness, diaphoresis, palpitations, or nausea/vomiting. Family reports compliance with medications. PAST MEDICAL HISTORY Past Medical History Cardiovascular: hyperipidemia Pulmonary: Asthma CENTRAL NERVOUS SYSTEM: Dementia Heme/Onc: Other (DVT) Musculoskeletal: Osteoarthritis Renal/: Chronic renal insuff Endocrine: Diabetes PAST SURGICAL HISTORY Past Surgical History: Hysterectomy FAMILY HISTORY Family History: Family History Unknown SOCIAL HISTORY Social History Smoke: No ALCOHOL: none Drugs: None Lives: with Family CURRENT MEDICATIONS Current Medications Current Medications Morphine Sulfate (Morphine 2mg Syringe) 2 mg PRN Q2HR PRN IVP PAIN Last administered on 04/28/21at 20:30; Start 04/28/21 at 14:30; Stop 04/29/21 at 14:29 Acetaminophen (Tylenol) 650 mg PRN Q4HRS PRN PO FEVER > 100.3'F; Start 04/28/21 at 14:30; Stop 04/29/21 at 14:29 Albuterol Sulfate (Ventolin) 2.5 mg PRN Q4HRS PRN IH wheezing Last administered on 04/29/21at 06:21; Start 04/28/21 at 22:00 Apixaban (Eliquis) 5 mg BID PO Last administered on 04/29/21at 08:11; Start 04/18 11/08 at 09:00 Diltiazem HCl (Cardizem 24hr Cd) 180 mg DAILY08 PO Last administered on 04/29/21at 04:40; Start 04/29/21 at 05:00 Dorzolamide/ Timolol (Cosopt) 1 drop DAILY07 OD ; Start 04/29/21 at 07:00 Latanoprost (Xalatan) 1 drop BID76 OU Last administered on 04/29/21at 08:14; Start 04/29/21 at 07:00 Losartan Potassium (Cozaar) 12.5 mg DAILY PO Last administered on 04/29/21at 08:11; Start 04/29/21 at 09:00 Triamterene/HCTZ (Maxzide 37.5/ 25mg) 1 tab DAILY PO Last administered on 04/29/21at 08:12; Start 04/29/21 at 09:00 Non-Formulary Medication (Albuterol Sulfate (Albuterol Sulfate Neb Soln)) 1 vial Q6HRS NEB ; Start 04/29/21 at 00:00; Status UNV Insulin Glargine (Lantus Syringe) 35 unit DAILY07 SQ Last administered on 04/29/21at 08:14; Start 04/29/21 at 07:00 Atorvastatin Calcium (Lipitor) 10 mg QHS PO ; Start 04/29/21 at 21:00 Insulin Human Lispro (HumaLOG) 0-9 UNITS TIDWMEALS SQ Last administered on 04/29/21at 08:13; Start 04/29/21 at 08:00 Dextrose (Dextrose 50%-Water Syringe) 12.5 gm PRN Q15MIN PRN IV SEE COMMENTS; Start 04/28/21 at 22:15 Furosemide (Lasix) 40 mg 1X ONCE IVP Last administered on 04/29/21at 06:16; Start 04/29/21 at 06:30; Stop 04/29/21 at 06:31; Status DC Active Scripts Active Reported Eliquis (Apixaban) 5 Mg Tablet 5 Mg PO BID Albuterol Sulfate Neb Soln (Albuterol Sulfate) 1.25 Mg/3 Ml Vial.neb 1 Vial NEB Q6HRS Proair Hfa Inhaler (Albuterol Sulfate) 8.5 Gm Hfa.aer.ad 2 Puff IH PRN Q4-6HRS PRN 21 Days Dorzolamide-Timolol Eye Drops (Dorzolamide Hcl/Timolol Maleat) 10 Ml Drops 1 Drop OD DAILY07 Xalatan (Latanoprost) 2.5 Ml Drops 1 Drop OU BID76 Triamterene-Hctz 37.5-25 Mg Tb (Triamterene/Hydrochlorothiazid) 1 Each Tablet 1 Tab PO DAILY Pravastatin Sodium 40 Mg Tablet 1 Tab PO QHS Losartan Potassium (Losartan Potassium) 25 Mg Tablet 7.5 Mg PO DAILY Cartia Xt (Diltiazem Hcl) 180 Mg Cap.er.24h 180 Mg PO DAILY08 Basaglar Kwikpen U-100 (Insulin Glargine,Hum.rec.anlog) 100 Unit/1 Ml Insuln.pen 35 Unit SQ DAILY07 ALLERGIES Allergies: Coded Allergies: ibuprofen (Verified Allergy, Severe, Anaphylaxis, 04/28/21) Penicillins (Verified Allergy, Intermediate, 04/29/21) ROS Review of Systems 14 point ROS conducted with pertinent positives noted above in HPI although limited due to confusion. PHYSICAL EXAM Physical Exam General: Alert, Cooperative, No acute distress, Other (oriented to person only ) Lungs: Other (diminished bases, fine expiratory wheezes) Heart: Regular rate (MAT) Abdomen: Soft Extremities: No edema, Normal pulses Skin: No rashes, No breakdown Neuro: Normal speech, Sensation intact Psych/Mental Status: Mood NL, Other (confused) MUSCULOSKELETAL: Osteoarthritic changes both hands VITALS Vital Signs Vital Signs Date Time Temp Pulse Resp B/P (MAP) Pulse Ox O2 Delivery O2 Flow Rate FiO2 04/29/21 08:11 121 152/69 04/29/21 06:15 97.6 24 94 Nasal Cannula 2.0 LABS LABS Laboratory Tests Test 04/28/21 11:30 04/28/21 12:05 04/28/21 13:00 04/29/21 06:15 White Blood Count 13.9 x10^3/uL (4.0-11.0) Red Blood Count 4.19 x10^6/uL (3.50-5.40) Hemoglobin 11.9 g/dL (12.0-15.5) Hematocrit 36.6 % (36.0-47.0) Mean Corpuscular Volume 87 fL (79-100) Mean Corpuscular Hemoglobin 28 pg (25-35) Mean Corpuscular Hemoglobin Concent 32 g/dL (31-37) Red Cell Distribution Width 14.9 % (11.5-14.5) Platelet Count 252 x10^3/uL (140-400) Neutrophils (%) (Auto) 74 % (31-73) Lymphocytes (%) (Auto) 15 % (24-48) Monocytes (%) (Auto) 11 % (0-9) Eosinophils (%) (Auto) 0 % (0-3) Basophils (%) (Auto) 0 % (0-3) Neutrophils # (Auto) 10.3 x10^3uL (1.8-7.7) Lymphocytes # (Auto) 2.0 x10^3/uL (1.0-4.8) Monocytes # (Auto) 1.5 x10^3/uL (0.0-1.1) Eosinophils # (Auto) 0.0 x10^3/uL (0.0-0.7) Basophils # (Auto) 0.0 x10^3/uL (0.0-0.2) Sodium Level 133 mmol/L (136-145) Potassium Level 4.3 mmol/L (3.5-5.1) Chloride Level 97 mmol/L (98-107) Carbon Dioxide Level 27 mmol/L (21-32) Anion Gap 9 (6-14) Blood Urea Nitrogen 39 mg/dL (7-20) Creatinine 1.6 mg/dL (0.6-1.0) Estimated GFR (Cockcroft-Gault) 30.6 BUN/Creatinine Ratio 24 (6-20) Glucose Level 341 mg/dL (70-99) Lactic Acid Level 1.4 mmol/L (0.4-2.0) Calcium Level 9.1 mg/dL (8.5-10.1) Phosphorus Level 3.4 mg/dL (2.6-4.7) Magnesium Level 2.2 mg/dL (1.8-2.4) Total Bilirubin 0.3 mg/dL (0.2-1.0) Aspartate Amino Transf (AST/SGOT) 17 U/L (15-37) Alanine Aminotransferase (ALT/SGPT) 13 U/L (14-59) Alkaline Phosphatase 84 U/L (46-116) Troponin I Quantitative < 0.017 ng/mL (0-0.055) < 0.017 ng/mL (0-0.055) PY-Lqf-M-Type Natriuretic Peptide 2999 pg/mL (0-449) Total Protein 6.6 g/dL (6.4-8.2) Albumin 2.6 g/dL (3.4-5.0) Albumin/Globulin Ratio 0.7 (1.0-1.7) Prothrombin Time 11.0 SEC (9.4-11.4) Prothromb Time International Ratio 1.1 (0.9-1.1) Urine Collection Type U cath Urine Color Yellow Urine Clarity Hazy Urine pH 5.0 Urine Specific [place] 1.025 Urine Protein 30 mg/dl (NEG-TRACE) Urine Glucose (UA) 100 mg/dL (NEG) Urine Ketones (Stick) Neg mg/dL (NEG) Urine Blood Trace (NEG) Urine Nitrite Neg (NEG) Urine Bilirubin Neg (NEG) Urine Urobilinogen Dipstick 0.2 mg/dL (0.2 mg/dL) Urine Leukocyte Esterase Neg (NEG) Urine RBC 1-2 /HPF (0-2) Urine WBC 1-4 /HPF (0-4) Urine Squamous Epithelial Cells None /LPF Urine Amorphous Sediment Present /HPF Urine Bacteria 0 /HPF (0-FEW) Urine Granular Casts Few /HPF Urine Mucus Mod /LPF Test 04/29/21 07:26 Glucose (Fingerstick) 282 mg/dL (70-99) ASSESSMENT/PLAN Assessment/Plan 1. Weakness 2. Tachyarrhythmia; Initially thought to be in AFIB, but review of EKG and tele shows MAT. No AFIB or flutter noted 3. Diastolic CHF; NT Pro BNP elevated, but CXR without pulmonary edema and exam not consistent with fluid overload 4. Hypertension; controlled 5. Hyperlipidmia; statin 6. Diabetes, II 7. CKD 8. Dementia 9. H/o DVT on Eliquis therapy Recommendations Obtain recent event monitor and echo from Dr. Horner at [facility]. Resume oral Cardizem; will increase for better rate control. No BB with asthma, wheezing Eliquis for h/o DVT Supportive care Family requesting [facility] rehab upon discharge Supportive care EVONNE WILHELM APRN Apr 29, 2021 08:27
[2021-04-29] MEDS: DORZOLAMIDE/TIMOLOL 2%/0.5% OPHTH SOLUTION 10ML BOTTLE. OD SCH (09:46)
[2021-04-29 10:58] VITALS: BP 125/64
[2021-04-29] MEDS ORDERED: DEXTROSE 50% 25 GM / 50ML DISP.SYRIN. IV PRN (15:00)
[2021-04-29 15:36] VITALS: BP 109/66
--- NOTE | 2021-04-29 15:49 | HP ---
ADMIT DATE: 04/28/2021 HISTORY OF PRESENT ILLNESS: The patient is an 85-year-old female patient who was brought by EMS for right shoulder and chest pain and lower extremity weakness. She was recently discharged after a brief admission for new onset of atrial fibrillation with RVR where EMS reports she was wheezing and satting at 90% on room air. She was given a DuoNeb and oxygen saturation improved to 97%. The patient does not use any home oxygen. She was on Eliquis to treat her right-sided DVT. Her daughter had told basically her primary care physician sent her to the Emergency Room to be admitted for observation and eventually to get to a rehab facility. As per daughter's account, the patient was ambulatory without a cane or walker prior to admission. When she is admitted, she is in the hospital for 2 days and cannot get out of bed. By the time the patient was discharged, she was unable to walk and had to be assisted to the wheelchair and the family was basically having difficult time caring for her at home and therefore, she was admitted with a plan for her to be admitted to [facility]. The patient herself complained of shortness of breath, but denied any chest pain. She was evaluated in the Emergency Room, has had lab work done which showed that she has leukocytosis with a white cell count of 13,900. Her chemistry showed that she has impaired kidney function and elevated beta-natriuretic peptide and hypoalbuminemia. Her prothrombin time is normal. Her urinalysis was essentially unremarkable. We will resume all her medications and consult the Cardiology team as well as physical and occupational therapy and long term care social worker and hopefully discharge her to [facility] if she qualifies for that. PAST MEDICAL HISTORY: Significant for pure hypercholesterolemia, hypercoagulability state, essential hypertension, paroxysmal atrial fibrillation, wandering atrial pacemaker, thoracic aortic aneurysm without rupture, chronic obstructive pulmonary disease, dyspnea on exertion and chronic kidney disease due to type 2 diabetes mellitus. PAST SURGICAL HISTORY: Significant for cataract surgery and hysterectomy. ALLERGIES: SHE IS ALLERGIC TO PENICILLIN and IBUPROFEN. MEDICATIONS: She is currently on following medications: She is on albuterol sulfate 2 puffs every 4-6 hours, albuterol sulfate 1.25 mg in 3 mL by nebulizer every 6 hours, apixaban 5 mg twice a day, pravastatin sodium 40 mg at bedtime, diltiazem 180 mg daily, losartan potassium 7.5 mg daily, triamterene/hydrochlorothiazide 37.5/25 one tablet once a day. She is on dorzolamide/timolol one drop to both eyes daily, latanoprost one drop to both eyes twice a day. She is on Lantus 35 units at bedtime. FAMILY HISTORY: Significant for the fact the father has heart disease and at age of 72. Mother has cerebrovascular accident and at age of 77. She has a brother with heart disease and alcohol abuse. SOCIAL HISTORY: She is and lives with her . She has 2 sons from previous marriage and 1 daughter. She never smoked, does not drink alcohol or do any recreational drugs. 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 REVIEW OF SYSTEMS: As per history of present illness. PHYSICAL EXAMINATION: GENERAL: On arrival to the Emergency Room, the patient was somewhat pale, but not jaundiced or cyanosed, no lymphadenopathy, no thyromegaly, no jugular venous distention. No limb edema. VITAL SIGNS: Her heart rate was 93, blood pressure was 116/62, temperature was 98.4, respiratory rate was 25 and oxygen saturation was 95% on room air. HEAD, EYES, EARS, NOSE, AND THROAT: Normocephalic, atraumatic. NECK: Supple. HEART: Showed normal first and second heart sounds, no gallop or murmur. CHEST: Shows central trachea, equally reduced expansion, reduced air entry, vesicular breath sounds. I really could not appreciate any crepitation or rhonchi. ABDOMEN: Distended, soft, nontender. NEUROLOGIC: She is awake, alert, but confused. All her cranial nerves are grossly intact. She moves extremities without difficulty; however, she is very weak and unsteady on her feet and very high fall risk. LABORATORY DATA: Her lab work on arrival showed a white cell count of 13,900, hemoglobin 11.9, hematocrit 36.6, MCV 87 and platelet count 252,000 with a manual differential showed 74% polymorphs, 15% lymphocytes, 11% monocytes. Her chemistry showed serum sodium 133, potassium 4.3, chloride 97, bicarbonate 27, anion gap of 9, BUN 39, creatinine 1.6, estimated GFR was 30 mL per minute. Her glucose was 341, calcium was 9.1, magnesium 2.2. Total bilirubin, AST, ALT, alkaline phosphatase were normal. Beta-natriuretic peptide was 2999. Total protein 6.6, albumin was 2.6. Her prothrombin time, INR were 11 and 1.1. Urinalysis was essentially unremarkable. Her chest x-ray showed there is no confluent infiltrate or pneumothorax or pleural effusion, rounded density projecting over the right inferior hilum measures 1.8 cm. There is no associated nodule on recent CT angio and this is likely a normal vascular shadow. The heart is not enlarged. There are atherosclerotic calcification of the aorta. Glenohumeral osteoarthritis appears moderate on the right greater than left. ASSESSMENT AND PLAN: 1. The patient was admitted with weakness. 2. [id number] diastolic congestive heart failure. 3. Tachyarrhythmias, initially thought to be atrial fibrillation, but the tele showed that she has multi-atrial tachycardia. 4. Hypertension. 5. Hyperlipidemia. 6. Type 2 diabetes mellitus. 7. Chronic kidney disease. 8. Dementia. The patient has a history of deep vein thrombosis for which she is currently on Eliquis. We did consult the funeral pre arrangement counselor and her diltiazem was resumed. She was also given one dose of IV Lasix. We will continue with apixaban and all other medications and consult the physical and occupational therapy for evaluation and treatment. EDGAR DR: Dia TID: [id number]
[2021-04-29] MEDS: IPRATRPIUM/ALBUTEROL 0.5/2.5MG 3 ML NEBU. NEB SCH ×3 (16:00→20:35)
--- NOTE | 2021-04-29 18:25 | NUR ---
1600Breathing tx non administer. Busy in ED and not notified.
[2021-04-29 19:54] VITALS: BP 108/61
[2021-04-29] MEDS: MONTELUKAST 10 MG TABLET. PO SCH (20:35)
[2021-04-29] MEDS: ATORVASTATIN CALCIUM 10 MG TABLET. PO SCH (20:35)
[2021-04-29] MEDS: methylPREDNISolone SOD SUCC PF 40 MG/ML VIAL. IV SCH (20:35)
[2021-04-30 05:14] VITALS: BP 117/62
[2021-04-30] MEDS: IPRATRPIUM/ALBUTEROL 0.5/2.5MG 3 ML NEBU. NEB SCH ×4 (05:24→20:23)
[2021-04-30 06:27] LABS: HEMATOCRIT 36.2 % (36.0-47.0); HEMOGLOBIN 11.7 g/dL (12.0-15.5); RED BLOOD COUNT 4.15 x10^6/uL (3.50-5.40); RED CELL DISTRIBUTION WIDTH 14.9 % (11.5-14.5); WHITE BLOOD COUNT 9.6 x10^3/uL (4.0-11.0)
[2021-04-30 06:45] LABS: ALBUMIN 2.1 g/dL (3.4-5.0); ALBUMIN/GLOBULIN RATIO 0.4 (1.0-1.7); CREATININE 1.7 mg/dL (0.6-1.0); GFR 28.6; POTASSIUM 4.5 mmol/L (3.5-5.1); TOTAL BILIRUBIN 0.4 mg/dL (0.2-1.0)
[2021-04-30] MEDS: TRIAMTERENE/HCTZ 37.5/25MG TABLET. PO SCH (09:00)
[2021-04-30] MEDS: APIXABAN 5 MG TABLET. PO SCH ×2 (09:14→21:23)
[2021-04-30] MEDS: methylPREDNISolone SOD SUCC PF 40 MG/ML VIAL. IV SCH ×2 (09:16→21:23)
[2021-04-30] MEDS: LATANOPROST 0.005% OPHTH SOLUTION 2.5ML BOTTLE. OU SCH ×2 (09:17→17:13)
[2021-04-30] MEDS: DORZOLAMIDE/TIMOLOL 2%/0.5% OPHTH SOLUTION 10ML BOTTLE. OD SCH (09:17)
[2021-04-30] MEDS: LOSARTAN 25 MG TABLET. PO SCH (09:18)
[2021-04-30] MEDS: INSULIN LISPRO 300 UNITS/3 ML VIAL. SQ SCH ×7 (09:38→17:15)
[2021-04-30] MEDS: INSULIN GLARGINE SYRINGE. SQ SCH ×2 (09:38→21:22)
[2021-04-30 11:35] VITALS: BP 145/75
[2021-04-30 15:52] VITALS: BP 114/68
--- NOTE | 2021-04-30 17:45 | PDOC ---
DATE OF SERVICE: DOS: DATE: 04/30/21 TIME: 17:41 SUBJECTIVE: Patient seen and examined OBJECTIVE: Problems: Problems Medical Problems: (1) Heart failure Status: Acute (2) Weakness Status: Acute Vital Signs/I&O: Vital Signs Date Time Temp Pulse Resp B/P (MAP) Pulse Ox O2 Delivery O2 Flow Rate FiO2 04/30/21 15:52 97.8 72 18 114/68 (83) 93 04/30/21 15:06 Room Air 04/30/21 09:00 2.0 I & O 04/29/21 04/29/21 04/30/21 15:00 23:00 07:00 Intake Total 360 ml 120 ml 0 ml Output Total 925 ml 400 ml 300 ml Balance -565 ml -280 ml -300 ml Labs: Laboratory Tests Test 04/29/21 20:24 04/30/21 06:04 04/30/21 09:23 04/30/21 12:15 Glucose (Fingerstick) 332 mg/dL (70-99) H 421 mg/dL (70-99) H 465 mg/dL (70-99) H White Blood Count 9.6 x10^3/uL (4.0-11.0) Red Blood Count 4.15 x10^6/uL (3.50-5.40) Hemoglobin 11.7 g/dL (12.0-15.5) L Hematocrit 36.2 % (36.0-47.0) Mean Corpuscular Volume 87 fL (79-100) Mean Corpuscular Hemoglobin 28 pg (25-35) Mean Corpuscular Hemoglobin Concent 32 g/dL (31-37) Red Cell Distribution Width 14.9 % (11.5-14.5) H Platelet Count 270 x10^3/uL (140-400) Sodium Level 131 mmol/L (136-145) L Potassium Level 4.5 mmol/L (3.5-5.1) Chloride Level 93 mmol/L (98-107) L Carbon Dioxide Level 28 mmol/L (21-32) Anion Gap 10 (6-14) Blood Urea Nitrogen 42 mg/dL (7-20) H Creatinine 1.7 mg/dL (0.6-1.0) H Estimated GFR (Cockcroft-Gault) 28.6 BUN/Creatinine Ratio 25 (6-20) H Glucose Level 457 mg/dL (70-99) H Calcium Level 9.0 mg/dL (8.5-10.1) Total Bilirubin 0.4 mg/dL (0.2-1.0) Aspartate Amino Transferase (AST) 17 U/L (15-37) Alanine Aminotransferase (ALT) 16 U/L (14-59) Alkaline Phosphatase 79 U/L (46-116) FL-Sgx-D-Type Natriuretic Peptide 4419 pg/mL (0-449) H Total Protein 7.0 g/dL (6.4-8.2) Albumin 2.1 g/dL (3.4-5.0) L Albumin/Globulin Ratio 0.4 (1.0-1.7) L Test 04/30/21 16:55 Glucose (Fingerstick) 406 mg/dL (70-99) H Physical Exam: The patient is alert and pain-free. Chest. Mildly decreased breath sounds. CV. Regular rate and rhythm. Abdomen. Soft without masses or tenderness. ASSESSMENT: Weakness. Improving. Patient states that she is feeling better. Tachyarrhythmia; Initially thought to be in AFIB, but review of EKG and tele shows MAT. No AFIB or flutter noted. Back on Cardizem. Rate under better control. Diastolic CHF; NT Pro BNP elevated, but CXR without pulmonary edema and exam not consistent with fluid overload. Improved. Continue treatments. Followed at [facility]. Hypertension; controlled Hyperlipidmia; statin Diabetes, II CKD Dementia H/o DVT on Eliquis therapy Justification of Admission: Justification of Admission: Justification of Admission Dx: Yes EVE ANTUNEZ MD Apr 30, 2021 17:45
[2021-04-30 19:21] VITALS: BP 112/56
[2021-04-30] MEDS: MONTELUKAST 10 MG TABLET. PO SCH (21:22)
[2021-04-30] MEDS: ATORVASTATIN CALCIUM 10 MG TABLET. PO SCH (21:22)
[2021-04-30 23:09] VITALS: BP 104/61
--- NOTE | 2021-05-01 02:36 | PN ---
DATE: 04/30/2021 SUBJECTIVE: The patient is sitting in her chair, eating her lunch comfortably, in no apparent distress. She is definitely much improved. She is more awake, alert. She apparently managed to walk all the way to the shower and back with a walker. She was evaluated by the physical therapist and she was able to walk to the bathroom. She herself stated that she is doing much better. Unfortunately, as we started her on steroids, her blood sugar has been extremely high and we made some adjustment to her insulin. PHYSICAL EXAMINATION: GENERAL: When I saw her today, she looked pale, not jaundiced or cyanosed. No thyromegaly. No jugular venous distention. No limb edema. VITAL SIGNS: Her heart rate was 66, blood pressure was 145/75, temperature 97.8, respiratory rate 20, and oxygen saturation was 95% on room air. HEAD, EYES, EARS, NOSE, AND THROAT: Normocephalic, atraumatic. NECK: Supple. HEART: Normal first and second heart sounds, no gallop or murmur. CHEST: Clear to auscultation. No crepitation or rhonchi. ABDOMEN: Distended, soft, nontender. NEUROLOGIC: She is demented, but without any obvious lateralizing sign. She moves all extremities without difficulty. She ambulates with a walker with assistance. Her intake and output were incompletely recorded. LABORATORY DATA: Her lab work this morning showed a white cell count 9600, hemoglobin 11.7, hematocrit 36, MCV 87 and platelet count 270,000. Serum sodium 131, potassium was 4.5, chloride 93, bicarbonate 28, anion gap of 10, BUN 42, creatinine 1.7. Estimated GFR was 28 mL per minute. Her glucose was 157, calcium was 9. Total bilirubin, AST, ALT, alkaline phosphatase were normal. Beta-natriuretic peptid was ____. Total protein 7, albumin 2.1. ASSESSMENT: 1. Generalized weakness, multifactorial. 2. Acute on chronic diastolic congestive heart failure. 3. Tachyarrhythmia. 4. Hypertension. 5. Hyperlipidemia. 6. Type 2 diabetes mellitus, poorly controlled. 7. Chronic kidney disease. 8. Bronchial asthma/chronic obstructive pulmonary disease. 9. Dementia. 10. Right lower extremity deep vein thrombosis, which she is on Eliquis. PLAN: To continue with IV antibiotic. Continue with steroids. I increased her Lantus to 45 units and her Humalog to 15 units before meals and sliding scale. We will continue with steroids and hopefully tomorrow, we can cut down the steroids to 40 mg to be taken in a tapering fashion and she can be discharged to [facility]. TONI/IVA DR: Dia TID: [id number]
[2021-05-01 05:21] VITALS: BP 113/58
[2021-05-01] MEDS: IPRATRPIUM/ALBUTEROL 0.5/2.5MG 3 ML NEBU. NEB SCH ×4 (05:38→20:47)
[2021-05-01] MEDS: DORZOLAMIDE/TIMOLOL 2%/0.5% OPHTH SOLUTION 10ML BOTTLE. OD SCH (06:29)
[2021-05-01] MEDS: LATANOPROST 0.005% OPHTH SOLUTION 2.5ML BOTTLE. OU SCH ×2 (06:29→18:00)
[2021-05-01 07:19] LABS: BASO % 0 % (0-3); EOS % 0 % (0-3); HEMATOCRIT 34.8 % (36.0-47.0); HEMOGLOBIN 11.4 g/dL (12.0-15.5); LYMPH # 0.9 x10^3/uL (1.0-4.8); LYMPH % 8 % (24-48); MEAN CORPUSCULAR HEMOGLOBIN 29 pg (25-35); MEAN CORPUSCULAR HGB CONC 33 g/dL (31-37); MEAN CORPUSCULAR VOLUME 87 fL (79-100); MONO # 0.3 x10^3/uL (0.0-1.1); MONO % 3 % (0-9); NEUT # 9.6 x10^3uL (1.8-7.7); NEUT % 89 % (31-73); PLATELET COUNT 271 x10^3/uL (140-400); RED BLOOD COUNT 4.01 x10^6/uL (3.50-5.40); WHITE BLOOD COUNT 10.8 x10^3/uL (4.0-11.0)
[2021-05-01] MEDS: INSULIN GLARGINE SYRINGE. SQ SCH ×2 (07:44→20:12)
[2021-05-01 07:46] LABS: ALBUMIN 2.1 g/dL (3.4-5.0); ALBUMIN/GLOBULIN RATIO 0.4 (1.0-1.7); CREATININE 1.9 mg/dL (0.6-1.0); GFR 25.1; POTASSIUM 4.2 mmol/L (3.5-5.1); TOTAL BILIRUBIN 0.2 mg/dL (0.2-1.0); TOTAL PROTEIN 6.8 g/dL (6.4-8.2)
[2021-05-01 07:54] LABS: CALCIUM 8.8 mg/dL (8.5-10.1)
[2021-05-01] MEDS: TRIAMTERENE/HCTZ 37.5/25MG TABLET. PO SCH (08:25)
[2021-05-01] MEDS: APIXABAN 5 MG TABLET. PO SCH ×2 (08:25→20:11)
[2021-05-01] MEDS: LOSARTAN 25 MG TABLET. PO SCH (08:26)
[2021-05-01] MEDS: INSULIN LISPRO 300 UNITS/3 ML VIAL. SQ SCH ×6 (08:31→17:48)
[2021-05-01] MEDS: methylPREDNISolone SOD SUCC PF 40 MG/ML VIAL. IV SCH (08:32)
[2021-05-01 11:00] VITALS: BP 100/54
[2021-05-01 15:40] VITALS: BP 113/59
--- NOTE | 2021-05-01 15:59 | PDOC ---
DATE OF SERVICE: DOS: DATE: 05/01/21 TIME: 15:57 SUBJECTIVE: Patient seen and examined. She is feeling better today. OBJECTIVE: Problems: Problems Medical Problems: (1) Heart failure Status: Acute (2) Weakness Status: Acute Vital Signs/I&O: Vital Signs Date Time Temp Pulse Resp B/P (MAP) Pulse Ox O2 Delivery O2 Flow Rate FiO2 05/01/21 15:40 93 Room Air 05/01/21 15:40 98.7 73 18 113/59 (77) 04/30/21 19:21 2.0 I & O 04/30/21 04/30/21 05/01/21 15:00 23:00 07:00 Intake Total 200 ml 240 ml Output Total 900 ml Balance 200 ml -660 ml Labs: Laboratory Tests Test 04/30/21 16:55 04/30/21 20:00 05/01/21 06:11 05/01/21 06:35 Glucose (Fingerstick) 406 mg/dL (70-99) H 441 mg/dL (70-99) H 374 mg/dL (70-99) H White Blood Count 10.8 x10^3/uL (4.0-11.0) Red Blood Count 4.01 x10^6/uL (3.50-5.40) Hemoglobin 11.4 g/dL (12.0-15.5) L Hematocrit 34.8 % (36.0-47.0) L Mean Corpuscular Volume 87 fL (79-100) Mean Corpuscular Hemoglobin 29 pg (25-35) Mean Corpuscular Hemoglobin Concent 33 g/dL (31-37) Red Cell Distribution Width 15.0 % (11.5-14.5) H Platelet Count 271 x10^3/uL (140-400) Neutrophils (%) (Auto) 89 % (31-73) H Lymphocytes (%) (Auto) 8 % (24-48) L Monocytes (%) (Auto) 3 % (0-9) Eosinophils (%) (Auto) 0 % (0-3) Basophils (%) (Auto) 0 % (0-3) Neutrophils # (Auto) 9.6 x10^3uL (1.8-7.7) H Lymphocytes # (Auto) 0.9 x10^3/uL (1.0-4.8) L Monocytes # (Auto) 0.3 x10^3/uL (0.0-1.1) Eosinophils # (Auto) 0.0 x10^3/uL (0.0-0.7) Basophils # (Auto) 0.0 x10^3/uL (0.0-0.2) Sodium Level 132 mmol/L (136-145) L Potassium Level 4.2 mmol/L (3.5-5.1) Chloride Level 95 mmol/L (98-107) L Carbon Dioxide Level 28 mmol/L (21-32) Anion Gap 9 (6-14) Blood Urea Nitrogen 68 mg/dL (7-20) H Creatinine 1.9 mg/dL (0.6-1.0) H Estimated GFR (Cockcroft-Gault) 25.1 BUN/Creatinine Ratio 36 (6-20) H Glucose Level 403 mg/dL (70-99) H Calcium Level 8.8 mg/dL (8.5-10.1) Total Bilirubin 0.2 mg/dL (0.2-1.0) Aspartate Amino Transferase (AST) 24 U/L (15-37) Alanine Aminotransferase (ALT) 21 U/L (14-59) Alkaline Phosphatase 74 U/L (46-116) Total Protein 6.8 g/dL (6.4-8.2) Albumin 2.1 g/dL (3.4-5.0) L Albumin/Globulin Ratio 0.4 (1.0-1.7) L Physical Exam: Chest. Mildly decreased breath sounds. CV. Regular rate and rhythm. Abdomen. Soft. ASSESSMENT: Weakness. Continues to improve.. Patient states that she is feeling better. Tachyarrhythmia; Initially thought to be in AFIB, but review of EKG and tele shows MAT. No AFIB or flutter noted. Back on Cardizem. Rate under better control. Diastolic CHF; NT Pro BNP elevated, but CXR without pulmonary edema and exam not consistent with fluid overload. Improved. Continue treatments. Followed at [facility]. Hypertension; controlled Hyperlipidmia; statin Diabetes, II CKD Dementia H/o DVT on Eliquis therapy Justification of Admission: Justification of Admission: Justification of Admission Dx: Yes EVE ANTUNEZ MD May 01, 2021 15:59
[2021-05-01 19:00] VITALS: BP 118/60
--- NOTE | 2021-05-01 19:07 | NUR ---
Nursing note Pt has been calm and cooperative for this nurse during this shift. pt has not verbalized any pain for this nurse.
[2021-05-01] MEDS: MONTELUKAST 10 MG TABLET. PO SCH (20:11)
[2021-05-01] MEDS: ATORVASTATIN CALCIUM 10 MG TABLET. PO SCH (20:11)
[2021-05-01 23:55] VITALS: BP 118/60
--- NOTE | 2021-05-02 02:23 | NUR ---
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
[2021-05-02] MEDS: ALBUTEROL SULFATE 2.5 MG/3 ML NEBU. IH PRN (04:24)
[2021-05-02 06:05] VITALS: BP 111/59
--- NOTE | 2021-05-02 06:11 | PN ---
SUBJECTIVE: The patient is sitting in a chair comfortably, in no apparent distress. She is awake, alert, continued to complain of some shortness of breath, but was able to walk with a walker with standby assist. She is maintaining her oxygen saturation at 95% on room air. PHYSICAL EXAMINATION: GENERAL: When I examined her, she was pale, but no jaundice, cyanosis, no lymphadenopathy, no thyromegaly, no jugular venous distention. No limb edema. VITAL SIGNS: Her heart rate was 72, blood pressure 100/54, temperature was 98, respiratory rate was 18, and oxygen saturation was 95% on room air. HEAD, EYES, EARS, NOSE AND THROAT: Shows normocephalic, atraumatic. NECK: Supple. HEART: Showed normal first and second heart sounds. No gallop, rub or murmur. CHEST: Clear to auscultation, no crepitation or rhonchi. ABDOMEN: Distended, soft, and nontender. NEUROLOGIC: She is demented, but without any obvious lateralizing sign. All other cranial nerves intact. She moves extremities without difficulty. She ambulates with a walker, standby assist. INTAKE AND OUTPUT: Her intake was 480, output was 1625. LABORATORY DATA: This morning showed a white cell count of 10,800, hemoglobin 11, hematocrit 34, MCV 87, and platelet count 271,000. Serum sodium was 132, potassium 4.2, chloride 95, bicarbonate 28, anion gap of 9, BUN 68, creatinine 1.9. Estimated GFR was 25 mL per minute. Her glucose was 403, calcium was 8.8. Total bilirubin, AST, ALT, and alkaline phosphatase were normal. Total protein is 6.8, albumin was 2.1. Her prothrombin time, INR normal. Urinalysis was essentially unremarkable. ASSESSMENT: 1. Generalized weakness, multifactorial. 2. Acute on chronic diastolic congestive heart failure. 3. Tachyarrhythmia. 4. Hypertension. 5. Hyperlipidemia. 6. Type 2 diabetes mellitus, poorly controlled. 7. Chronic kidney disease. 8. Bronchial asthma/chronic obstructive pulmonary disease exacerbation. 9. Dementia. 10. Right lower extremity deep vein thrombosis, which she is on Eliquis. PLAN: To continue with IV antibiotic. Continue with steroids. Continue to monitor blood sugar and adjust insulin as needed. I will cut down her methylprednisolone, start her on oral steroid tomorrow, and hopefully discharge her to [place] on Monday. JOSUÉ/EARLENE/SALLY DR: JOSUÉ/anatoly TID: [id number]
[2021-05-02] MEDS: IPRATRPIUM/ALBUTEROL 0.5/2.5MG 3 ML NEBU. NEB SCH ×4 (06:25→20:59)
--- NOTE | 2021-05-02 06:25 | NUR ---
not able to get to this due to being busy in the ER.
[2021-05-02 07:37] LABS: CALCIUM 8.9 mg/dL (8.5-10.1); CREATININE 1.8 mg/dL (0.6-1.0); GFR 26.7; POTASSIUM 4.3 mmol/L (3.5-5.1)
[2021-05-02] MEDS: LATANOPROST 0.005% OPHTH SOLUTION 2.5ML BOTTLE. OU SCH ×2 (08:23→18:24)
[2021-05-02] MEDS: DORZOLAMIDE/TIMOLOL 2%/0.5% OPHTH SOLUTION 10ML BOTTLE. OD SCH (08:23)
[2021-05-02] MEDS: INSULIN LISPRO 300 UNITS/3 ML VIAL. SQ SCH ×6 (08:28→17:26)
[2021-05-02] MEDS: INSULIN GLARGINE SYRINGE. SQ SCH ×2 (08:28→20:44)
[2021-05-02] MEDS: predniSONE 20 MG TABLET PO SCH (08:30)
[2021-05-02] MEDS: APIXABAN 5 MG TABLET. PO SCH ×2 (08:30→20:41)
[2021-05-02] MEDS: TRIAMTERENE/HCTZ 37.5/25MG TABLET. PO SCH (08:30)
[2021-05-02] MEDS: LOSARTAN 25 MG TABLET. PO SCH (08:31)
[2021-05-02 11:20] VITALS: BP 114/62
--- NOTE | 2021-05-02 14:19 | PDOC ---
DATE OF SERVICE: DOS: DATE: 05/02/21 TIME: 14:18 SUBJECTIVE: Patient seen and examined OBJECTIVE: Problems: Problems Medical Problems: (1) Heart failure Status: Acute (2) Weakness Status: Acute Vital Signs/I&O: Vital Signs Date Time Temp Pulse Resp B/P (MAP) Pulse Ox O2 Delivery O2 Flow Rate FiO2 05/02/21 09:38 97 Room Air 05/02/21 08:31 90 111/59 05/02/21 06:05 97.6 22 04/30/21 19:21 2.0 I & O 05/01/21 05/01/21 05/02/21 15:00 23:00 07:00 Intake Total 480 ml 440 ml 300 ml Output Total 1 ml 1000 ml 950 ml Balance 479 ml -560 ml -650 ml Labs: Laboratory Tests Test 05/01/21 16:52 05/01/21 20:01 05/02/21 06:45 05/02/21 07:33 Glucose (Fingerstick) 267 mg/dL (70-99) H 335 mg/dL (70-99) H 321 mg/dL (70-99) H Sodium Level 132 mmol/L (136-145) L Potassium Level 4.3 mmol/L (3.5-5.1) Chloride Level 96 mmol/L (98-107) L Carbon Dioxide Level 26 mmol/L (21-32) Anion Gap 10 (6-14) Blood Urea Nitrogen 75 mg/dL (7-20) H Creatinine 1.8 mg/dL (0.6-1.0) H Estimated GFR (Cockcroft-Gault) 26.7 Glucose Level 300 mg/dL (70-99) H Calcium Level 8.9 mg/dL (8.5-10.1) Test 05/02/21 11:47 Glucose (Fingerstick) 300 mg/dL (70-99) H Physical Exam: Chest. Mildly decreased breath sounds. CV regular rate and rhythm. Abdomen. Soft. ASSESSMENT: Weakness. Continues to improve.. Patient states that she is feeling better. Tachyarrhythmia; Initially thought to be in AFIB, but review of EKG and tele shows MAT. No AFIB or flutter noted. On Cardizem. Rate under better control. Diastolic CHF; NT Pro BNP elevated, but CXR without pulmonary edema and exam not consistent with fluid overload. Improved. Continue treatments. Follow[facility] at [facility]. Hypertension; controlled Hyperlipidmia; statin Diabetes, II CKD Dementia H/o DVT on Eliquis therapy Justification of Admission: Justification of Admission: Justification of Admission Dx: Yes EVE ANTUNEZ MD May 02, 2021 14:19
[2021-05-02 15:52] VITALS: BP 125/65
--- NOTE | 2021-05-02 18:26 | NUR ---
Nursing note Pt has been confused and forgetful for this nurse this shift. pt catheter was removed per order and policies and procedures.
[2021-05-02 18:51] VITALS: BP 104/60
[2021-05-02] MEDS: MONTELUKAST 10 MG TABLET. PO SCH (20:41)
[2021-05-02] MEDS: ATORVASTATIN CALCIUM 10 MG TABLET. PO SCH (20:41)
--- NOTE | 2021-05-02 22:22 | PN ---
DATE: 05/02/2021 SUBJECTIVE: The patient is sitting in the chair comfortably, slightly tachypneic; however, she is maintaining her oxygen saturation at 95% on room air. OBJECTIVE: HEAD, EYES, EARS, NOSE, AND THROAT: Normocephalic, atraumatic. NECK: Supple. HEART: Normal first and second heart sounds. No gallop, rub or murmur. CHEST: Clear to auscultation. I could not appreciate any crepitation or rhonchi. ABDOMEN: Distended, soft, nontender. NEUROLOGIC: She was grossly intact. Her intake was 440, output was 900. LABORATORY DATA: As of yesterday, her white cell count was 10,800, hemoglobin 11, hematocrit 34, MCV 97 and platelet count 271,000. Her chemistry showed a serum sodium of 132, potassium 4.3, chloride 96, bicarbonate 26, anion gap of 10, BUN 75, creatinine 1.8. Estimated GFR was 226 mL per minute. Her glucose was 300. Calcium was 8.9. ASSESSMENT: 1. Generalized weakness, multifactorial. 2. Acute on chronic diastolic congestive heart failure, improving. 3. Tachyarrhythmia. 4. Hypertension. 5. Hyperlipidemia. 6. Type 2 diabetes mellitus, poorly controlled. 7. Chronic kidney disease. 8. Bronchial asthma/chronic obstructive pulmonary disease exacerbation. 9. Dementia. 10. Right lower extremity deep vein thrombosis for which she is on Eliquis. PLAN: To continue with IV antibiotic. Continue with steroids. Continue to monitor blood sugar and adjust insulin as needed. She was switched to oral steroids and hopefully tomorrow, we will transfer her to [facility]. She continued to require large amount of insulin and I increased her scheduled Humalog insulin to 20 units before meals. AMM/EKT DR: JOSUÉ/anatoly TID: [id number]
[2021-05-02 23:00] VITALS: BP 108/72
[2021-05-03] MEDS: IPRATRPIUM/ALBUTEROL 0.5/2.5MG 3 ML NEBU. NEB SCH ×2 (05:11→11:06)
[2021-05-03 06:32] VITALS: BP 131/70
[2021-05-03] MEDS: LATANOPROST 0.005% OPHTH SOLUTION 2.5ML BOTTLE. OU SCH (06:43)
[2021-05-03] MEDS: DORZOLAMIDE/TIMOLOL 2%/0.5% OPHTH SOLUTION 10ML BOTTLE. OD SCH (06:43)
[2021-05-03] MEDS: INSULIN GLARGINE SYRINGE. SQ SCH (07:00)
[2021-05-03 07:06] LABS: CALCIUM 8.9 mg/dL (8.5-10.1); CREATININE 1.5 mg/dL (0.6-1.0); POTASSIUM 4.4 mmol/L (3.5-5.1)
[2021-05-03] MEDS: INSULIN LISPRO 300 UNITS/3 ML VIAL. SQ SCH ×4 (07:30→12:00)
[2021-05-03] MEDS: ALBUTEROL SULFATE 2.5 MG/3 ML NEBU. IH PRN (07:48)
--- NOTE | 2021-05-03 08:46 | PDOC ---
CARDIO Progress Notes Date & Time Date of Service DATE: 05/03/21 TIME: 08:46 Time of Evaluation 08:46 Subjective Notes No chest pain, palpitations, dizziness Vitals Vitals Vital Signs Date Time Temp Pulse Resp B/P (MAP) Pulse Ox O2 Delivery O2 Flow Rate FiO2 05/03/21 06:32 97.3 101 20 131/70 (90) 97 Room Air 04/30/21 19:21 2.0 Weight Weight [ ] Input and Output I.O. Intake and Output 05/03/21 07:00 Intake Total 1580 ml Output Total 1200 ml Balance 380 ml Intake Oral 1580 ml Output Urine Total 1200 ml # Voids 6 # Bowel Movements 2 Laboratory Labs Laboratory Tests Test 05/01/21 16:52 05/01/21 20:01 05/02/21 06:45 05/02/21 07:33 Glucose (Fingerstick) 267 mg/dL (70-99) 335 mg/dL (70-99) 321 mg/dL (70-99) Sodium Level 132 mmol/L (136-145) Potassium Level 4.3 mmol/L (3.5-5.1) Chloride Level 96 mmol/L (98-107) Carbon Dioxide Level 26 mmol/L (21-32) Anion Gap 10 (6-14) Blood Urea Nitrogen 75 mg/dL (7-20) Creatinine 1.8 mg/dL (0.6-1.0) Estimated GFR (Cockcroft-Gault) 26.7 Glucose Level 300 mg/dL (70-99) Calcium Level 8.9 mg/dL (8.5-10.1) Test 05/02/21 11:47 05/02/21 16:49 05/02/21 20:45 05/03/21 06:03 Glucose (Fingerstick) 300 mg/dL (70-99) 256 mg/dL (70-99) 178 mg/dL (70-99) 91 mg/dL (70-99) Test 05/03/21 06:22 05/03/21 07:06 Sodium Level 138 mmol/L (136-145) Potassium Level 4.4 mmol/L (3.5-5.1) Chloride Level 102 mmol/L (98-107) Carbon Dioxide Level 30 mmol/L (21-32) Anion Gap 6 (6-14) Blood Urea Nitrogen 66 mg/dL (7-20) Creatinine 1.5 mg/dL (0.6-1.0) Estimated GFR (Cockcroft-Gault) 33.0 Glucose Level 100 mg/dL (70-99) Calcium Level 8.9 mg/dL (8.5-10.1) Glucose (Fingerstick) 80 mg/dL (70-99) Physical Exams HEENT: Neck Supple W Full Motion Chest: Symmetric Lungs: Other (on RA) Heart: other (tele, WAP. rate controlled ) Abdomen: Soft N/T Extremities: No Edema Neurology: alert, follow commands, confused Assessment Assessment 1. Weakness; rehab modalities 2. Tachyarrhythmia; MAT, WAP. recent event monitor as noted below. No AFIB present. Continue Cardizem for rate control 3. Chronic diastolic CHF; LVEF 55-60%. Appears compensated. Follows with [facility]. 4. Hypertension; controlled 5. Hyperlipidmia; statin 6. Diabetes, II 7. DUANE on CKD; Cr improved 8. Dementia 9. H/o DVT on Eliquis therapy Records obtained from [facility] MPI 02/05/21 Normal perfusion with distal small breast attenuation artifact LVEF normal No stress induced EKG changes Echo 02/05/21 Mild LVH Normal LV systolic function with EF 55-60% Grade II diastolic dysfunction Left atrium is mildly dilated Mild aortic stenosis Mild mitral annular calcification Mild dilatation of the ascending aorta 3.9 cm 13-day Holter Monitor 01/26/21 Asymptomatic increased ventricular ectopic activity totaling 6.4% with included some triplets and 4 beat run on NSVT Increased asymptomatic supraventricular ectopic activity which included multiple short episodes of PAT up to 13 beats long No AFIB EVONNE WILHELM APRN May 03, 2021 08:46
[2021-05-03] MEDS: predniSONE 20 MG TABLET PO SCH (09:11)
[2021-05-03] MEDS: LOSARTAN 25 MG TABLET. PO SCH (09:11)
[2021-05-03] MEDS: APIXABAN 5 MG TABLET. PO SCH (09:12)
[2021-05-03] MEDS: TRIAMTERENE/HCTZ 37.5/25MG TABLET. PO SCH (09:12)
[2021-05-03 11:25] VITALS: BP 107/57
--- NOTE | 2021-05-03 12:43 | DISCH ---
DISCHARGE ORDERS DISCHARGE DATE: May 03, 2021 FINAL DIAGNOSIS acuteon chronic diastolic CHF TACHYARRHYTMIAS Copd Exacerbation CONDITION AT DISCHARGE: Stable Code Status: Full SNF STAY <30 DAYS: Yes POST DISCHARGE ORDERS: ACTIVITY ORDERS: Resume previous activity DIET AFTER DISCHARGE: ADA CHECKS AFTER DISCHARGE: CHECKS AFTER DISCHARGE: Check blood press - daily TREATMENT/EQUIPMENT ORDERS: ADAPTIVE EQUIPMENT NEEDED: None DISCHARGE MEDICATIONS: Home Meds Reported Medications Apixaban (ELIQUIS) 5 Mg Tablet, 5 MG PO BID for DVT, TAB 04/25/21 Albuterol Sulfate (ALBUTEROL SULFATE NEB SOLN) 1.25 Mg/3 Ml Vial.neb, 1 VIAL NEB Q6HRS for ., #150 ML 04/06/21 Albuterol Sulfate (PROAIR HFA INHALER) 8.5 Gm Hfa.aer.ad, 2 PUFF IH PRN Q4-6HRS PRN for wheezing for 21 Days, #1 INHALER 0 Refills 04/06/21 Dorzolamide Hcl/Timolol Maleat (DORZOLAMIDE-TIMOLOL EYE DROPS) 10 Ml Drops, 1 DROP OD DAILY07 for ., #10 ML 0 Refills 04/06/21 Latanoprost (XALATAN) 2.5 Ml Drops, 1 DROP OU BID76 for GLAUCOMA, DROP 04/06/21 Triamterene/Hydrochlorothiazid (TRIAMTERENE-HCTZ 37.5-25 MG TB) 1 Each Tablet, 1 TAB PO DAILY for ., #30 TAB 5 Refills 04/06/21 Pravastatin Sodium (PRAVASTATIN SODIUM) 40 Mg Tablet, 1 TAB PO QHS for ., #90 TAB 3 Refills 04/06/21 Losartan Potassium (LOSARTAN POTASSIUM ) 25 Mg Tablet, 7.5 MG PO DAILY for HYPERTENSION, TAB 04/06/21 Diltiazem Hcl (CARTIA XT) 180 Mg Cap.er.24h, 180 MG PO DAILY08 for ., CAP.SR 04/06/21 Discontinued Reported Medications Insulin Glargine,Hum.rec.anlog (Basaglar Kwikpen U-100) 100 Unit/1 Ml Insuln.pen, 35 UNIT SQ DAILY07 for blood surgar, EACH 04/06/21 PAOLA PAIZ MD May 03, 2021 12:43
[2021-05-03 15:12] VITALS: BP 101/60
--- NOTE | 2021-05-03 16:00 | NUR ---
Discharge Note: [facility] Z[facility] [address] [place] [address] Discharge instructions and discharge home medications reviewed with Other facility and a copy given. All questions have been answered and understanding verbalized. The following instructions and handouts were given: Discharge packet Patient discharged to [facility] with all of pt belongings via facility transport.
--- NOTE | 2021-05-03 22:39 | DS ---
DATE OF DISCHARGE: 05/03/2021 HOSPITAL COURSE: The patient is an 85-year-old female patient who was readmitted to [facility] Emergency Room with generalized weakness, felt to be multifactorial. She was basically found to have tachyarrhythmia and initially thought to be multifocal atrial tachycardia, although initially it was felt to be atrial fibrillation. Her diltiazem was increased to 360 mg. She was also treated with IV diuretics for acute on chronic diastolic congestive heart failure, also started her on steroids for COPD exacerbation and she did actually very well, although her blood sugar was extremely high and required multiple adjustments of her insulin. When I saw her; however, today, she was sitting in her chair, eating her lunch comfortably, in no apparent respiratory distress. On questioning her, denied any complaint. Nursing staff did not voice any concerns, that she had an uneventful night. PHYSICAL EXAMINATION: GENERAL: When I examined her, she was somewhat pale, but no jaundice, no cyanosis, no lymphadenopathy, no thyromegaly, no jugular venous distention. No lower limb edema. VITAL SIGNS: Her heart rate was 76, blood pressure is 107/57, temperature was 97.8, respiratory rate 20, and oxygen saturation was 97%. HEAD, EYES, EARS, NOSE, EYES, EARS, NOSE, AND THROAT: Normocephalic, atraumatic. NECK: Supple. HEART: Showed normal first and second heart sounds, no gallop, rub or murmur. CHEST: Clear to auscultation, no crepitation or rhonchi. ABDOMEN: Distended, soft, nontender. NEUROLOGIC: She is somewhat demented, but without any obvious lateralizing sign. She is able to ambulate with a walker. Her intake over the last 24 hours was 1220, output was 1950. LABORATORY DATA: As of this morning showed a serum sodium 138, potassium 4.4, chloride 102, bicarbonate 30, anion gap of 6, BUN 66, creatinine 1.5. Estimated GFR was 33 mL per minute. Her glucose was 100, calcium was 8.6. Her white cell count was 11,000; hemoglobin 11; hematocrit 34; MCV 87 and platelet count 271,000. Urinalysis essentially unremarkable. DISCHARGE MEDICATIONS: The patient was discharged to [facility] to continue diltiazem 360 mg once a day, prednisone 40 mg once a day, Lantus 30 units at bedtime, montelukast 10 mg at bedtime, atorvastatin 10 mg at bedtime, albuterol sulfate, ipratropium bromide or DuoNeb in 3 mL 3 times a day. She is on triamterene/hydrochlorothiazide 1 tablet once a day, losartan potassium 12.5 mg once a day, apixaban 5 mg twice a day, low dose sliding scale insulin, latanoprost one drop to both eyes twice a day, dorzolamide and timolol one drop to both eyes daily. FINAL DISCHARGE DIAGNOSES: 1. Generalized weakness, multifactorial, resolving. 2. Acute on chronic diastolic congestive heart failure, improving. 3. Tachyarrhythmia, heart rate is much better controlled. 4. Hypertension, also well controlled. 5. Hyperlipidemia. 6. Type 2 diabetes mellitus, much better controlled. 7. Chronic kidney disease. 8. Bronchial asthma/chronic obstructive pulmonary disease exacerbation. 9. Dementia. 10. Right lower extremity deep vein thrombosis, for which she is on Eliquis. JOSUÉ/TAMAR/DEMOND DR: Dia TID: [id number]
== END 2021-05-03 16:00 | DRG 291 ==
LOC: ER 11:07 → 1 SOUTH 19:17
PROVIDERS: ADMIT Internal Medicine; ATTEND Internal Medicine
DX: I13.0 Hypertensive heart and chronic kidney disease with heart failure and stage 1 through stage 4 chronic kidney disease, or unspecified chronic kidney disease (principal); I50.33 Acute on chronic diastolic (congestive) heart failure; E43 Unspecified severe protein-calorie malnutrition; J44.1 Chronic obstructive pulmonary disease with (acute) exacerbation; N17.9 Acute kidney failure, unspecified; D68.59 Other primary thrombophilia; E78.00 Pure hypercholesterolemia, unspecified; I48.0 Paroxysmal atrial fibrillation; N18.9 Chronic kidney disease, unspecified; E11.22 Type 2 diabetes mellitus with diabetic chronic kidney disease; E78.5 Hyperlipidemia, unspecified; F03.90 Unspecified dementia, unspecified severity, without behavioral disturbance, psychotic disturbance, mood disturbance, and anxiety; M19.90 Unspecified osteoarthritis, unspecified site; D72.829 Elevated white blood cell count, unspecified; E88.09 Other disorders of plasma-protein metabolism, not elsewhere classified; Z90.710 Acquired absence of both cervix and uterus; Z86.718 Personal history of other venous thrombosis and embolism; Z82.49 Family history of ischemic heart disease and other diseases of the circulatory system; Z82.3 Family history of stroke; Z79.01 Long term (current) use of anticoagulants; Z88.6 Allergy status to analgesic agent; Z88.0 Allergy status to penicillin; Z68.24 Body mass index [BMI] 24.0-24.9, adult
CPT/HCPCS: 36415; 70450; 71045; 80048; 80053; 81001; 82947; 83605; 83735; 83880; 84100; 84484; 85025; 85027; 85610; 93005; 94640; 94760; J1815; J1940; J2270; J2920; J7512; 97110; 97116; 97530; 99285-25; J7613

== ENCOUNTER 2021-05-26 00:04 | Emergency (ER) | payer MEDICARE ==
[~2021-05-26] VITALS: Ht 160 cm; Wt 66.5 kg
--- NOTE | 2021-05-26 00:29 | PHYS DOC ---
Past History Past Medical History: Arthritis (FANNY YEUNG) Past Surgical History: No Surgical History (FANNY YEUNG) Alcohol Use: None (FANNY YEUNG) General Adult EDM: Chief Complaint: MECHANICAL FALL Problems: (1) Right groin pain (2) Fall from bed (FANNY YEUNG) HPI: HPI: Patient is a 86 year old female with history of diabetes, dementia, paroxysmal A. fib, COPD, hypertension, chronic weakness who presents from [facility] with right-sided groin pain after falling out of bed. Patient states she was getting out of bed to do something, but cannot remember what, when she leaned down and "just kept going." Patient states her pain is 9 out of 10 in the right groin without radiation. She has pain with both flexion and extension of her right lower extremity. She denies any other pain or trauma, dizziness, headache, pelvic pain, dysuria and hematuria. Patient has no other complaints at this time Per paperwork from rehab facility, patient was found on the floor on her right side with her call light in her hand. At that time she had the same complaints as stated above. Reports states she is currently on Eliquis 5 mg twice a day. Their on-call physician gave a verbal order to take her to the emergency department. Her was informed as well. (FANNY YEUNG) Review of Systems: Review of Systems: Constitutional: Denies fever or chills Respiratory: Denies cough or shortness of breath Cardiovascular: Denies chest pain or edema GI: Denies abdominal pain, nausea, vomiting, bloody stools or diarrhea : See HPI Musculoskeletal: See HPI Integument: Denies lacerations, abrasions Neurologic: See HPI Endocrine: Denies polyuria or polydipsia (FANNY YEUNG) Allergies: Allergies: Allergies Coded Allergies Type Severity Reaction Last Updated Verified ibuprofen Allergy Severe Anaphylaxis 04/28/21 Yes Penicillins Allergy Intermediate 04/29/21 Yes (FANNY YEUNG) Physical Exam: PE: Constitutional: Well developed, well nourished, no acute distress, non-toxic appearance. [] HENT: Normocephalic, atraumatic, bilateral external ears normal, nose normal. [] Eyes: PERRLA, EOMI, conjunctiva normal, no discharge. [] Neck: Normal range of motion, no tenderness, supple, no stridor. [] Cardiovascular:Heart rate regular rhythm, no murmur [] Lungs & Thorax: Bilateral breath sounds clear to auscultation [] Abdomen: Protuberant, bowel sounds normal, soft, no tenderness, no masses, no pulsatile masses. [] Skin: Healing rash noted on bilateral lower extremities. Warm, dry. [] Back: No tenderness, no CVA tenderness. [] Extremities: No obvious deformities noted in extremities x4. No tenderness to palpation in extremities x4. Range of motion is limited in right lower extremity at the hip secondary to pain. No cyanosis, no clubbing, no edema. [] Neurologic: Alert and oriented X 3, normal motor function, normal sensory function, no focal deficits noted. [] (FANNY YEUNG) Current Patient Data: Vital Signs: Vital Signs Date Time Temp Pulse Resp B/P (MAP) Pulse Ox O2 Delivery O2 Flow Rate FiO2 05/26/21 00:09 98.0 74 20 116/54 94 Room Air (FANNY YEUNG) EKG: EKG: EKG interpreted by Dr. Obregon: Sinus rhythm rate 74 bpm. Low voltage EKG. No STEMI. (FANNY YEUNG) EKG: My interpretation EKG shows a sinus rhythm 74 bpm. Does have leftward axis changes. Does have anterior septal changes. No findings however acute STEMI with contralateral changes. Time of EKG is 00 20 minutes (HERNAN OBREGON MD) Radiology/Procedures: Radiology/Procedures: [] (FANNY YEUNG) Radiology/Procedures: My interpretation of Pelvis film show a Rt. Hip Femur neck fracture. My interpretaiton of CXR - shows no consolidated infiltrates. No pneumothorax. No pleural effusion. Does have some cardiomegaly. There is atherosclerotic calcifications of aorta. Arthritic changes of the shoulders. See formal reports for hip and chest x-ray when available. (HERNAN OBREGON MD) Heart Score: C/O Chest Pain: No (FANNY YEUNG) Course & Med Decision Making: Course & Med Decision Making Pertinent Labs and Imaging studies reviewed. (See chart for details) While still awaiting labs and imaging results, care was transferred to Dr. Obregon at 01:00. (FANNY YEUNG) Course & Med Decision Making See SRIKANTH Yeung notes for details prior shift change. Discussed presentation, testing and tx. plan with Dr. Patterson- Hospitalist [facility]. Will accept pt in transfer. 0140 Discussed presentation, testing and tx. plan with Dr. Gabriel -tanika will consult on pt. 0153 hrs. Impression: 1. Trip and Fall 2. Right hip fracture 3. Anemia Hgb 10.4 4. Elevated BUN 24/Creat 1.3- Renal Insuf./Chronic Renal Dz- Stage IV 5. DM = glucose 195 6. Hx. Afib 7. Hx. Asthma 8. Hx. COPD 9. Hx Peripheral Neuropathy 10. Hx. Dementia with Behavioral Disturbance 11. Hx. of DVT 12. On Eliquis 5 bid (HERNAN OBREGON MD) Dragon Disclaimer: Dragon Disclaimer: This electronic medical record was generated, in whole or in part, using a voice recognition dictation system. (FANNY YEUNG) Departure Departure: Referrals: LITA PIMENTEL MD (PCP) Attending Signature Attending Signature I have participated in the care of this patient and I have reviewed and agree with all pertinent clinical information above including history, exam, and recommendations. (HERNAN OBREGON MD) Dragon Disclaimer This chart was dictated in whole or in part using Voice Recognition software in a busy, high-work load, and often noisy Emergency Department environment. It may contain unintended and wholly unrecognized errors or omissions. (HERNAN OBREGON MD) Dragon Disclaimer This chart was dictated in whole or in part using Voice Recognition software in a busy, high-work load, and often noisy Emergency Department environment. It may contain unintended and wholly unrecognized errors or omissions. (HERNAN OBREGON MD) FANNY YEUNG May 26, 2021 00:29 HERNAN OBREGON MD May 26, 2021 01:33
[2021-05-26 00:49] LABS: BASO % 1 % (0-3); EOS # 0.3 x10^3/uL (0.0-0.7); EOS % 7 % (0-3); HEMATOCRIT 31.5 % (36.0-47.0); HEMOGLOBIN 10.4 g/dL (12.0-15.5); LYMPH # 1.3 x10^3/uL (1.0-4.8); LYMPH % 29 % (24-48); MEAN CORPUSCULAR HEMOGLOBIN 29 pg (25-35); MEAN CORPUSCULAR HGB CONC 33 g/dL (31-37); MEAN CORPUSCULAR VOLUME 88 fL (79-100); MONO # 0.7 x10^3/uL (0.0-1.1); MONO % 15 % (0-9); NEUT # 2.3 x10^3uL (1.8-7.7); NEUT % 48 % (31-73); PLATELET COUNT 221 x10^3/uL (140-400); RED CELL DISTRIBUTION WIDTH 16.4 % (11.5-14.5); WHITE BLOOD COUNT 4.7 x10^3/uL (4.0-11.0)
[2021-05-26 00:57] LABS: CALCIUM 8.3 mg/dL (8.5-10.1); CREATININE 1.5 mg/dL (0.6-1.0); GFR 32.9; POTASSIUM 3.7 mmol/L (3.5-5.1)
--- NOTE | 2021-05-26 00:59 | EKG ---
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
[2021-05-26] MEDS ORDERED: MORPHINE SULFATE 2 MG/ML DISP.SYRIN. IV ONE (01:00)
[2021-05-26] MEDS ORDERED: MORPHINE SULFATE 10 MG/ML SYRINGE. SQ ONE (01:30)
[2021-05-26] MEDS ORDERED: IV RINGERS SOLUTION,LACTATED 1,000 ML IV ONE (01:30)
[2021-05-26 01:36] LABS: BILIRUBIN,URINE NEG (NEG); CLARITY,URINE HAZY; COLOR,URINE YELLOW; GLUCOSE,URINE NEG (NEG); NITRITE,URINE NEG (NEG); UROBILINOGEN,URINE 0.2 mg/dL (0.2 mg/dL)
[2021-05-26 01:38] LABS: BACTERIA,URINE MANY /HPF (0-FEW)
[2021-05-26 02:09] VITALS: BP 116/45
--- NOTE | 2021-05-26 06:56 | RAD ---
Pelvis and right hip: Reason for examination: Fell out of bed with right hip pain. Single view the pelvis shows no acute bony abnormality in the sacrum, iliac wings or superior-inferio r pubic rami. Proximal left femur is intact. The right proximal femur shows a femoral neck fracture w ith minimal displacement. 2 views of the right hip again show a right femoral neck fracture with minimal displacement. Hip join t is maintained. No abnormal periosteal reaction is seen. The bone density is normal. IMPRESSION: Fracture at the right femoral neck with minimal displacement. Electronically signed by: Althea Barr MD (05/26/2021 6:54 AM) [facility]
== END 2021-05-26 02:56 | disposition short-term general hospital (02) ==
LOC: ER 00:04
DX: S72.001A Fracture of unspecified part of neck of right femur, initial encounter for closed fracture (principal); E11.9 Type 2 diabetes mellitus without complications; D64.9 Anemia, unspecified; R94.4 Abnormal results of kidney function studies; J44.9 Chronic obstructive pulmonary disease, unspecified; G62.9 Polyneuropathy, unspecified; Z20.822 Contact with and (suspected) exposure to COVID-19; W01.0XXA Fall on same level from slipping, tripping and stumbling without subsequent striking against object, initial encounter; Y93.89 Activity, other specified; Y92.89 Other specified places as the place of occurrence of the external cause; Y99.8 Other external cause status
CPT/HCPCS: 36415; 71045; 73502; 80048; 81001; 83880; 84484; 85025; 87086; 87426; 93005; 96361; 96372; 96374; 99285; C9803; J2270; J7120; U0003

== ENCOUNTER 2021-06-06 20:54 | Inpatient (IN) | payer MEDICARE ==
[~2021-06-06] VITALS: Ht 161.3 cm; Wt 68.3 kg
--- NOTE | 2021-06-06 21:29 | PHYS DOC ---
Past History Past Medical History: Arthritis (DONNA MA APRN) Past Surgical History: No Surgical History (DONNA MA APRN) Alcohol Use: None (DONNA MA APRN) General Adult EDM: Chief Complaint: HIP PAIN HPI: HPI: Patient is an 86-year-old female presents to the ER via EMS from assisted nursing facility for pain to her coccyx. Patient has stage I pressure ulcer. Dressings are being placed at the assisted usp. Patient denies any falls or injuries, fevers. Patient is alert and oriented to person place and situation which is her baseline. Patient has a history of dementia. (DONNA MA APRN) Review of Systems: Review of Systems: 14 body systems of the review of systems have been reviewed. See HPI for pertinent positive and negative responses, otherwise all other systems are negative, nonpertinent or noncontributory (DONNA MA APRN) Allergies: Allergies: Allergies Coded Allergies Type Severity Reaction Last Updated Verified ibuprofen Allergy Severe Anaphylaxis 04/28/21 Yes Penicillins Allergy Intermediate 04/29/21 Yes (DONNA MA APRN) Physical Exam: PE: Constitutional: Well developed, well nourished, no acute distress, non-toxic appearance. [] HENT: Normocephalic, atraumatic, bilateral external ears normal, oropharynx moist, no oral exudates, nose normal. [] Eyes: PERRL, EOMI, conjunctiva normal, no discharge. [] Neck: Normal range of motion, no tenderness, supple, no stridor. [] Cardiovascular:Heart rate regular rhythm, no murmur [] Lungs & Thorax: Bilateral breath sounds clear to auscultation [] Abdomen: Bowel sounds normal, soft, no tenderness, no masses, no pulsatile masses. [] Skin: Warm, dry, no rash, stage I pressure ulcer to patient's coccyx Back: No tenderness, normal range of motion Extremities: No tenderness, no cyanosis, no clubbing, ROM intact, no edema, no shortening or rotation, no bony point tenderness of hips or lower extremities. [] Neurologic: Alert and oriented X 3, normal motor function, normal sensory function, no focal deficits noted. [] Psychologic: Affect normal, judgement normal, mood normal. [] (DONNA MA APRN) EKG: EKG: [] (DONNA MA APRN) Radiology/Procedures: Radiology/Procedures: [] (DONNA MA APRN) Heart Score: C/O Chest Pain: No Risk Factors: Risk Factors: DM, Current or recent (<one month) smoker, HTN, HLP, family history of CAD, obesity. Risk Scores: Score 0 - 3: 2.5% MACE over next 6 weeks - Discharge Home Score 4 - 6: 20.3% MACE over next 6 weeks - Admit for Clinical Observation Score 7 - 10: 72.7% MACE over next 6 weeks - Early Invasive Strategies (DONNA MA APRN) Course & Med Decision Making: Course & Med Decision Making Pertinent Labs and Imaging studies reviewed. (See chart for details) [] Patient is an 86-year-old female being seen in the ER for pain to her coccyx from a pressure ulcer. A CT of her pelvis and hip was performed. CBC and CMP performed in the ER. Patient's vital signs are stable and she is in no acute distress. Wound care provided for patient and dressing change. 2203: I discussed patients case with Dr. Jose and he will assume patient care at this time. Lab work/imaging pending. (DONNA MA APRN) Course & Med Decision Making Patient care handed off to me at checkout. Patient 86 years old with dementia, and a recently repaired right femoral neck fracture but was internally fixed and stable. Chest CT with no pulmonary embolism but does have consolidative pneumo whitney. Patient kept on the monitor with IV fluid resuscitation and started on antibiotics. Pain controlled. Given patient's age, dementia and coming from a usp with recent fall we felt it best to admit her here to [facility] for continued evaluation and treatment until more stable for discharge back to usp. (KIMO JOSE MD) Dragon Disclaimer: Dragon Disclaimer: This electronic medical record was generated, in whole or in part, using a voice recognition dictation system. (DONNA MA APRN) Departure Departure: Impression: Primary Impression: Fall from bed Additional Impressions: Pneumonia Dementia Disposition: ADMITTED INPATIENT Admitting Physician: Mikhail Delgadillo (KIMO JOSE MD) Condition: STABLE Referrals: LITA PIMENTEL MD (PCP) DONNA MA APRN Jun 06, 2021 21:29 KIMO JOSE MD Jun 07, 2021 00:43
[2021-06-06] MEDS ORDERED: IOHEXOL 300 MG/ML 75 ML VIAL. IV ONE (21:45)
[2021-06-06] MEDS ORDERED: HYDROcodone/APAP 5/325MG 1 TAB TABLET PO ONE (22:00)
[2021-06-06] MEDS ORDERED: CONTRAST GIVEN. MC PRN ×2 (22:00→23:00)
[2021-06-06 22:11] LABS: BASO # 0.1 x10^3/uL (0.0-0.2); BASO % 1 % (0-3); EOS # 0.3 x10^3/uL (0.0-0.7); EOS % 3 % (0-3); HEMATOCRIT 30.6 % (36.0-47.0); HEMOGLOBIN 10.1 g/dL (12.0-15.5); LYMPH # 2.4 x10^3/uL (1.0-4.8); LYMPH % 24 % (24-48); MEAN CORPUSCULAR HEMOGLOBIN 29 pg (25-35); MEAN CORPUSCULAR HGB CONC 33 g/dL (31-37); MEAN CORPUSCULAR VOLUME 87 fL (79-100); MONO # 1.3 x10^3/uL (0.0-1.1); MONO % 14 % (0-9); NEUT # 5.7 x10^3uL (1.8-7.7); NEUT % 58 % (31-73); PLATELET COUNT 490 x10^3/uL (140-400); RED BLOOD COUNT 3.52 x10^6/uL (3.50-5.40); RED CELL DISTRIBUTION WIDTH 17.2 % (11.5-14.5); WHITE BLOOD COUNT 9.8 x10^3/uL (4.0-11.0)
[2021-06-06] MEDS ORDERED: ACETAMINOPHEN 500 MG TABLET PO ONE (22:45)
[2021-06-06] MEDS ORDERED: IOHEXOL 350 MG/ML 100 ML VIAL. IV ONE (22:45)
[2021-06-06] MEDS ORDERED: MORPHINE SULFATE 4 MG/ML DISP.SYRIN. IV ONE (22:45)
[2021-06-06 23:50] LABS: CALCIUM 8.3 mg/dL (8.5-10.1); CREATININE 1.4 mg/dL (0.6-1.0); GFR 35.7; POTASSIUM 3.6 mmol/L (3.5-5.1)
[2021-06-06 23:55] LABS: ALBUMIN 2.1 g/dL (3.4-5.0); ALBUMIN/GLOBULIN RATIO 0.6 (1.0-1.7); TOTAL BILIRUBIN 0.2 mg/dL (0.2-1.0); TOTAL PROTEIN 5.7 g/dL (6.4-8.2)
--- NOTE | 2021-06-06 23:59 | RAD ---
Study: CT CHEST WITH CONTRAST - PULMONARY ANGIOGRAM History: Hypoxia. Recent fracture. Pulmonary embolism. Comparison: CT chest without contrast 04/01/2021 Technique: Helical CT of the chest performed after the administration of 75 cc Omnipaque 350 intrave nous contrast and timed for angiographic evaluation of the pulmonary arteries per PE protocol. Callahan l and sagittal 3D MIP reformations were obtained. One or more of the following individualized dose reduction techniques were utilized for this examinat ion: 1. Automated exposure control 2. Adjustment of the mA and/or kV according to patient size 3. Use of iterative reconstruction technique. Findings: Pulmonary Arteries: No definitive main, lobar or segmental pulmonary embolism noting that the pulmona ry arteries to the inferomedial right middle lobe are difficult to evaluate. Main pulmonary artery ca liber is within normal limits at under 3 cm transverse. Heart/Systemic Vasculature: Extensive calcific atherosclerosis with severe trivessel coronary artery involvement. No aortic aneurysm or definitive dissection considering bolus timing. Mediastinum: A few mildly enlarged mediastinal lymph nodes such as pretracheal on image 40 series 4 m easuring 1 cm short axis. Lungs: Consolidative opacities at the right lung apex. More mild nodular infiltrates at a few additio nal locations. Small pleural effusion on the right and a trace amount of pleural fluid on the left. S cattered atelectasis. Interlobular septal prominence at the apices. Bronchial wall thickening and int ermittent small airway opacification at the left lower lobe. Neck/Axilla/Body Wall: Unchanged right thyroid lobe nodules. No axillary adenopathy. Mild body wall e joceline best seen below the diaphragm. Upper Abdomen: Numerous calcified gallstones. Colonic diverticuli. At least mild constipation. Bones: Osteopenia. Advanced arthrosis at the right shoulder. Less pronounced arthrosis on the left. M ultilevel spondylosis. No change in vertebral body height. Miscellaneous: None. IMPRESSION: 1. No main, lobar or segmental pulmonary embolism. 2. Consolidative opacities at the right upper lobe and scattered nodular infiltrates elsewhere. Smal l right and trace left pleural effusions. The findings suggest pneumonia on a background of congestiv e heart failure/volume overload. A few mildly prominent mediastinal lymph nodes are favored reactive. Consider follow-up to confirm resolution of the nodules such as in 3-6 months. 3. Severe calcific atherosclerosis to include trivessel coronary artery involvement. 4. Additional chronic observations to include numerous calcified gallstones as outlined in the body of the report. Electronically signed by: MORRO SHIELDS MD (06/06/2021 11:57 PM) [facility]
--- NOTE | 2021-06-07 00:09 | RAD ---
EXAM: CT pelvis with contrast. HISTORY: Low back and hip wound. TECHNIQUE: CT of the pelvis was performed after the intravenous administration of iodinated contrast. One or more of the following individualized dose reduction techniques were utilized for this examina tion: 1. Automated exposure control. 2. Adjustment of the mA and/or kV according to patient size. 3. Use of iterative reconstruction technique. COMPARISON: 05/26/2021. FINDINGS: Cholelithiasis is noted. A benign-appearing cyst at the right renal lower pole measures 4.0 cm. Sigmoid and left colonic diverticulosis is severe. There is no small bowel obstruction. The uter us is surgically absent. Subcutaneous edema dependently may reflect cellulitis or simply dependent edema. There are changes of recent internal fixation of a right femoral neck fracture. This remains in near-anatomic alignment. Skin yisel remain in place along the right hip. There is no underlying hematoma or collection. No new fractures identified. There are moderate to severe degenerative changes within the lower lumba r spine. There is mild joint space narrowing at both hips. IMPRESSION: 1. Internal fixation of a right femoral neck fracture in expected alignment. 2. No deep ulcer or drainable collection. Correlate for the site of concern. 3. Cholelithiasis. Electronically signed by: Cynthia Angulo MD (06/07/2021 12:07 AM) [facility]
[2021-06-07] MEDS ORDERED: MIDAZOLAM HCL PF 5 MG/5 ML VIAL. IV ONE ×2 (00:30→01:45)
[2021-06-07] MEDS: MORPHINE SULFATE 2 MG/ML DISP.SYRIN. IVP PRN ×5 (02:26→21:14)
[2021-06-07] MEDS ORDERED: IPRATRPIUM/ALBUTEROL 0.5/2.5MG 3 ML NEBU. NEB ONE ×2 (07:45→13:00)
[2021-06-07] MEDS ORDERED: NYSTATIN TOPICAL POWDER 15GM BOTTLE. TP ONE (10:45)
[2021-06-07] MEDS ORDERED: diphenhydrAMINE HCL 25 MG CAPSULE PO ONE (10:45)
[2021-06-07 11:43] LABS: BILIRUBIN,URINE NEG (NEG); CLARITY,URINE CLEAR; COLOR,URINE YELLOW; GLUCOSE,URINE NEG (NEG)
[2021-06-07 11:44] LABS: BACTERIA,URINE 0 /HPF (0-FEW); NITRITE,URINE NEG (NEG); SQUAMOUS EPITHELIAL CELL,UR MOD /LPF; UROBILINOGEN,URINE 0.2 mg/dL (0.2 mg/dL)
[2021-06-07] MEDS ORDERED: ACETAMINOPHEN 325 MG TABLET PO ONE (13:00)
--- NOTE | 2021-06-07 16:23 | EKG ---
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
--- NOTE | 2021-06-07 16:41 | HP ---
ADMIT DATE: 06/06/2021 ATTENDING PHYSICIAN: Dr. Delgadillo. CHIEF COMPLAINT: Pain in the coccyx and shortness of breath. HISTORY OF PRESENT ILLNESS: The patient is an 86-year-old female from [facility]. She has profound dementia. She was admitted from the ED with increasing pain to her coccyx, no recent falls. She had extensive workup. CT scan showed bilateral infiltrates consistent with group home acquired pneumonia. She was to be admitted to the hospitalist service. She has been in the ER all night. The family initially requested that she return back to [place] for IV antibiotics there, Dr. Lugo was notified. He declined and felt that it would be better off with the patient admitted to the hospital. She was admitted then for community-acquired pneumonia, one dose of Rocephin was given. We will continue other home meds. PAST MEDICAL HISTORY: Significant for: 1. Profound dementia. 2. Recent fall with hip fracture, being hospitalized at [place] for ORIF, generalized weakness that is multifactorial. 3. Acute on chronic congestive heart failure, diastolic. 4. Tachyarrhythmias. 5. Essential hypertension. 6. Type 2 diabetes. 7. Chronic kidney disease. 8. History of right lower leg DVT, on chronic anticoagulation. CURRENT MEDICATIONS: Reviewed. She was scheduled to take albuterol, Eliquis 5 mg b.i.d., diltiazem 180 daily, dorzolamide eyedrops, Xalatan eyedrops, losartan, pravastatin and triamterene/hydrochlorothiazide. ALLERGIES: SHE HAS ALLERGIES TO PENICILLIN AND IBUPROFEN, EXACT REACTION IS UNCLEAR. SOCIAL HISTORY: She is a nonsmoker, nondrinker. FAMILY HISTORY: Unobtainable. REVIEW OF SYSTEMS: Unobtainable due to the patient's confusion. PHYSICAL EXAMINATION: GENERAL: When I saw her, this is a pleasant elderly female who was not alert to what is going on. INITIAL VITAL SIGNS: Showed that she was afebrile, pulse is 80 and regular, BP 126/52, oxygen saturation 97% on 1 liter by nasal cannula. HEENT: Head is without trauma. Pupils are reactive. Sclerae nonicteric. Oropharynx is clear. NECK: Supple, no bruits. LUNGS: Shallow respirations. CARDIOVASCULAR SYSTEM: Showed regular heart tones. No gallops. ABDOMEN: Soft. No guarding. EXTREMITIES: Show trace edema. NEUROLOGIC FUNCTION: Focally intact. Speech is fluent. The patient is minimally speaking, but responds to some commands. She is nonambulatory at this time. PERTINENT LABORATORY AND X-RAY STUDIES: The CT of the chest as noted. Hemoglobin is 10.1 g/dL with a white count of 9800. Her electrolytes are within range. Creatinine is 1.4 mg percent. Nonfasting blood sugar 154. ASSESSMENT: 1. This 86-year-old female has respiratory distress consistent with pneumonia, group home acquired. 2. Acute on chronic diastolic heart failure. 3. Localized pain to the coccyx without any recent falls. 4. Recent fall with hip fracture, requiring open reduction and internal fixation. 5. Essential hypertension. 6. Type 2 diabetes. 7. Chronic kidney disease. 8. Profound dementia. 9. History of right lower extremity deep venous thrombosis, on chronic anticoagulation. PLAN: 1. Admit to the inpatient unit. 2. Intravenous antibiotics. 3. Home medications continued. 4. She remains a FULL CODE per advanced directives. Her prognosis is poor. ALESHIA DR: Will TID: [id number] CC: LITA PIMENTEL MD
[2021-06-07 18:01] VITALS: BP 148/81
--- NOTE | 2021-06-07 18:39 | NUR ---
ADMISSION Pt admitted to [facility] bed [address] Delgadillo for Dementia, PNA and falls. VSS and resting in bed comfortably at this time. Will pass rest of admission to oncoming shift. CC, RN
[2021-06-07 20:00] VITALS: BP 125/71
[2021-06-07] MEDS: ALBUTEROL SULFATE 2.5 MG/3 ML NEBU. NEB PRN (22:46)
[2021-06-07 23:56] VITALS: BP 127/75
[2021-06-08] MEDS: ALBUTEROL SULFATE 2.5 MG/3 ML NEBU. NEB PRN ×2 (05:31→20:10)
[2021-06-08 05:44] VITALS: BP 116/70
--- NOTE | 2021-06-08 05:57 | NUR ---
PT YELLING OUT TO NURSING STATION MOST OF NIGHT. PT STATED MULTIPLE TIMES IN THE NIGHT THAT SHE NEEDED TO URINATE AND THAT SHE FELT IF SHE COULDN'T BREATH. UPON FURTHER ASSESSMENT PTS BLADDER APPEARED TO BE DISTENDED. BLADDER SCANNER OBTAINED. OVER 999ML OF URINE WAS FOUND IN BLADDER. 16F SMITH PLACED W/ MINIMAL DISCOMFORT. 1200 ML OF URINE COLLECTED FROM SMITH IMMEDIATELY FOLLOWING PLACEMENT. PT THEN HAD FURTHER COMPLAINTS OF SOA. EDUCATION WAS THEN GIVEN TO PT ON HOW TO PROPERLY USE NC TO RECEIVE ADEQUATE OXYGEN. PT WAS UNABLE TO RETURN DEMONSTRATION. OXYGEN SATURATION WAS THEN CHECKED AND PT WAS SITTING AT 86%. PT WAS THEN GIVEN PRN BREATHING TREATMENT W/ OXYGEN SATURATION ONLY INCREASING TO 88%. RT WAS THEN CONSULTED. PT IS NOW SITTING AT 93% W/ VENTURI MASK AT 30%. PT IS NON COMPLAINT W/ MASK AND EDUCATION IS REINFORCED ON IMPORTANCE OF WEARING VENTURI MASK.
[2021-06-08] MEDS ORDERED: HYDR-2155 PO (06:33)
[2021-06-08] MEDS ORDERED: MONT10TA80 PO (06:33)
[2021-06-08] MEDS ORDERED: ATOR10TA60 PO (06:33)
[2021-06-08] MEDS ORDERED: LORA-254 PO (06:33)
[2021-06-08] MEDS ORDERED: DOCU-109 PO (06:33)
[2021-06-08] MEDS ORDERED: INSU100I13 SQ (06:33)
[2021-06-08 08:10] VITALS: BP 134/80
[2021-06-08] MEDS ORDERED: LORazepam 1 MG TABLET PO SCH (09:00)
[2021-06-08 10:40] VITALS: BP 117/72
[2021-06-08 15:06] VITALS: BP 121/71
--- NOTE | 2021-06-08 15:19 | PN ---
DATE: 06/08/2021 ATTENDING PHYSICIAN: Dr. Delgadillo. SUBJECTIVE: The patient is alert. She is comfortable. She is very bright. She remembered my name. This is a good day for her. This is the best mentally I had seen her in the last several months. OBJECTIVE FINDINGS: VITAL SIGNS: Blood pressure is 134/80 mmHg, pulse 88 and regular, temperature 99.1 degrees Fahrenheit, oxygen saturation 96% on 2 liters. HEENT: Head is without trauma. Pupils are reactive. Sclerae nonicteric. Oropharynx clear. NECK: Supple. LUNGS: Diminished breath sounds at bases. CARDIOVASCULAR: Showed regular heart tones. No gallops. ABDOMEN: Soft. EXTREMITIES: Without edema. NEUROLOGIC: Function focally intact. Speech is fluent. SKIN: Warm and dry. PSYCHIATRIC: Affect is normal. LABORATORY DATA: Hemoglobin on admission was 10.1 g/dL. Electrolytes within range. Creatinine 1.4 mg percent. Nonfasting blood sugar this morning was 165 mg/dL. A CT scan of the chest as noted. ASSESSMENT: 1. An 86-year-old female with respiratory distress consistent with pneumonia, half-way acquired. 2. Acute on chronic diastolic congestive heart failure, compensated. 3. Localized pain to the coccyx without any recent falls. 4. Recent hip fracture with open reduction and internal fixation. 5. Essential hypertension. 6. Type 2 diabetes. 7. Profound dementia. 8. Chronic kidney disease stage III. 9. History of right lower leg deep venous thrombosis, on chronic anticoagulation. PLAN: 1. Continue home medications were ordered. 2. Antibiotics. 3. Follow up x-ray later this week. BRIAN DR: Will TID: [id number] CC: LITA PIMENTEL MD
[2021-06-08] MEDS: LATANOPROST 0.005% OPHTH SOLUTION 2.5ML BOTTLE. OU SCH (18:00)
[2021-06-08 19:26] VITALS: BP 126/62
[2021-06-08] MEDS: ATORVASTATIN CALCIUM 10 MG TABLET. PO SCH (20:10)
[2021-06-08] MEDS: MONTELUKAST 10 MG TABLET. PO SCH (20:10)
[2021-06-08] MEDS: APIXABAN 5 MG TABLET. PO SCH (20:10)
[2021-06-08] MEDS: LORazepam 1 MG TABLET PO PRN (20:10)
[2021-06-08] MEDS: INSULIN GLARGINE SYRINGE. SQ SCH (20:12)
[2021-06-09] MEDS: LATANOPROST 0.005% OPHTH SOLUTION 2.5ML BOTTLE. OU SCH ×2 (07:00→18:00)
[2021-06-09] MEDS: DORZOLAMIDE/TIMOLOL 2%/0.5% OPHTH SOLUTION 10ML BOTTLE. OD SCH (08:39)
[2021-06-09] MEDS: APIXABAN 5 MG TABLET. PO SCH ×2 (08:39→20:05)
[2021-06-09 08:42] VITALS: BP 114/64
[2021-06-09] MEDS: LOSARTAN 25 MG TABLET. PO SCH (08:43)
[2021-06-09 08:48] VITALS: BP 114/64
[2021-06-09] MEDS: LORazepam 1 MG TABLET PO PRN ×2 (11:45→20:05)
[2021-06-09 12:01] VITALS: BP 109/58
[2021-06-09 15:56] VITALS: BP 87/47
[2021-06-09 16:08] VITALS: BP 104/64
--- NOTE | 2021-06-09 16:47 | RAD ---
EXAMINATION: Chest radiograph. VIEWS: Single AP view the chest COMPARISON: CT from 06/05/2021 05/26/2021 INDICATION:86 years, Female, pneumonia. FINDINGS: Stable mild cardiomegaly. Increased central pulmonary vascular congestion. Tortuous thoracic aorta wi th calcifications of the aortic arch. Increased interstitial markings and scattered, patchy lower lob e predominant hazy opacities. No pneumothorax. There is mild blunting of the right costophrenic angle . Small right pleural effusion. No sizable left pleural effusion. IMPRESSION: Findings suggestive of interstitial pulmonary edema with possible superimposed multifocal pneumonia. Electronically signed by: Kael Sandhu DO (06/09/2021 4:45 PM) [id number]
[2021-06-09] MEDS: MONTELUKAST 10 MG TABLET. PO SCH (20:04)
[2021-06-09] MEDS: ATORVASTATIN CALCIUM 10 MG TABLET. PO SCH (20:04)
[2021-06-09 20:33] VITALS: BP 106/71
[2021-06-09] MEDS: INSULIN GLARGINE SYRINGE. SQ SCH (20:53)
[2021-06-09] MEDS: ALBUTEROL SULFATE 2.5 MG/3 ML NEBU. NEB PRN (20:55)
--- NOTE | 2021-06-09 21:35 | PN ---
DATE: 06/09/2021 ATTENDING PHYSICIAN: Mikhail Delgadillo MD SUBJECTIVE: The patient is calm. She does not feel well. She is pleasantly confused. She has got a little bit of wheezing, but this is a chronic problem. She has had this problem before. OBJECTIVE FINDINGS: VITAL SIGNS: Blood pressure this morning is 109/58. She is afebrile, heart rate ranging between 100 and 120, irregular. Oxygen saturation 95% on 4 liters. HEENT: Head is without trauma. Pupils are reactive. Sclerae nonicteric. Oropharynx is clear. NECK: Supple, no bruits. LUNGS: Diffuse wheezing in the upper airways. CARDIOVASCULAR: Showed tachycardic irregular rhythm. No gallops. ABDOMEN: Soft. EXTREMITIES: Without edema. NEUROLOGIC: Finally, focally intact. She is pleasantly confused. ASSESSMENT: 1. An 86-year-old female with respiratory distress consistent with pneumonia, snf acquired. 2. Acute on chronic diastolic heart failure, compensated. 3. Localized back pain, improved. 4. Recent hip fracture with open reduction internal fixation. 5. Essential hypertension. 6. Paroxysmal atrial fibrillation. 7. Type 2 diabetes. 8. Profound dementia. 9. Chronic kidney disease. 10. History of right leg deep venous thrombosis, on chronic anticoagulation. PLAN: 1. I reviewed her medicine. She will continue her Levaquin daily. 2. Diet as tolerated. 3. Follow up chest x-ray tomorrow morning. 4. Monitoring blood pressure and heart rate. SHERI/EFRAIN DR: SHERI/anatoly TID: [id number] CC: LITA PIMENTEL MD
[2021-06-10] MEDS: LATANOPROST 0.005% OPHTH SOLUTION 2.5ML BOTTLE. OU SCH ×2 (07:00→18:00)
[2021-06-10] MEDS: APIXABAN 5 MG TABLET. PO SCH ×2 (08:50→20:03)
[2021-06-10] MEDS: DORZOLAMIDE/TIMOLOL 2%/0.5% OPHTH SOLUTION 10ML BOTTLE. OD SCH (08:50)
[2021-06-10] MEDS: LACTOBACILLUS RHAMNOSUS GG 1 CAPSULE. PO SCH ×2 (08:50→20:02)
[2021-06-10] MEDS: LOSARTAN 25 MG TABLET. PO SCH (09:00)
--- NOTE | 2021-06-10 09:03 | PDOC2 ---
CARDIAC CONSULT DATE OF CONSULT DOS: DATE: 06/10/21 TIME: 08:47 REASON FOR CONSULT Reason for Consult tachycardia REFERRING PHYSICIAN Referring Physician Dr. Lugo SOURCE Source: Chart review, Patient HPI History of Present Illness This is an 86 yo female who presented from nursing facility secondary coccyx pain, pressure ulcer. Has a history of MAT. Was noted to be slightly tachycardic, which prompted this consult. Patient presently complains of shortness of breath. CXR with evidence of CHF. Denies any chest pain, palpitations, dizziness. PAST MEDICAL HISTORY Past Medical History Cardiovascular: AFIB, hyperipidemia Pulmonary: Asthma CENTRAL NERVOUS SYSTEM: Dementia Heme/Onc: Other (DVT) Musculoskeletal: Osteoarthritis Renal/: Chronic renal insuff Endocrine: Diabetes PAST SURGICAL HISTORY Past Surgical History: Hysterectomy FAMILY HISTORY Family History: Family History Unknown SOCIAL HISTORY Social History Smoke: No ALCOHOL: none Drugs: None Lives: nursing facility CURRENT MEDICATIONS Current Medications Current Medications Iohexol (Omnipaque 300 Mg/ml) 60 ml 1X ONCE IV Last administered on 06/06/21at 22:32; Start 06/06/21 at 21:45; Stop 06/06/21 at 21:48; Status DC Acetaminophen/ Hydrocodone Bitart (Lortab 5/325) 1 tab 1X ONCE PO Last administered on 06/06/21at 21:59; Start 06/06/21 at 22:00; Stop 06/06/21 at 22:01; Status DC Info (Do NOT chart on this entry -- for MONITORING) 1 each PRN DAILY PRN MC SEE COMMENTS; Start 06/06/21 at 22:00; Stop 06/08/21 at 21:59; Status Cancel Morphine Sulfate (Morphine 4mg Syringe) 2 mg 1X ONCE IV Last administered on 06/06/21at 22:45; Start 06/06/21 at 22:45; Stop 06/06/21 at 22:46; Status DC Acetaminophen (Tylenol) 1,000 mg 1X ONCE PO Last administered on 06/06/21at 22:45; Start 06/06/21 at 22:45; Stop 06/06/21 at 22:46; Status DC Iohexol (Omnipaque 350 Mg/ml) 75 ml 1X ONCE IV Last administered on 06/06/21at 22:47; Start 06/06/21 at 22:45; Stop 06/06/21 at 22:46; Status DC Info (Do NOT chart on this entry -- for MONITORING) 1 each PRN DAILY PRN MC SEE COMMENTS; Start 06/06/21 at 23:00; Stop 06/08/21 at 22:59; Status DC Midazolam HCl (Versed) 2 mg 1X ONCE IV Last administered on 06/07/21at 00:31; Start 06/07/21 at 00:30; Stop 06/07/21 at 00:31; Status DC Levofloxacin/ Dextrose 150 ml @ 100 mls/hr 1X ONCE IV Last administered on 06/07/21at 02:42; Start 06/07/21 at 00:45; Stop 06/07/21 at 02:14; Status DC Morphine Sulfate (Morphine 2mg Syringe) 2 mg PRN Q2HR PRN IVP PAIN Last administered on 06/07/21at 21:14; Start 06/07/21 at 00:45; Stop 06/08/21 at 00:44; Status DC Midazolam HCl (Versed) 2 mg 1X ONCE IV Last administered on 06/07/21at 02:42; Start 06/07/21 at 01:45; Stop 06/07/21 at 01:46; Status DC Albuterol/ Ipratropium (Duoneb) 3 ml 1X ONCE NEB Last administered on 06/07/21at 07:50; Start 06/07/21 at 07:45; Stop 06/07/21 at 07:46; Status DC Diphenhydramine HCl (Benadryl) 25 mg 1X ONCE PO Last administered on 06/07/21at 10:50; Start 06/07/21 at 10:45; Stop 06/07/21 at 10:46; Status DC Nystatin (Nystop) 1 serena 1X ONCE TP Last administered on 06/07/21at 11:08; Start 06/07/21 at 10:45; Stop 06/07/21 at 10:46; Status DC Acetaminophen (Tylenol) 650 mg 1X ONCE PO Last administered on 06/07/21at 13:17; Start 06/07/21 at 13:00; Stop 06/07/21 at 13:02; Status DC Albuterol/ Ipratropium (Duoneb) 3 ml 1X ONCE NEB Last administered on 06/07/21at 13:29; Start 06/07/21 at 13:00; Stop 06/07/21 at 13:02; Status DC Albuterol Sulfate (Ventolin) 2.5 mg PRN Q6HRS PRN NEB SHORTNESS OF BREATH Last administered on 06/09/21at 20:55; Start 06/07/21 at 22:45 Lorazepam (Ativan) 1 mg DAILY PO Last administered on 06/08/21at 11:24; Start 06/08/21 at 09:00; Stop 06/08/21 at 11:39; Status DC Apixaban (Eliquis) 5 mg BID PO Last administered on 06/09/21at 20:05; Start 06/08/21 at 21:00 Atorvastatin Calcium (Lipitor) 10 mg QHS PO Last administered on 06/09/21at 20:04; Start 06/08/21 at 21:00 Diltiazem HCl (Cardizem 24hr Cd) 180 mg DAILY08 PO Last administered on 06/09/21at 08:44; Start 06/08/21 at 11:30 Dorzolamide/ Timolol (Cosopt) 1 drop DAILY07 OD Last administered on 06/09/21at 08:39; Start 06/09/21 at 07:00 Latanoprost (Xalatan) 1 drop [id number] OU ; Start 06/08/21 at 18:00 Losartan Potassium (Cozaar) 25 mg DAILY PO Last administered on 06/09/21at 08:43; Start 06/09/21 at 09:00 Montelukast Sodium (Singulair) 10 mg HS PO Last administered on 06/09/21at 20:04; Start 06/08/21 at 21:00 Insulin Glargine (Lantus Syringe) 30 unit QHS SQ Last administered on 06/09/21at 20:53; Start 06/08/21 at 21:00 Lorazepam (Ativan) 1 mg PRN BID PRN PO ANXIETY / AGITATION Last administered on 06/09/21at 20:05; Start 06/08/21 at 11:45 Levofloxacin/ Dextrose 150 ml @ 100 mls/hr Q48H IV Last administered on 06/09/21at 12:48; Start 06/09/21 at 12:30 Levofloxacin/ Dextrose 150 ml @ 100 mls/hr Q24H IV ; Start 9/22/21 at 12:30; Stop 06/09/21 at 12:30; Status DC Lactobacillus Rhamnosus (Culturelle) 1 cap BID PO ; Start 06/10/21 at 09:00 Active Scripts Active Reported Atorvastatin Calcium 10 Mg Tablet 10 Mg PO QHS Ativan (Lorazepam) 1 Mg Tablet 1 Tab PO DAILY MDD 3 Tablet(s) 30 Days Colace (Docusate Sodium) 100 Mg Capsule 1 Cap PO BID 30 Days Hydrocodone-Apap 5-325 (Hydrocodone Bit/Acetaminophen) 1 Each Tablet 1 Tab PO PRN Q6HRS PRN Lantus Solostar (Insulin Glargine,Hum.rec.anlog) 100 Unit/1 Ml Insuln.pen 30 Unit SQ QHS Montelukast Sodium Tablet (Montelukast Sodium) 10 Mg Tablet 10 Mg PO HS Eliquis (Apixaban) 5 Mg Tablet 5 Mg PO BID Albuterol Sulfate Neb Soln (Albuterol Sulfate) 1.25 Mg/3 Ml Vial.neb 1 Vial NEB Q6HRS Proair Hfa Inhaler (Albuterol Sulfate) 8.5 Gm Hfa.aer.ad 2 Puff IH PRN Q4-6HRS PRN 21 Days Dorzolamide-Timolol Eye Drops (Dorzolamide Hcl/Timolol Maleat) 10 Ml Drops 1 Drop OD DAILY07 Xalatan (Latanoprost) 2.5 Ml Drops 1 Drop OU [id number] Triamterene-Hctz 37.5-25 Mg Tb (Triamterene/Hydrochlorothiazid) 1 Each Tablet 1 Tab PO DAILY Losartan Potassium (Losartan Potassium) 25 Mg Tablet 7.5 Mg PO DAILY Cartia Xt (Diltiazem Hcl) 180 Mg Cap.er.24h 180 Mg PO DAILY08 ALLERGIES Allergies: Coded Allergies: ibuprofen (Verified Allergy, Severe, Anaphylaxis, 04/28/21) Penicillins (Verified Allergy, Intermediate, 04/29/21) ROS Review of Systems 14 point ROS conducted with pertinent positives noted above in HPI, although limited due to dementia. PHYSICAL EXAM Physical Exam General: Alert, Cooperative, No acute distress, Other (oriented to person only) Lungs: Other (diminished bases, fine expiratory wheezes) Heart: Regular rate (MAT) Abdomen: Soft Extremities: No edema, Normal pulses Skin: No rashes, No breakdown Neuro: Normal speech, Sensation intact Psych/Mental Status: Mood NL, Other (confused) MUSCULOSKELETAL: Osteoarthritic changes both hands VITALS Vital Signs Vital Signs Date Time Temp Pulse Resp B/P (MAP) Pulse Ox O2 Delivery O2 Flow Rate FiO2 06/09/21 23:09 118 06/09/21 20:33 98.1 22 106/71 (83) 99 06/09/21 20:00 Nasal Cannula 3.0 LABS LABS Laboratory Tests Test 06/08/21 20:08 06/09/21 07:59 06/09/21 12:07 06/09/21 17:04 Glucose (Fingerstick) 273 mg/dL (70-99) 72 mg/dL (70-99) 133 mg/dL (70-99) 217 mg/dL (70-99) Test 06/10/21 08:02 06/10/21 08:38 Glucose (Fingerstick) 45 mg/dL (70-99) 117 mg/dL (70-99) EKG EKG 13-day Holter Monitor 01/26/21 Asymptomatic increased ventricular ectopic activity totaling 6.4% with included some triplets and 4 beat run on NSVT Increased asymptomatic supraventricular ectopic activity which included multiple short episodes of PAT up to 13 beats long No AFIB ECHOCARDIOGRAM Echocardiogram Echo 02/05/21 Mild LVH Normal LV systolic function with EF 55-60% Grade II diastolic dysfunction Left atrium is mildly dilated Mild aortic stenosis Mild mitral annular calcification Mild dilatation of the ascending aorta 3.9 cm STRESS TEST Stress Test MPI 02/05/21 Normal perfusion with distal small breast attenuation artifact LVEF normal No stress induced EKG changes ASSESSMENT/PLAN Assessment/Plan 1. Acute respiratory failure with CHF and possible PNA 2. Tachyarrhythmia; EKG shows MAT. Tele with MAT versus AFIB, rate intermittently elevated. On Cardizem for rate control. [facility] Recent event monitor with SR, PAT. No AFIB as noted above 3. Acute on chronic diastolic CHF; Recent echo with preserved LV systolic function 4. Hypertension; controlled 5. Hyperlipidmia; statin 6. Diabetes, II 7. CKD; Cr stable 8. Dementia 9. H/o DVT on Eliquis therapy 10. Coccyx ulcer Recommendations Continue Cardizem Add low-dose metoprolol for rate control as blood pressure is low end Repeat labs Diuresis with monitoring of renal function Eliquis for h/o DVT Supportive care EVONNE WILHELM APRN Jun 10, 2021 09:03
[2021-06-10] MEDS ORDERED: FUROSEMIDE 40 MG/4 ML VIAL IVP ONE (09:15)
[2021-06-10] MEDS: METOPROLOL TART IMMED RELEASE 25 MG TABLET. PO SCH ×2 (09:16→20:03)
[2021-06-10 10:30] VITALS: BP 100/57
[2021-06-10 12:05] LABS: BASO % 0 % (0-3); EOS # 0.2 x10^3/uL (0.0-0.7); EOS % 2 % (0-3); HEMATOCRIT 32.3 % (36.0-47.0); HEMOGLOBIN 10.5 g/dL (12.0-15.5); LYMPH # 1.2 x10^3/uL (1.0-4.8); LYMPH % 12 % (24-48); MEAN CORPUSCULAR HEMOGLOBIN 29 pg (25-35); MEAN CORPUSCULAR HGB CONC 33 g/dL (31-37); MEAN CORPUSCULAR VOLUME 88 fL (79-100); MONO # 1.6 x10^3/uL (0.0-1.1); MONO % 17 % (0-9); NEUT # 6.8 x10^3uL (1.8-7.7); NEUT % 69 % (31-73); PLATELET COUNT 465 x10^3/uL (140-400); RED BLOOD COUNT 3.68 x10^6/uL (3.50-5.40); WHITE BLOOD COUNT 9.8 x10^3/uL (4.0-11.0)
[2021-06-10 12:26] LABS: CALCIUM 9.2 mg/dL (8.5-10.1); CREATININE 1.4 mg/dL (0.6-1.0); GFR 35.7; MAGNESIUM 1.9 mg/dL (1.8-2.4); POTASSIUM 3.9 mmol/L (3.5-5.1)
[2021-06-10] MEDS ORDERED: POTASSIUM CHLORIDE 20 MEQ TABLET.ER. PO ONE (14:45)
[2021-06-10 16:08] VITALS: BP 135/66
[2021-06-10] MEDS: IPRATRPIUM/ALBUTEROL 0.5/2.5MG 3 ML NEBU. NEB SCH ×2 (16:50→21:33)
[2021-06-10] MEDS: MONTELUKAST 10 MG TABLET. PO SCH ×2 (20:02→20:07)
[2021-06-10] MEDS: ATORVASTATIN CALCIUM 10 MG TABLET. PO SCH (20:03)
[2021-06-10] MEDS: LORazepam 1 MG TABLET PO PRN (20:03)
[2021-06-10 20:23] VITALS: BP 104/67
[2021-06-10] MEDS: INSULIN GLARGINE SYRINGE. SQ SCH (21:00)
[2021-06-10 22:49] VITALS: BP 101/60
--- NOTE | 2021-06-10 22:56 | PN ---
DATE: 06/10/2021 SUBJECTIVE: The patient is resting, slightly propped up in bed, in no apparent distress, sleepy, but arousable. She apparently is more awake, alert today, less confused according to the nursing staff. PHYSICAL EXAMINATION: GENERAL: When I examined her, she was pale, but no jaundice, cyanosis, no lymphadenopathy, no thyromegaly, no jugular venous distention. No limb edema. VITAL SIGNS: Her heart rate was 96, blood pressure 100/57, temperature was 99.1, respiratory rate 20, and oxygen saturation was 96% on 4 liters of oxygen by nasal cannula. HEAD, EYES, EARS, NOSE AND THROAT: Normocephalic, atraumatic. NECK: Supple. HEART: Showed normal first and second heart sounds, no gallop, rub or murmur. CHEST: Clear to auscultation, no crepitation or rhonchi. ABDOMEN: Distended, soft, nontender. No guarding or rigidity. No organomegaly. All hernial orifice intact. Bowel sounds normal. NEUROLOGIC: She was demented, but without any obvious lateralizing sign. Her intake over the last 24 hours was 840, output was 1200. LABORATORY DATA: As of this morning, her white cell count was 9800, hemoglobin 10.5, hematocrit 32, MCV 88, and platelet count of 465,000. Her chemistry showed a serum sodium 135, potassium 3.9, chloride 96, bicarbonate 31, anion gap of 8, BUN 19, creatinine 1.4. Estimated GFR was 35 mL per minute. Her glucose was 208, calcium was 9.2, magnesium was 1.9. Beta-natriuretic peptide was 20,237. Her chest x-ray done yesterday showed findings suggestive of interstitial pulmonary edema and possible superimposed multinodular pneumonia. ASSESSMENT: 1. Acute respiratory failure, likely due to congestive heart failure and possible pneumonia. 2. Iatfu-qe-jaowqtv diastolic congestive heart failure with most recent echocardiogram showing preserved left ventricular systolic function. 3. Tachyarrhythmia, likely multifocal atrial tachycardia versus atrial fibrillation. She is currently on Cardizem and low-dose metoprolol was added by the Cardiology team. 4. Hyperlipidemia. 5. Type 2 diabetes mellitus. 6. Chronic kidney disease. 7. Dementia. 8. History of deep venous thrombosis on Eliquis therapy. 9. Coccygeal decubitus ulcer. PLAN: My plan is to continue with IV levofloxacin. We will evaluate the need for diuretics on a daily basis. I will add DuoNeb as she is clearly very wheezy and decide on further management accordingly. JOSUÉ/PRATIMA DR: Dia TID: [id number]
--- NOTE | 2021-06-11 02:25 | NUR ---
Awake, confused, calling out all night thus far; oriented to self only, unable to redirect and/or reorient; removes oxygen, heart monitor, and blankets whenever left alone even for brief time; calls out for her mother or other family members often; persistent attempts by all staff to comfort and calm pt ineffective thus far; VSS, quality assurance monitor chassis shows afib with rate 100-120 bpm, afebrile; maradiaga cath draining clear yellow urine with no problems noted; bed alarm active and full side rails up for safety.
[2021-06-11] MEDS: ALBUTEROL SULFATE 2.5 MG/3 ML NEBU. NEB PRN (04:02)
[2021-06-11] MEDS: IPRATRPIUM/ALBUTEROL 0.5/2.5MG 3 ML NEBU. NEB SCH ×4 (06:11→20:36)
[2021-06-11 06:19] VITALS: BP 116/57
[2021-06-11] MEDS: LATANOPROST 0.005% OPHTH SOLUTION 2.5ML BOTTLE. OU SCH ×2 (07:00→18:00)
[2021-06-11 07:09] LABS: HEMATOCRIT 31.3 % (36.0-47.0); HEMOGLOBIN 10.1 g/dL (12.0-15.5); RED BLOOD COUNT 3.59 x10^6/uL (3.50-5.40); RED CELL DISTRIBUTION WIDTH 17.3 % (11.5-14.5); WHITE BLOOD COUNT 10.3 x10^3/uL (4.0-11.0)
[2021-06-11 07:31] LABS: ALBUMIN 2.2 g/dL (3.4-5.0); ALBUMIN/GLOBULIN RATIO 0.5 (1.0-1.7); CALCIUM 8.7 mg/dL (8.5-10.1); CREATININE 1.3 mg/dL (0.6-1.0); GFR 38.8; TOTAL BILIRUBIN 0.4 mg/dL (0.2-1.0); TOTAL PROTEIN 6.5 g/dL (6.4-8.2)
[2021-06-11] MEDS: LOSARTAN 25 MG TABLET. PO SCH (08:29)
[2021-06-11] MEDS: APIXABAN 5 MG TABLET. PO SCH ×2 (08:29→20:57)
[2021-06-11] MEDS: LACTOBACILLUS RHAMNOSUS GG 1 CAPSULE. PO SCH ×2 (08:29→20:56)
[2021-06-11] MEDS: DORZOLAMIDE/TIMOLOL 2%/0.5% OPHTH SOLUTION 10ML BOTTLE. OD SCH (08:29)
[2021-06-11] MEDS: METOPROLOL TART IMMED RELEASE 25 MG TABLET. PO SCH ×2 (08:30→20:57)
[2021-06-11 10:32] VITALS: BP 111/54
--- NOTE | 2021-06-11 13:41 | PDOC ---
DATE OF SERVICE: DOS: DATE: 06/11/21 TIME: 13:38 SUBJECTIVE: Patient seen and examined OBJECTIVE: Problems: Problems Medical Problems: (1) Dementia Status: Acute (2) Pneumonia Status: Acute Chest. Mildly decreased breath sounds bilaterally. CV. Regular rhythm. 1/6 systolic murmur. Abdomen. Soft with no tenderness. Vital Signs/I&O: Vital Signs Date Time Temp Pulse Resp B/P (MAP) Pulse Ox O2 Delivery O2 Flow Rate FiO2 06/11/21 10:41 96 Nasal Cannula 3.0 06/11/21 10:32 97.3 105 20 111/54 (73) I & O 06/10/21 06/10/21 06/11/21 15:00 23:00 07:00 Intake Total 600 ml 240 ml 50 ml Output Total 550 ml 450 ml Balance 600 ml -310 ml -400 ml Labs: Laboratory Tests Test 06/10/21 16:36 06/10/21 19:21 06/11/21 06:50 06/11/21 07:26 Glucose (Fingerstick) 224 mg/dL (70-99) H 321 mg/dL (70-99) H 175 mg/dL (70-99) H White Blood Count 10.3 x10^3/uL (4.0-11.0) Red Blood Count 3.59 x10^6/uL (3.50-5.40) Hemoglobin 10.1 g/dL (12.0-15.5) L Hematocrit 31.3 % (36.0-47.0) L Mean Corpuscular Volume 87 fL (79-100) Mean Corpuscular Hemoglobin 28 pg (25-35) Mean Corpuscular Hemoglobin Concent 32 g/dL (31-37) Red Cell Distribution Width 17.3 % (11.5-14.5) H Platelet Count 421 x10^3/uL (140-400) H Sodium Level 132 mmol/L (136-145) L Potassium Level 4.0 mmol/L (3.5-5.1) Chloride Level 97 mmol/L (98-107) L Carbon Dioxide Level 29 mmol/L (21-32) Anion Gap 6 (6-14) Blood Urea Nitrogen 20 mg/dL (7-20) Creatinine 1.3 mg/dL (0.6-1.0) H Estimated GFR (Cockcroft-Gault) 38.8 BUN/Creatinine Ratio 15 (6-20) Glucose Level 207 mg/dL (70-99) H Calcium Level 8.7 mg/dL (8.5-10.1) Total Bilirubin 0.4 mg/dL (0.2-1.0) Aspartate Amino Transferase (AST) 18 U/L (15-37) Alanine Aminotransferase (ALT) 15 U/L (14-59) Alkaline Phosphatase 77 U/L (46-116) Total Protein 6.5 g/dL (6.4-8.2) Albumin 2.2 g/dL (3.4-5.0) L Albumin/Globulin Ratio 0.5 (1.0-1.7) L Test 06/11/21 11:24 Glucose (Fingerstick) 196 mg/dL (70-99) H Physical Exam: As above. ASSESSMENT: Acute respiratory failure with CHF and possible PNA. The patient is feeling better today. Would continue present treatment. Tachyarrhythmia; EKG shows MAT. Tele with MAT versus AFIB, rate intermittently elevated. On Cardizem for rate control. [facility] Recent event monitor with GUCCI NARANJO. Acute on chronic diastolic CHF; Recent echo with preserved LV systolic function. Improved today. Hypertension; low-dose beta-noemi. Hyperlipidmia; statin Diabetes, II CKD; Cr stable Dementia H/o DVT on Eliquis therapy Justification of Admission: Justification of Admission: Justification of Admission Dx: Yes EVE ANTUNEZ MD Jun 11, 2021 13:41
--- NOTE | 2021-06-11 13:57 | RAD ---
XR CHEST 1V History: Reason: FOLLOW UP ON PNEUMONIA AND CHF / Spl. Instructions: / History: Comparison: June 09, 2021 Findings: Increased bibasilar opacities, left greater than right. Possible small bilateral pleural effusions. N o pneumothorax. Unchanged heart size. Impression: 1. Increased bibasilar opacities, left greater than right. Electronically signed by: Mckinley Mcgee DO (06/11/2021 1:55 PM) [id number]
--- NOTE | 2021-06-11 15:25 | NUR ---
discharge note pt discharge at 1525 via wheelchair . pt given written and verbal information with verbal statement of understanding received.
[2021-06-11 19:35] VITALS: BP 96/54
[2021-06-11] MEDS: MONTELUKAST 10 MG TABLET. PO SCH ×2 (20:56)
[2021-06-11] MEDS: ATORVASTATIN CALCIUM 10 MG TABLET. PO SCH (20:56)
[2021-06-11] MEDS: INSULIN GLARGINE SYRINGE. SQ SCH (20:57)
[2021-06-11] MEDS ORDERED: OLANZapine 5 MG TABLET PO SCH (21:00)
[2021-06-11 23:56] VITALS: BP 129/65
[2021-06-12] MEDS: LORazepam 1 MG TABLET PO PRN ×2 (00:42→19:37)
--- NOTE | 2021-06-12 01:10 | PN ---
DATE: 06/11/2021 SUBJECTIVE: The patient is resting almost flat in bed, in no apparent respiratory distress. She is very sleepy, but arousable. According to nursing staff, she does not sleep at nighttime, restless and agitated, but sleeps usually during daytime. She was able to sit in the chair this morning and has eaten her breakfast and did work with physical therapy. When I saw her this afternoon, she was extremely sleepy. PHYSICAL EXAMINATION: GENERAL: When I examined her, she was pale, but not jaundiced or cyanosed, no lymphadenopathy, no thyromegaly, no jugular venous distention. No limb edema. VITAL SIGNS: Her heart rate was 105, blood pressure is 111/54, temperature 97.3, respiratory rate 20, and oxygen saturation was 96% on 3 liters of oxygen. HEAD, EYES, EARS, NOSE, AND THROAT: Normocephalic, atraumatic. NECK: Supple. HEART: Showed normal first and second heart sounds. No gallop, rub, or murmur. CHEST: Clear to auscultation, no crepitation or rhonchi. ABDOMEN: Distended, soft, nontender, no guarding or rigidity. No organomegaly. NEUROLOGIC: She is demented, but without any obvious lateralizing sign. Her intake over the last 24 hours was 1890, output was 1000. LABORATORY DATA: As of this morning, her white cell count is 10,000, hemoglobin 10, hematocrit 31, MCV 87, and platelet count 421,000. Her chemistry showed a serum sodium of 132, potassium 4, chloride 97, bicarbonate 29, anion gap of 6, BUN 20, creatinine 1.3. Estimated GFR was 38 mL per minute. Her glucose 207, calcium was 8.7. Total bilirubin, AST, ALT, alkaline phosphatase were normal. Total protein 6.5, albumin 2.2. Urinalysis essentially unremarkable. Her coronavirus by PCR was negative. Her chest x-ray was done this morning. The report is still pending. As of her most recent chest x-ray, it showed that the patient has stable mild cardiomegaly, increased central pulmonary vascular congestion, tortuous thoracic aorta with calcification of the aortic arch, increased interstitial marking, and scattered patchy lower lobe predominantly hazy opacities, no pneumothorax. There is blunting of the right costophrenic angle, small right-sided pleural effusion, no sizable left-sided pleural effusion. ASSESSMENT: 1. Acute hypoxic respiratory failure likely due to acute on chronic diastolic congestive heart failure and possible pneumonia. 2. Acute on chronic diastolic congestive heart failure. Her most recent echocardiogram showing a preserved left ventricular systolic function. 3. Tachyarrhythmia, likely multifocal, atrial tachycardia versus atrial fibrillation. She is currently on Cardizem and low dose metoprolol was added by the Cardiology team. 4. Hyperlipidemia. 5. Type 2 diabetes mellitus. 6. Chronic kidney disease. 7. Dementia. 8. History of deep vein thrombosis, on Eliquis. 9. Coccygeal decubitus ulcer. PLAN: My plan is to continue with IV levofloxacin. I will start her on Zyprexa at nighttime and she will be discharged back to [facility] tomorrow. ELSI DR: Dia TID: [id number]
[2021-06-12] MEDS: IPRATRPIUM/ALBUTEROL 0.5/2.5MG 3 ML NEBU. NEB SCH ×4 (05:21→20:09)
[2021-06-12 05:42] VITALS: BP 101/69
[2021-06-12] MEDS: LATANOPROST 0.005% OPHTH SOLUTION 2.5ML BOTTLE. OU SCH ×2 (05:59→18:05)
[2021-06-12] MEDS: DORZOLAMIDE/TIMOLOL 2%/0.5% OPHTH SOLUTION 10ML BOTTLE. OD SCH (05:59)
[2021-06-12 07:37] LABS: HEMATOCRIT 29.4 % (36.0-47.0); HEMOGLOBIN 9.4 g/dL (12.0-15.5); RED BLOOD COUNT 3.41 x10^6/uL (3.50-5.40); WHITE BLOOD COUNT 10.9 x10^3/uL (4.0-11.0)
[2021-06-12] MEDS ORDERED: DEXTROSE ORAL GEL 15 GM TUBE. ONE (07:50)
[2021-06-12] MEDS ORDERED: DEXTROSE 50% 25 GM / 50ML DISP.SYRIN. IV ONE ×3 (07:51→08:15)
[2021-06-12 07:54] LABS: CALCIUM 8.5 mg/dL (8.5-10.1); CREATININE 1.3 mg/dL (0.6-1.0); GFR 38.8; POTASSIUM 3.7 mmol/L (3.5-5.1)
[2021-06-12] MEDS: APIXABAN 5 MG TABLET. PO SCH ×2 (08:10→19:36)
[2021-06-12] MEDS: METOPROLOL TART IMMED RELEASE 25 MG TABLET. PO SCH ×2 (08:10→19:45)
[2021-06-12] MEDS: LACTOBACILLUS RHAMNOSUS GG 1 CAPSULE. PO SCH ×2 (08:11→19:36)
[2021-06-12] MEDS: LOSARTAN 25 MG TABLET. PO SCH (08:12)
[2021-06-12] MEDS: oxyCODONE IR 5 MG TABLET PO PRN ×2 (08:19→19:37)
[2021-06-12 11:19] VITALS: BP 92/53
--- NOTE | 2021-06-12 14:19 | PDOC ---
DATE OF SERVICE: DOS: DATE: 06/12/21 TIME: 14:17 SUBJECTIVE: Patient seen and examined OBJECTIVE: Problems: Problems Medical Problems: (1) Dementia Status: Acute (2) Pneumonia Status: Acute Vital Signs/I&O: Vital Signs Date Time Temp Pulse Resp B/P (MAP) Pulse Ox O2 Delivery O2 Flow Rate FiO2 06/12/21 11:19 97.7 82 20 92/53 (66) 97 Nasal Cannula 06/12/21 10:41 3.0 I & O 06/11/21 06/11/21 06/12/21 15:00 23:00 07:00 Intake Total 600 ml 150 ml Output Total 300 ml 450 ml Balance 600 ml -300 ml -300 ml Labs: Laboratory Tests Test 06/11/21 17:00 06/11/21 20:09 06/12/21 06:35 06/12/21 07:45 Glucose (Fingerstick) 207 mg/dL (70-99) H 290 mg/dL (70-99) H 52 mg/dL (70-99) L White Blood Count 10.9 x10^3/uL (4.0-11.0) Red Blood Count 3.41 x10^6/uL (3.50-5.40) L Hemoglobin 9.4 g/dL (12.0-15.5) L Hematocrit 29.4 % (36.0-47.0) L Mean Corpuscular Volume 86 fL (79-100) Mean Corpuscular Hemoglobin 28 pg (25-35) Mean Corpuscular Hemoglobin Concent 32 g/dL (31-37) Red Cell Distribution Width 17.0 % (11.5-14.5) H Platelet Count 374 x10^3/uL (140-400) Sodium Level 134 mmol/L (136-145) L Potassium Level 3.7 mmol/L (3.5-5.1) Chloride Level 99 mmol/L (98-107) Carbon Dioxide Level 29 mmol/L (21-32) Anion Gap 6 (6-14) Blood Urea Nitrogen 20 mg/dL (7-20) Creatinine 1.3 mg/dL (0.6-1.0) H Estimated GFR (Cockcroft-Gault) 38.8 Glucose Level 60 mg/dL (70-99) L Calcium Level 8.5 mg/dL (8.5-10.1) SO-Khx-C-Type Natriuretic Peptide 13517 pg/mL (0-449) H Test 06/12/21 08:22 06/12/21 12:05 06/12/21 13:36 Glucose (Fingerstick) 105 mg/dL (70-99) H 56 mg/dL (70-99) L 49 mg/dL (70-99) L Physical Exam: Chest. Mildly decreased breath sounds. CV. Regular rate and rhythm. Abdomen. Soft. ASSESSMENT: Acute respiratory failure with CHF and possible PNA. The patient continues to feel better. Would continue present treatment. Tachyarrhythmia; EKG shows MAT. Tele with MAT versus AFIB, rate intermittently elevated. On Cardizem for rate control. [facility] Recent event monitor with GUCCI NARANJO. Acute on chronic diastolic CHF; Recent echo with preserved LV systolic function. Improved today. Hypertension; low-dose beta-noemi. Hyperlipidmia; statin Diabetes, II CKD; Cr stable Dementia H/o DVT on Eliquis therapy Justification of Admission: Justification of Admission: Justification of Admission Dx: Yes EVE ANTUNEZ MD Jun 12, 2021 14:19
[2021-06-12] MEDS: IV DEXTROSE 10% 1,000 ML IV SCH (14:44)
--- NOTE | 2021-06-12 15:30 | RAD ---
EXAM: CT CHEST WITHOUT CONTRAST HISTORY: Worsening infiltrates COMPARISON: CT chest 06/06/2021. Chest radiograph 06/11/2021 TECHNIQUE: Helical CT of the chest performed without contrast. Coronal and sagittal reformats were o btained. One or more of the following individualized dose reduction techniques were utilized for this examinat ion: 1. Automated exposure control 2. Adjustment of the mA and/or kV according to patient size 3. Use of iterative reconstruction technique. FINDINGS: Thyroid gland and thoracic inlet: Unchanged small hypodense nodules in the right thyroid lobe measuri ng up to 9 mm. Heart and great vessels: Heart is normal in size. There are extensive coronary artery calcifications. No pericardial effusion. Thoracic aorta is normal in caliber with severe calcified atherosclerosis. Mediastinum and mauri: There are small mediastinal and hilar lymph nodes, nonspecific but likely react ching. Lungs and pleura: There is significant motion artifact. Right apical consolidative opacities are unch anged. Small scattered nodular opacities elsewhere are likely unchanged allowing for differences in s lice thickness of CTs and motion artifact. There are increased small bilateral pleural effusions and adjacent consolidations or atelectasis in the lower lobes. Unchanged mild atelectasis in the lingula and right middle lobe. Interlobular septal thickening at the apices is less conspicuous although eval uation is limited by motion artifact. Chest wall and axillae: No axillary lymphadenopathy. Upper abdomen: Unremarkable. Bones: There is severe right glenohumeral osteoarthrosis. The patient is rotated and slightly tilted to the left. Mild thoracic degenerative disc disease. IMPRESSION: 1. The exam is limited by motion artifact. 2. There are increased, small right greater than left pleural effusions and adjacent atelectasis or consolidation. 3. No significant change in consolidative opacities in the right apex and small scattered nodular op acities elsewhere, allowing for differences in technique. Interlobular septal thickening at the apice s is less conspicuous but evaluation is limited by motion artifact. 4. Coronary artery and aortic calcifications. Electronically signed by: Mirna Devi MD (06/12/2021 3:28 PM) [id number]
[2021-06-12 15:45] VITALS: BP 115/64
[2021-06-12] MEDS: LIDOCAINE (700MG/PATCH) PATCH. TD SCH (16:33)
[2021-06-12] MEDS: MONTELUKAST 10 MG TABLET. PO SCH (19:37)
[2021-06-12] MEDS: traZODone 50 MG TABLET. PO SCH (19:37)
[2021-06-12] MEDS: ATORVASTATIN CALCIUM 10 MG TABLET. PO SCH (19:37)
[2021-06-12] MEDS: PATCH REMOVAL. MC SCH (19:45)
[2021-06-12 20:21] VITALS: BP 95/60
[2021-06-12] MEDS: INSULIN GLARGINE SYRINGE. SQ SCH (20:29)
--- NOTE | 2021-06-12 22:47 | PN ---
DATE: 06/12/2021 SUBJECTIVE: The patient is very sleepy, lethargic, transpired that she has not eaten her breakfast or lunch and she is hypoglycemic. Her blood sugar when I saw was only 48 and therefore, I did consult the plan of discharge. I will start her on D10 at 30 mL per hour. PHYSICAL EXAMINATION: GENERAL: When I examined her, she was somewhat pale, but not jaundiced or cyanosed, no lymphadenopathy, no thyromegaly, no jugular venous distention. No limb edema. VITAL SIGNS: Her heart rate was 82, blood pressure was 92/53, temperature 97.7, respiratory rate 20, and oxygen saturation was 97%. HEAD, EYES, EARS, NOSE, AND THROAT: Normocephalic, atraumatic. NECK: Supple. HEART: Showed normal first and second heart sounds, no gallop, rub, or murmur. CHEST: Clear to auscultation, no crepitation or rhonchi. ABDOMEN: Soft, nontender. NEUROLOGIC: She is very lethargic, but arousable. Her intake was 890, output was 1000. LABORATORY WORK: This morning showed a white cell count of 10,900, hemoglobin 9.4, hematocrit 29, MCV 86, and platelet count of 374,000. Her chemistry showed a serum sodium 134, potassium 3.7, chloride 99, bicarbonate 29, anion gap of 6, BUN 20, creatinine 1.3. Estimated GFR was 39 mL per minute. Her glucose has been consistently low from early this morning, calcium was 8.5, and beta natriuretic peptide was down to 17,799. ASSESSMENT: 1. Altered mental status and likely due to hypoglycemia, we should start her on D10W at 30 mL. We will monitor her blood sugar closely. 2. Her chest x-ray showed that she has worsening infiltrate, left greater than right. 3. Acute hypoxic respiratory failure likely due to acute on chronic diastolic congestive heart failure with possible pneumonia. 4. Acute on chronic diastolic congestive heart failure. Her most recent echocardiogram showed preserved left ventricular systolic function. Her BMP is down from 20,000 to 17,000. 5. Tachyarrhythmia, likely multifocal atrial tachycardia versus atrial fibrillation. She is currently on Cardizem and low dose metoprolol. 6. Hyperlipidemia. 7. Type 2 diabetes mellitus. 8. Chronic kidney disease. 9. Dementia. 10. History of deep vein thrombosis, which she is on Eliquis. 11. Coccygeal decubitus ulcer. PLAN: My plan is to see if we can cut down some of her medications as she is borderline hypotensive. She is on losartan, diltiazem as well as metoprolol. I will discontinue the losartan and we can cut down also the metoprolol to 12.5. ELSI DR: Dia TID: [id number]
[2021-06-12 23:30] VITALS: BP 80/40
[2021-06-12 23:53] VITALS: BP 87/51
[2021-06-13] MEDS: IPRATRPIUM/ALBUTEROL 0.5/2.5MG 3 ML NEBU. NEB SCH ×4 (05:01→20:12)
[2021-06-13 06:06] VITALS: BP 87/44
[2021-06-13 07:18] LABS: BASO # 0.1 x10^3/uL (0.0-0.2); BASO % 1 % (0-3); EOS # 0.3 x10^3/uL (0.0-0.7); EOS % 3 % (0-3); HEMATOCRIT 29.6 % (36.0-47.0); HEMOGLOBIN 9.6 g/dL (12.0-15.5); LYMPH # 1.5 x10^3/uL (1.0-4.8); LYMPH % 15 % (24-48); MEAN CORPUSCULAR HEMOGLOBIN 28 pg (25-35); MEAN CORPUSCULAR HGB CONC 32 g/dL (31-37); MEAN CORPUSCULAR VOLUME 87 fL (79-100); MONO # 1.4 x10^3/uL (0.0-1.1); MONO % 15 % (0-9); NEUT # 6.4 x10^3uL (1.8-7.7); NEUT % 66 % (31-73); PLATELET COUNT 361 x10^3/uL (140-400); RED CELL DISTRIBUTION WIDTH 17.1 % (11.5-14.5); WHITE BLOOD COUNT 9.8 x10^3/uL (4.0-11.0)
[2021-06-13] MEDS: DORZOLAMIDE/TIMOLOL 2%/0.5% OPHTH SOLUTION 10ML BOTTLE. OD SCH (07:46)
[2021-06-13 08:05] LABS: CALCIUM 8.6 mg/dL (8.5-10.1); CREATININE 1.3 mg/dL (0.6-1.0); GFR 38.8; POTASSIUM 4.2 mmol/L (3.5-5.1)
[2021-06-13] MEDS: METOPROLOL TART IMMED RELEASE 25 MG TABLET. PO SCH ×2 (09:00→19:18)
[2021-06-13] MEDS ORDERED: FUROSEMIDE 40 MG/4 ML VIAL IVP ONE (09:15)
[2021-06-13] MEDS: APIXABAN 5 MG TABLET. PO SCH ×2 (09:24→19:17)
[2021-06-13] MEDS: LIDOCAINE (700MG/PATCH) PATCH. TD SCH (09:25)
[2021-06-13] MEDS: LATANOPROST 0.005% OPHTH SOLUTION 2.5ML BOTTLE. OU SCH ×3 (09:51→18:16)
[2021-06-13] MEDS: LACTOBACILLUS RHAMNOSUS GG 1 CAPSULE. PO SCH ×2 (10:57→19:17)
[2021-06-13] MEDS: ACETAMINOPHEN 325 MG TABLET PO PRN ×2 (10:59→19:17)
[2021-06-13 11:11] VITALS: BP 102/63
--- NOTE | 2021-06-13 11:39 | PDOC ---
DATE OF SERVICE: DOS: DATE: 06/13/21 TIME: 11:37 SUBJECTIVE: Patient seen and examined OBJECTIVE: Problems: Problems Medical Problems: (1) Dementia Status: Acute (2) Pneumonia Status: Acute Vital Signs/I&O: Vital Signs Date Time Temp Pulse Resp B/P (MAP) Pulse Ox O2 Delivery O2 Flow Rate FiO2 06/13/21 11:11 100.4 86 20 102/63 (76) 94 Nasal Cannula 3.0 I & O 06/12/21 06/12/21 06/13/21 15:00 23:00 07:00 Intake Total 50 ml 20 ml Output Total 500 ml 300 ml Balance -450 ml -280 ml Labs: Laboratory Tests Test 06/12/21 12:05 06/12/21 13:36 06/12/21 14:18 06/12/21 16:48 Glucose (Fingerstick) 56 mg/dL (70-99) L 49 mg/dL (70-99) L 92 mg/dL (70-99) 111 mg/dL (70-99) H Test 06/12/21 20:02 06/13/21 06:30 06/13/21 07:32 Glucose (Fingerstick) 89 mg/dL (70-99) 149 mg/dL (70-99) H White Blood Count 9.8 x10^3/uL (4.0-11.0) Red Blood Count 3.40 x10^6/uL (3.50-5.40) L Hemoglobin 9.6 g/dL (12.0-15.5) L Hematocrit 29.6 % (36.0-47.0) L Mean Corpuscular Volume 87 fL (79-100) Mean Corpuscular Hemoglobin 28 pg (25-35) Mean Corpuscular Hemoglobin Concent 32 g/dL (31-37) Red Cell Distribution Width 17.1 % (11.5-14.5) H Platelet Count 361 x10^3/uL (140-400) Neutrophils (%) (Auto) 66 % (31-73) Lymphocytes (%) (Auto) 15 % (24-48) L Monocytes (%) (Auto) 15 % (0-9) H Eosinophils (%) (Auto) 3 % (0-3) Basophils (%) (Auto) 1 % (0-3) Neutrophils # (Auto) 6.4 x10^3uL (1.8-7.7) Lymphocytes # (Auto) 1.5 x10^3/uL (1.0-4.8) Monocytes # (Auto) 1.4 x10^3/uL (0.0-1.1) H Eosinophils # (Auto) 0.3 x10^3/uL (0.0-0.7) Basophils # (Auto) 0.1 x10^3/uL (0.0-0.2) Sodium Level 134 mmol/L (136-145) L Potassium Level 4.2 mmol/L (3.5-5.1) Chloride Level 99 mmol/L (98-107) Carbon Dioxide Level 28 mmol/L (21-32) Anion Gap 7 (6-14) Blood Urea Nitrogen 20 mg/dL (7-20) Creatinine 1.3 mg/dL (0.6-1.0) H Estimated GFR (Cockcroft-Gault) 38.8 Glucose Level 152 mg/dL (70-99) H Calcium Level 8.6 mg/dL (8.5-10.1) Physical Exam: Chest. Mildly decreased breath sounds. CV. Regular rhythm. Abdomen. Soft. ASSESSMENT: Acute respiratory failure with CHF and possible PNA. The patient is more short of breath today. We will give 40 mg of IV Lasix and pulmonary treatments. Continue to closely monitor. Chest x-ray in the morning. Tachyarrhythmia; EKG shows MAT. Tele with MAT versus AFIB, rate intermittently elevated. On Cardizem for rate control. [facility] Recent event monitor with GUCCI NARANJO. Acute on chronic diastolic CHF; Recent echo with preserved LV systolic function. Increasing short of breath today as noted above. Treatment with Lasix. Hypertension; low-dose beta-noemi. Hyperlipidmia; statin Diabetes, II CKD; Cr stable at 1.3. Will recheck in the morning. Dementia H/o DVT on Eliquis therapy Justification of Admission: Justification of Admission: Justification of Admission Dx: Yes EVE ANTUNEZ MD Jun 13, 2021 11:39
[2021-06-13] MEDS: IV DEXTROSE 10% 1,000 ML IV SCH (13:45)
[2021-06-13 15:31] VITALS: BP 97/62
--- NOTE | 2021-06-13 18:35 | NUR ---
PER PHARMACY PT SHOULD NOT GET LATANAPROST EYE GTTS BID. DID NOT ADMINISTER BID THIS SHIFT.
[2021-06-13] MEDS: ATORVASTATIN CALCIUM 10 MG TABLET. PO SCH (19:17)
[2021-06-13] MEDS: MONTELUKAST 10 MG TABLET. PO SCH (19:17)
[2021-06-13] MEDS: traZODone 50 MG TABLET. PO SCH (19:17)
[2021-06-13 20:04] VITALS: BP 112/68
--- NOTE | 2021-06-13 20:17 | PN ---
DATE: 06/13/2021 SUBJECTIVE: The patient is resting, slightly propped up in bed, continued to have recurrent bouts of cough with thick whitish sputum. She is very wheezy, continued to have very poor appetite and her blood sugar was consistently low. Yesterday, she was started on D10 at 30 mL per hour and her blood sugar has improved on this afternoon. She has not really eaten much according to the nursing staff. Her lab work is mostly unremarkable; however, her CT scan of the chest without contrast showed that she is actually finding worse. There is significant motion artifact; however, the right apical consolidative opacities are unchanged. She has small scattered nodular opacities elsewhere are likely unchanged allowing for difference in slice thickness of the CT scan and motion artifact. There are increased small bilateral pleural effusion and adjacent consolidation or atelectasis in the lower lobes, unchanged mild atelectasis in the lingula and right middle lobe interlobular septal thickening diaphysis is less conspicuous, although evaluation is limited by motion artifact. She has coronary artery and aortic calcification. However, the thyroid gland and thoracic inlet is unremarkable. Heart and great vessels showed the heart is normal size. There are extensive coronary artery calcification. No pericardial effusion. However, the thoracic aorta is normal in caliber with severe calcified atherosclerosis. She does have small mediastinal hilar lymph nodes, nonspecific and likely reactive. PHYSICAL EXAMINATION: GENERAL: When I examined her this afternoon, she was pale, but not jaundice or cyanosed, no lymphadenopathy, no thyromegaly, no jugular venous distention. No lower limb edema. VITAL SIGNS: Her heart rate was 86, blood pressure is 102/63, temperature she did spike a temperature this morning up to 100.4, respiratory rate 20, and oxygen saturation was 94% on 3 liters of oxygen. HEAD, EYES, EARS, NOSE AND THROAT: Normocephalic, atraumatic. NECK: Supple. HEART: Showed normal first and second heart sounds, no gallop or murmur. CHEST: Clear to auscultation, no crepitation or rhonchi. ABDOMEN: Distended, soft, nontender. NEUROLOGIC: She is demented without any obvious lateralizing sign. She has multiple wounds in the coccyx and bilateral heel decubitus ulcer. Her intake over the last 24 hours was 750, output was 750. LABORATORY DATA: As of this morning, her white cell count was 9800; hemoglobin 9.6; hematocrit 29.6; MCV 87 and platelet count 361,000. Her serum sodium was 134, potassium 4.2, chloride 99, bicarbonate 28, anion gap of 7, BUN 20, creatinine 1.3. Estimated GFR was 39 mL per minute. Her glucose was 152, calcium was 8.6. ASSESSMENT: 1. Altered mental status, likely due to hypoglycemia that has improved. Her blood sugars has normalized now. 2. Her chest x-ray showed that she had worsening infiltrate, left greater than the right and the CT scan confirmed that finding. 3. Acute hypoxic respiratory failure likely due to on chronic diastolic congestive heart failure, possible superimposed pneumonia. 4. Acute on chronic diastolic congestive heart failure. Her most recent echocardiogram showed preserved left ventricular systolic function. Her BMP down from 20,000-17,000. Unfortunately, the patient is borderline hypotensive. 5. Tachyarrhythmias likely multifocal atrial tachycardia versus atrial fibrillation. She is currently on Cardizem and low dose metoprolol. 6. Hyperlipidemia. 7. Type 2 diabetes mellitus. 8. Chronic kidney disease. 9. Dementia. 10. History of deep vein thrombosis for which she is on Eliquis. 11. Coccygeal decubitus ulcer as well as bilateral heel decubitus ulcer. 12. The patient is borderline hypotensive. PLAN: I have discontinued her losartan yesterday. I cut down the metoprolol 12.5 mg twice a day. I will cut down her diltiazem to 120 mg and repeat her lab work tomorrow. I will also consult speech therapist tomorrow to evaluate to do a video swallowing evaluation. Her overall prognosis is poor. She seemed to be aspirating and my recommendation is obviously hospice that something unlikely that the family would accept but I will discuss this with our elementary school social worker tomorrow. JOSUÉ/TAMAR DR: Dia TID: [id number]
[2021-06-13] MEDS: INSULIN GLARGINE SYRINGE. SQ SCH (20:35)
[2021-06-13] MEDS: PATCH REMOVAL. MC SCH (20:45)
[2021-06-13] MEDS: oxyCODONE IR 5 MG TABLET PO PRN (20:56)
[2021-06-13] MEDS: LORazepam 1 MG TABLET PO PRN (20:56)
[2021-06-13 23:42] VITALS: BP 93/56
[2021-06-14] MEDS: IPRATRPIUM/ALBUTEROL 0.5/2.5MG 3 ML NEBU. NEB SCH ×4 (05:30→21:47)
[2021-06-14] MEDS: IV DEXTROSE 10% 1,000 ML IV SCH (05:35)
[2021-06-14 06:19] VITALS: BP 120/67
--- NOTE | 2021-06-14 06:28 | NUR ---
O2 Sat 100% on 3L via nasal canula, respirations even and unlabored; decreased oxygen to 2L, recheck at 10 min shows Sat 95% with no apparent distress.
[2021-06-14 07:00] LABS: BASO % 1 % (0-3); EOS # 0.6 x10^3/uL (0.0-0.7); EOS % 6 % (0-3); HEMATOCRIT 29.8 % (36.0-47.0); HEMOGLOBIN 9.7 g/dL (12.0-15.5); LYMPH # 1.6 x10^3/uL (1.0-4.8); LYMPH % 16 % (24-48); MEAN CORPUSCULAR HEMOGLOBIN 28 pg (25-35); MEAN CORPUSCULAR HGB CONC 33 g/dL (31-37); MEAN CORPUSCULAR VOLUME 87 fL (79-100); MONO # 1.1 x10^3/uL (0.0-1.1); MONO % 10 % (0-9); NEUT # 6.9 x10^3uL (1.8-7.7); NEUT % 68 % (31-73); PLATELET COUNT 353 x10^3/uL (140-400); RED BLOOD COUNT 3.44 x10^6/uL (3.50-5.40); RED CELL DISTRIBUTION WIDTH 16.8 % (11.5-14.5); WHITE BLOOD COUNT 10.2 x10^3/uL (4.0-11.0)
[2021-06-14 07:23] LABS: CALCIUM 9.1 mg/dL (8.5-10.1); CREATININE 1.3 mg/dL (0.6-1.0); GFR 38.8; MAGNESIUM 1.9 mg/dL (1.8-2.4); POTASSIUM 3.7 mmol/L (3.5-5.1)
[2021-06-14] MEDS: METOPROLOL TART IMMED RELEASE 25 MG TABLET. PO SCH ×2 (07:53→19:55)
[2021-06-14] MEDS: LACTOBACILLUS RHAMNOSUS GG 1 CAPSULE. PO SCH ×2 (07:54→19:53)
[2021-06-14] MEDS: APIXABAN 5 MG TABLET. PO SCH ×2 (07:54→19:56)
[2021-06-14] MEDS: LATANOPROST 0.005% OPHTH SOLUTION 2.5ML BOTTLE. OU SCH ×2 (07:55→16:42)
[2021-06-14] MEDS: LIDOCAINE (700MG/PATCH) PATCH. TD SCH (07:55)
[2021-06-14] MEDS: DORZOLAMIDE/TIMOLOL 2%/0.5% OPHTH SOLUTION 10ML BOTTLE. OD SCH (07:55)
--- NOTE | 2021-06-14 08:34 | PDOC ---
CARDIO Progress Notes Date & Time Date of Service DATE: 06/14/21 TIME: 08:30 Time of Evaluation 08:30 Subjective Notes reports cough and shortness of breath Vitals Vitals Vital Signs Date Time Temp Pulse Resp B/P (MAP) Pulse Ox O2 Delivery O2 Flow Rate FiO2 06/14/21 07:55 118 120/67 06/14/21 06:19 97.0 18 100 Nasal Cannula 3.0 Weight Weight [ ] Input and Output I.O. Intake and Output 06/14/21 07:00 Intake Total 660 ml Output Total 1370 ml Balance -710 ml Intake Oral 660 ml Output Urine Total 1370 ml Laboratory Labs Laboratory Tests Test 06/12/21 12:05 06/12/21 13:36 06/12/21 14:18 06/12/21 16:48 Glucose (Fingerstick) 56 mg/dL (70-99) 49 mg/dL (70-99) 92 mg/dL (70-99) 111 mg/dL (70-99) Test 06/12/21 20:02 06/13/21 06:30 06/13/21 07:32 06/13/21 11:28 Glucose (Fingerstick) 89 mg/dL (70-99) 149 mg/dL (70-99) 289 mg/dL (70-99) White Blood Count 9.8 x10^3/uL (4.0-11.0) Red Blood Count 3.40 x10^6/uL (3.50-5.40) Hemoglobin 9.6 g/dL (12.0-15.5) Hematocrit 29.6 % (36.0-47.0) Mean Corpuscular Volume 87 fL (79-100) Mean Corpuscular Hemoglobin 28 pg (25-35) Mean Corpuscular Hemoglobin Concent 32 g/dL (31-37) Red Cell Distribution Width 17.1 % (11.5-14.5) Platelet Count 361 x10^3/uL (140-400) Neutrophils (%) (Auto) 66 % (31-73) Lymphocytes (%) (Auto) 15 % (24-48) Monocytes (%) (Auto) 15 % (0-9) Eosinophils (%) (Auto) 3 % (0-3) Basophils (%) (Auto) 1 % (0-3) Neutrophils # (Auto) 6.4 x10^3uL (1.8-7.7) Lymphocytes # (Auto) 1.5 x10^3/uL (1.0-4.8) Monocytes # (Auto) 1.4 x10^3/uL (0.0-1.1) Eosinophils # (Auto) 0.3 x10^3/uL (0.0-0.7) Basophils # (Auto) 0.1 x10^3/uL (0.0-0.2) Sodium Level 134 mmol/L (136-145) Potassium Level 4.2 mmol/L (3.5-5.1) Chloride Level 99 mmol/L (98-107) Carbon Dioxide Level 28 mmol/L (21-32) Anion Gap 7 (6-14) Blood Urea Nitrogen 20 mg/dL (7-20) Creatinine 1.3 mg/dL (0.6-1.0) Estimated GFR (Cockcroft-Gault) 38.8 Glucose Level 152 mg/dL (70-99) Calcium Level 8.6 mg/dL (8.5-10.1) Test 06/13/21 16:25 06/13/21 20:31 06/14/21 06:40 06/14/21 07:43 Glucose (Fingerstick) 246 mg/dL (70-99) 258 mg/dL (70-99) 163 mg/dL (70-99) White Blood Count 10.2 x10^3/uL (4.0-11.0) Red Blood Count 3.44 x10^6/uL (3.50-5.40) Hemoglobin 9.7 g/dL (12.0-15.5) Hematocrit 29.8 % (36.0-47.0) Mean Corpuscular Volume 87 fL (79-100) Mean Corpuscular Hemoglobin 28 pg (25-35) Mean Corpuscular Hemoglobin Concent 33 g/dL (31-37) Red Cell Distribution Width 16.8 % (11.5-14.5) Platelet Count 353 x10^3/uL (140-400) Neutrophils (%) (Auto) 68 % (31-73) Lymphocytes (%) (Auto) 16 % (24-48) Monocytes (%) (Auto) 10 % (0-9) Eosinophils (%) (Auto) 6 % (0-3) Basophils (%) (Auto) 1 % (0-3) Neutrophils # (Auto) 6.9 x10^3uL (1.8-7.7) Lymphocytes # (Auto) 1.6 x10^3/uL (1.0-4.8) Monocytes # (Auto) 1.1 x10^3/uL (0.0-1.1) Eosinophils # (Auto) 0.6 x10^3/uL (0.0-0.7) Basophils # (Auto) 0.0 x10^3/uL (0.0-0.2) Sodium Level 135 mmol/L (136-145) Potassium Level 3.7 mmol/L (3.5-5.1) Chloride Level 98 mmol/L (98-107) Carbon Dioxide Level 30 mmol/L (21-32) Anion Gap 7 (6-14) Blood Urea Nitrogen 22 mg/dL (7-20) Creatinine 1.3 mg/dL (0.6-1.0) Estimated GFR (Cockcroft-Gault) 38.8 Glucose Level 169 mg/dL (70-99) Calcium Level 9.1 mg/dL (8.5-10.1) Magnesium Level 1.9 mg/dL (1.8-2.4) Physical Exams HEENT: Neck Supple W Full Motion Chest: Symmetric Lungs: Other Heart: RRR Abdomen: Soft N/T Extremities: No Edema Neurology: alert, follow commands Assessment Assessment 1. Acute respiratory failure with CHF and probable PNA. ? aspiration. 2. Tachyarrhythmia; EKG shows MAT. Tele with periods of MAT versus AFIB. presently SR in 's. On Cardizem for rate control. [facility] Recent event monitor with SR, PAT. 3. Acute on chronic diastolic CHF; Recent echo with preserved LV systolic function. Increasing short of breath today as noted above. Treatment with Lasix. 4. Hypertension; low end. Cardizem and metoprolol decreased 5. Hyperlipidmia; statin 6. Diabetes, II 7. CKD; Cr stable at 1.3. 8. Dementia 9. H/o DVT on Eliquis therapy Recommendations Mild diuresis Cardizem, metoprolol for rate control as BP allows Ongoing antibiotic therapy Hospice consideration EVONNE WILHELM APRN Jun 14, 2021 08:34
[2021-06-14] MEDS: ALBUTEROL SULFATE 2.5 MG/3 ML NEBU. NEB PRN (08:43)
[2021-06-14] MEDS ORDERED: FUROSEMIDE 40 MG/4 ML VIAL IVP ONE (10:00)
[2021-06-14] MEDS ORDERED: POTASSIUM CHLORIDE 20 MEQ TABLET.ER. PO ONE (10:00)
[2021-06-14 10:30] VITALS: BP 102/48
--- NOTE | 2021-06-14 11:23 | RAD ---
XR CHEST 1V INDICATION: SOA, CHF COMPARISON STUDY: CT 06/12/2021. Chest radiograph 06/11/2021 FINDINGS: Lungs: Normal lung volume. Improving bilateral perihilar opacities. Pleura: Stable small pleural effusions. Heart and Mediastinum: Stable cardiomediastinal silhouette and great vessels. IMPRESSION: 1. Improving bilateral opacities. 2. Stable small pleural effusions. Electronically signed by: Russel Richmond MD (06/14/2021 11:21 AM) [id number]
--- NOTE | 2021-06-14 12:54 | NUR ---
NURSING NOTE PER DR PAIZ, HOLD LASIX AT THIS TIME D/T BORDERLINE BLOOD PRESSURES. KIARA HERBERT.
--- NOTE | 2021-06-14 14:47 | NUR ---
NURSING NOTE PT WAS IN BED THIS AM UPON ASSESSMENT AND MEDICATION ADMINISTRATION. PT TOOK SOME MEDS 1 AT A TIME BUT WHOLE. PT IS ALERT TO SELF ONLY, STATING ITS 1965. PT IS LETHARGIC AND SHORT OF AIR. PRN BREATHING TREATMENT GIVEN THIS AM. PT HAS WET COUGH AND HAVING DIFFICULTY CLEARING SECRETIONS. PT IS ON 2 LITERS OF OXYGEN AT THIS TIME WITH HUMIDIFIER ATTACHED. PT HAS BEEN SINUS ARRHYTHMIA ON THE MONITOR. CARDIOLOGY CONSULTED AND ROUNDING ON PT DAILY. PT HAD CRACKLES THIS AM PRIOR TO BREATHING TREATMENT, AND WHEEZE IN UPPER LOBE. PT DID NOT HAVE AN APPETITE FOR BREAKFAST, REFUSED TO EAT. PT GIVEN ENSURE CLEAR AND MAGIC PUDDING CUP FOR NUTRITION. PT IS CURRENTLY GETTING D10@ 20MLS/HR FOR GLUCOSE IV FLUIDS. PT IS HERE FROM [place], DIAGNOSED WITH PNEUMONIA, CASE MANAGEMENT INVOLVED AND WORKING WITH FAMILY ABOUT DISCHARGE PLANNING. PER REPORT, FAMILY IN DENIAL THAT PT IS DECLINING. SPEECH THERAPY CONSULTED PER FAMILY REQUEST. PT THIS AFTERNOON HAS BEEN YELLING OUT AT TIMES "JAYDON, IS THAT YOU?" AND "PLEASE HELP ME". PT HAS PRN PAIN MEDICATION FOR HER HIP AND BACK, LIDOCAINE PATCH APPLIED THIS AM TO BACK FOR PAIN. KIARA HERBERT.
[2021-06-14 15:29] VITALS: BP 106/61
[2021-06-14] MEDS ORDERED: FUROSEMIDE 20 MG/2 ML VIAL IVP ONE (17:30)
[2021-06-14] MEDS: ATORVASTATIN CALCIUM 10 MG TABLET. PO SCH (19:53)
[2021-06-14] MEDS: PATCH REMOVAL. MC SCH (19:53)
[2021-06-14] MEDS: MONTELUKAST 10 MG TABLET. PO SCH (19:53)
[2021-06-14] MEDS: LORazepam 1 MG TABLET PO PRN (19:54)
[2021-06-14] MEDS: oxyCODONE IR 5 MG TABLET PO PRN (19:54)
[2021-06-14] MEDS: traZODone 50 MG TABLET. PO SCH (19:54)
[2021-06-14 20:01] VITALS: BP 109/62
[2021-06-14] MEDS: INSULIN GLARGINE SYRINGE. SQ SCH (21:30)
[2021-06-14 23:30] VITALS: BP 105/57
--- NOTE | 2021-06-15 02:49 | PN ---
DATE: 06/14/2021 SUBJECTIVE: The patient has continued to be doing poorly. She has continued to be weak, mostly bedbound, complaining of low back pain. Her appetite is very poor and seems to be aspirating given her secretion. We did a repeat CT scan of her chest and CT scan showed that there are increased small right greater than left pleural effusion and adjacent atelectasis or consolidation. No significant change in consolidative opacities in the right apex and small scattered nodular opacities elsewhere. PHYSICAL EXAMINATION: GENERAL: When I examined her this afternoon, she was pale, but no jaundice, cyanosis. No lymphadenopathy, no thyromegaly, no jugular venous distention. No limb edema. VITAL SIGNS: Her heart rate was 106, blood pressure was 106/61, temperature was 98, respiratory rate 20, and oxygen saturation was 93% on 2 liters of oxygen. HEAD, EYES, EARS, NOSE, AND THROAT: Normocephalic, atraumatic. NECK: Supple. HEART: Showed normal first and second heart sounds. No gallop or murmur. CHEST: Shows central trachea, equal bilateral chest expansion, air entry, expansion with crepitation mostly on both sides posteriorly, very few scattered rhonchi. ABDOMEN: Distended, soft, nontender. NEUROLOGIC: She is demented without any obvious lateralizing sign. Her intake over the last 24 hours is 70, output was 800. LABORATORY DATA: As of this morning showed a white cell count of 10,000, hemoglobin 10, hematocrit 30, MCV 87 and platelet count 353,000. Her chemistry showed a serum sodium of 135, potassium 3.7, chloride 98, bicarbonate 30, anion gap of 7, BUN 22, creatinine 1.3. Estimated GFR was 39 mL per minute. Her glucose 169, calcium was 9.1, magnesium was 1.9. Urinalysis was unremarkable. ASSESSMENT: 1. Acute hypoxic respiratory failure, probably multifactorial including: A. Acute on chronic diastolic congestive heart failure. B. Pneumonia, likely aspiration. 2. Tachyarrhythmias consistent with multifocal atrial tachycardia versus atrial fibrillation. She is on Cardizem and she is currently also on Eliquis for stroke prevention and DVT treatment. 3. Hypertension. Actually she is borderline hypertensive. 4. Hyperlipidemia. 5. Type 2 diabetes mellitus. 6. Chronic kidney disease. 7. Dementia. 8. History of deep vein thrombosis, on Eliquis. PLAN: The patient is declining. She is demented. She has probably recurrent aspiration pneumonia and sacral and bilateral heel decubitus ulcer. I recommended hospice; however, the daughter wants bedside video swallowing evaluation. We consulted the speed and language pathologist and we will decide the further management accordingly. She was seen by the precision filer hand today and she recommended Lasix 40 mg; however, given her low blood pressure, I decided to go ahead that we will give her 20 mg of Lasix IV this afternoon. I will repeat her labs again tomorrow. VALENTINA DR: Dia TID: [id number]
[2021-06-15] MEDS: IPRATRPIUM/ALBUTEROL 0.5/2.5MG 3 ML NEBU. NEB SCH ×5 (05:34→20:57)
[2021-06-15 05:59] VITALS: BP 102/65
[2021-06-15 06:22] LABS: CALCIUM 8.6 mg/dL (8.5-10.1); CREATININE 1.2 mg/dL (0.6-1.0); GFR 42.6; POTASSIUM 3.2 mmol/L (3.5-5.1)
[2021-06-15] MEDS ORDERED: POTASSIUM CHLORIDE 20 MEQ TABLET.ER. PO ONE (07:00)
[2021-06-15] MEDS ORDERED: IV DEXTROSE 10% 1,000 ML IV SCH (07:30)
[2021-06-15] MEDS: LATANOPROST 0.005% OPHTH SOLUTION 2.5ML BOTTLE. OU SCH ×2 (08:08→17:36)
[2021-06-15] MEDS: APIXABAN 5 MG TABLET. PO SCH ×2 (08:09→20:47)
[2021-06-15] MEDS: DORZOLAMIDE/TIMOLOL 2%/0.5% OPHTH SOLUTION 10ML BOTTLE. OD SCH (08:09)
[2021-06-15] MEDS: LACTOBACILLUS RHAMNOSUS GG 1 CAPSULE. PO SCH ×2 (08:09→20:47)
[2021-06-15] MEDS: METOPROLOL TART IMMED RELEASE 25 MG TABLET. PO SCH ×2 (08:12→20:48)
[2021-06-15] MEDS: LIDOCAINE (700MG/PATCH) PATCH. TD SCH (08:13)
--- NOTE | 2021-06-15 08:14 | PDOC ---
CARDIO Progress Notes Date & Time Date of Service DATE: 06/15/21 TIME: 08:13 Time of Evaluation 08:13 Subjective Notes Feels like "s.h.i.t" this morning. Wheezy, mild SOA No chest pain, palpitations Vitals Vitals Vital Signs Date Time Temp Pulse Resp B/P (MAP) Pulse Ox O2 Delivery O2 Flow Rate FiO2 06/15/21 05:59 98.1 64 18 102/65 (77) 96 Nasal Cannula 2.0 Weight Weight [ ] Input and Output I.O. Intake and Output 06/15/21 07:00 Intake Total 680 ml Output Total 1350 ml Balance -670 ml Intake Oral 680 ml Output Urine Total 1350 ml Laboratory Labs Laboratory Tests Test 06/13/21 11:28 06/13/21 16:25 06/13/21 20:31 06/14/21 06:40 Glucose (Fingerstick) 289 mg/dL (70-99) 246 mg/dL (70-99) 258 mg/dL (70-99) White Blood Count 10.2 x10^3/uL (4.0-11.0) Red Blood Count 3.44 x10^6/uL (3.50-5.40) Hemoglobin 9.7 g/dL (12.0-15.5) Hematocrit 29.8 % (36.0-47.0) Mean Corpuscular Volume 87 fL (79-100) Mean Corpuscular Hemoglobin 28 pg (25-35) Mean Corpuscular Hemoglobin Concent 33 g/dL (31-37) Red Cell Distribution Width 16.8 % (11.5-14.5) Platelet Count 353 x10^3/uL (140-400) Neutrophils (%) (Auto) 68 % (31-73) Lymphocytes (%) (Auto) 16 % (24-48) Monocytes (%) (Auto) 10 % (0-9) Eosinophils (%) (Auto) 6 % (0-3) Basophils (%) (Auto) 1 % (0-3) Neutrophils # (Auto) 6.9 x10^3uL (1.8-7.7) Lymphocytes # (Auto) 1.6 x10^3/uL (1.0-4.8) Monocytes # (Auto) 1.1 x10^3/uL (0.0-1.1) Eosinophils # (Auto) 0.6 x10^3/uL (0.0-0.7) Basophils # (Auto) 0.0 x10^3/uL (0.0-0.2) Sodium Level 135 mmol/L (136-145) Potassium Level 3.7 mmol/L (3.5-5.1) Chloride Level 98 mmol/L (98-107) Carbon Dioxide Level 30 mmol/L (21-32) Anion Gap 7 (6-14) Blood Urea Nitrogen 22 mg/dL (7-20) Creatinine 1.3 mg/dL (0.6-1.0) Estimated GFR (Cockcroft-Gault) 38.8 Glucose Level 169 mg/dL (70-99) Calcium Level 9.1 mg/dL (8.5-10.1) Magnesium Level 1.9 mg/dL (1.8-2.4) Test 06/14/21 07:43 06/14/21 21:19 06/15/21 05:58 06/15/21 07:27 Glucose (Fingerstick) 163 mg/dL (70-99) 236 mg/dL (70-99) 48 mg/dL (70-99) Sodium Level 137 mmol/L (136-145) Potassium Level 3.2 mmol/L (3.5-5.1) Chloride Level 100 mmol/L (98-107) Carbon Dioxide Level 31 mmol/L (21-32) Anion Gap 6 (6-14) Blood Urea Nitrogen 21 mg/dL (7-20) Creatinine 1.2 mg/dL (0.6-1.0) Estimated GFR (Cockcroft-Gault) 42.6 Glucose Level 57 mg/dL (70-99) Calcium Level 8.6 mg/dL (8.5-10.1) Test 06/15/21 07:58 Glucose (Fingerstick) 53 mg/dL (70-99) Microbiology Micro Microbiology 06/13/21 Blood Culture - Preliminary, Resulted NO GROWTH AFTER 1 DAY... Physical Exams HEENT: Neck Supple W Full Motion Chest: Symmetric Lungs: Other (diffuse expiratory wheezes ) Heart: RRR (heart tones regular. not on tele) Abdomen: Soft N/T Extremities: No Edema Neurology: alert, follow commands, other (confused ) Assessment Assessment 1. Acute respiratory failure with CHF, probable PNA, and AE COPD 2. Tachyarrhythmia; EKG shows MAT. Follows with [facility] Dr. Siri Navarro. Recent event monitor with PAT. MARCELLA Off tele, HR controlled per VS review overnight 3. Acute on chronic diastolic CHF; Recent echo with preserved LV systolic function. s/p IV diuresis 4. Hypertension; low end. Cardizem and metoprolol decreased 5. Hyperlipidmia; statin 6. Diabetes, II 7. CKD; Cr stable at 1.3. 8. Dementia 9. H/o DVT on Eliquis therapy Recommendations Cardizem, metoprolol for rate control Ongoing antibiotic therapy ST eval pending Supportive care Long-term prognosis poor Consider Solumedrol with persistent wheezing. As per EVONNE BROWN APRN Jun 15, 2021 08:14
[2021-06-15 10:47] VITALS: BP 102/56
--- NOTE | 2021-06-15 14:19 | RAD ---
Video swallow 06/07/2021 Clinical History: Cough, shortness of breath, crackles on physical examination. Clinical concern for aspiration. Technique: A video swallow study was performed by the survey technologist in conjunction with the department of speech pathology. The patient was given a series of swallowing trials using varying co nsistencies of barium under fluoroscopic control. The total fluoroscopic time for this study was 1.8 minutes. A single fluoroscopically captured lateral radiograph of the neck was obtained. Findings: The patient demonstrates intermittent silent aspiration with thin liquids. The patient tole rated the thicker consistencies of barium well without evidence of aspiration. Impression: Intermittent silent aspiration with thin liquids. Electronically signed by: New Knight MD (06/15/2021 2:17 PM) [id number]
[2021-06-15] MEDS: levoFLOXacin 750 MG TABLET PO SCH (14:33)
[2021-06-15 15:39] VITALS: BP 121/61
--- NOTE | 2021-06-15 15:53 | DISCH ---
DISCHARGE ORDERS DISCHARGE DATE: Jun 15, 2021 FINAL DIAGNOSIS acute on chronic diastolic chf aspiration pneumonia CONDITION AT DISCHARGE: Stable Code Status: Full SNF STAY <30 DAYS: Yes POST DISCHARGE ORDERS: ACTIVITY ORDERS: Activity as tolerated WEIGHT BEARING STATUS: As tolerated DIET AFTER DISCHARGE: ADA CHECKS AFTER DISCHARGE: CHECKS AFTER DISCHARGE: Check blood press - daily TREATMENT/EQUIPMENT ORDERS: ADAPTIVE EQUIPMENT NEEDED: None DISCHARGE MEDICATIONS: Home Meds Reported Medications Atorvastatin Calcium (ATORVASTATIN CALCIUM) 10 Mg Tablet, 10 MG PO QHS for FOR CHOLESTEROL, #30 TAB 0 Refills 06/08/21 Lorazepam (ATIVAN) 1 Mg Tablet, 1 TAB PO DAILY for anxiety MDD 3 Tablet(s) for 30 Days, #30 TAB 0 Refills 06/08/21 Docusate Sodium (COLACE) 100 Mg Capsule, 1 CAP PO BID for BOWEL MOVEMENTS for 30 Days, #60 CAP 0 Refills 06/08/21 Hydrocodone Bit/Acetaminophen (HYDROCODONE-APAP 5-325 ) 1 Each Tablet, 1 TAB PO PRN Q6HRS PRN for PAIN, TAB 0 Refills 06/08/21 Insulin Glargine,Hum.rec.anlog (LANTUS SOLOSTAR) 100 Unit/1 Ml Insuln.pen, 30 UNIT SQ QHS for DM II, #15 ML 3 Refills 06/08/21 Montelukast Sodium (MONTELUKAST SODIUM TABLET ) 10 Mg Tablet, 10 MG PO HS for FOR ASTHMA, TAB 0 Refills 06/08/21 Apixaban (ELIQUIS) 5 Mg Tablet, 5 MG PO BID for DVT, TAB 04/25/21 Albuterol Sulfate (ALBUTEROL SULFATE NEB SOLN) 1.25 Mg/3 Ml Vial.neb, 1 VIAL NEB Q6HRS for ., #150 ML 04/06/21 Albuterol Sulfate (PROAIR HFA INHALER) 8.5 Gm Hfa.aer.ad, 2 PUFF IH PRN Q4-6HRS PRN for wheezing for 21 Days, #1 INHALER 0 Refills 04/06/21 Dorzolamide Hcl/Timolol Maleat (DORZOLAMIDE-TIMOLOL EYE DROPS) 10 Ml Drops, 1 DROP OD DAILY07 for ., #10 ML 0 Refills 04/06/21 Latanoprost (XALATAN) 2.5 Ml Drops, 1 DROP OU BID76 for GLAUCOMA, DROP 04/06/21 Triamterene/Hydrochlorothiazid (TRIAMTERENE-HCTZ 37.5-25 MG TB) 1 Each Tablet, 1 TAB PO DAILY for ., #30 TAB 5 Refills 04/06/21 Losartan Potassium (LOSARTAN POTASSIUM ) 25 Mg Tablet, 7.5 MG PO DAILY for HYPERTENSION, TAB 04/06/21 Diltiazem Hcl (CARTIA XT) 180 Mg Cap.er.24h, 180 MG PO DAILY08 for ., CAP.SR 04/06/21 Discontinued Reported Medications Pravastatin Sodium (PRAVASTATIN SODIUM) 40 Mg Tablet, 1 TAB PO QHS for ., #90 TAB 3 Refills 04/06/21 PAOLA PAIZ MD Jun 15, 2021 15:53
--- NOTE | 2021-06-15 16:45 | NUR ---
Wound/Ostomy Care Wound Type/Assessment: Patient seen per wound care consult. See wound assessment. Patient has DFU/cellulitis wound to the right lateral ankle. It appears reddened with scabbed area and scant drainage. Patient states it is sensitive to the touch. Wound cleansed, assessed, and measured. Wound is minimal and will most likely heal easily. Treatment Recommendations/Plan: Recommendations for xeroform gauze and foam dressing. change on Monday and Monday. Dressing applied and no other wounds noted upon head to toe assessment. Coccyx and buttocks is peeling and red with what appears to incontinence associated dermatitis but there are no open areas. Calazime to be applied BID and as needed. Education provided: Patient is confused at times, but educated on wound care dressing and PU prevention. Offloading surface/device: Patient encouraged to turn while in bed. Patient in chair during time of assessment. Recommended Referrals/Tests: N/A Discharge Recommendations for dressings: Dressing change instructions left in room. Patient assisted back to chair using walker and assistance, call light in reach. Wound care will follow up on 06/22/21.
[2021-06-15] MEDS ORDERED: ALBUTEROL SULFATE 2.5 MG/3 ML NEBU. NEB SCH (18:00)
[2021-06-15 19:12] VITALS: BP 106/58
[2021-06-15] MEDS ORDERED: ALBUTEROL SULFATE 2.5 MG/3 ML NEBU. NEB PRN (20:00)
[2021-06-15] MEDS: oxyCODONE IR 5 MG TABLET PO PRN (20:47)
[2021-06-15] MEDS: LORazepam 1 MG TABLET PO PRN (20:47)
[2021-06-15] MEDS: ATORVASTATIN CALCIUM 10 MG TABLET. PO SCH (20:47)
[2021-06-15] MEDS: traZODone 50 MG TABLET. PO SCH (20:47)
[2021-06-15] MEDS: MONTELUKAST 10 MG TABLET. PO SCH (20:47)
[2021-06-15] MEDS: PATCH REMOVAL. MC SCH (20:49)
[2021-06-16] MEDS: levoFLOXacin 750 MG TABLET PO SCH (05:51)
[2021-06-16] MEDS: IPRATRPIUM/ALBUTEROL 0.5/2.5MG 3 ML NEBU. NEB SCH ×2 (06:01→09:06)
[2021-06-16 06:37] VITALS: BP 114/63
[2021-06-16] MEDS: LATANOPROST 0.005% OPHTH SOLUTION 2.5ML BOTTLE. OU SCH (08:35)
[2021-06-16] MEDS: DORZOLAMIDE/TIMOLOL 2%/0.5% OPHTH SOLUTION 10ML BOTTLE. OD SCH (08:35)
[2021-06-16 08:36] VITALS: BP 114/63
[2021-06-16] MEDS: APIXABAN 5 MG TABLET. PO SCH (08:36)
[2021-06-16] MEDS: LACTOBACILLUS RHAMNOSUS GG 1 CAPSULE. PO SCH (08:36)
[2021-06-16] MEDS: METOPROLOL TART IMMED RELEASE 25 MG TABLET. PO SCH (08:36)
--- NOTE | 2021-06-16 08:41 | PN ---
DATE: 06/15/2021 SUBJECTIVE: The patient is sitting in the chair with recurrent episodes of cough. She is wheezing. Apparently, she has had a video swallowing evaluation done, which showed that patient has moderate oropharyngeal dysphagia with inconsistent trace aspiration of thin liquids. Aspiration occurred before swallow due to pharyngeal delay. Delay in pharyngeal swallow is likely related to patient's shortness of air. Mastication of soft solid was prolonged, inefficient and would foreseeably increase overall risk of aspiration over the course of a meal, with modified diet to reduce the mastication requirement and provide nectar-thickened liquids via straw. ____ for diet advancement in near future. However, when respiratory status improves, we would consider repeat video swallow to determine safety of advancing diet consistently and she is now on dysphagia 2 with nectar thickened liquid. PHYSICAL EXAMINATION: GENERAL: When I examined her, she was pale, but not jaundiced or cyanosed. No lymphadenopathy, no thyromegaly, no jugular venous distention. No lower limb edema. VITAL SIGNS: Her heart rate was 83, blood pressure was 102/56, temperature was 98.6, respiratory rate was 18 and oxygen saturation was 96% on 2 liters of oxygen. HEAD, EYES, EARS, NOSE, AND THROAT: Normocephalic, atraumatic. NECK: Supple. HEART: Normal first and second sounds. No gallop or murmur. CHEST: Shows central trachea, equally reduced expansion, air entry, vesicular breath sounds with bilateral scattered rhonchi and bilateral basal crepitation posteriorly. ABDOMEN: Distended, soft, nontender. NEUROLOGIC: She is demented, but without any obvious lateralizing sign. All her cranial nerves intact. She moves extremities without difficulty. She is ambulating short distances with a walker. Her intake is 660, output was 1370. LABORATORY DATA: As of this morning, her white cell count was 10,200, hemoglobin 9.7, hematocrit 29.8, MCV 87 and platelet count of 353,000 with normal manual differential. Her chemistry showed her serum sodium was 137, potassium 3.2, chloride 100, bicarbonate 31, anion gap of 6, BUN 21, creatinine 1.2. Estimated GFR was 42 mL per minute. Her glucose was ____ and calcium was 8.6. ASSESSMENT: 1. Acute hypoxic respiratory failure, probably multifactorial including: A. Acute on chronic diastolic congestive heart failure. B. Pneumonia, likely aspiration. 2. Tachyarrhythmias consistent with multifocal atrial tachycardia versus atrial fibrillation. She is on Cardizem. She is currently also on Eliquis for stroke prevention and deep vein thrombosis treatment. 3. Hypertension. She is actually borderline hypotensive. 4. Hyperlipidemia. 5. Type 2 diabetes mellitus. 6. Chronic kidney disease. 7. Dementia. 8. History of deep vein thrombosis, on Eliquis. 9. Recurrent aspiration pneumonia with the video swallowing evaluation showing that she has tendency to aspirate and that she is now on dysphagia 2 diet with nectar thickened liquid. PLAN: I did recommend hospice; however, the family continued to want aggressive treatment, and therefore, the patient will be discharged to [facility] if she is accepted there today. JOSUÉ/PANCHO/GISSELL DR: Dia TID: [id number]
[2021-06-16] MEDS: LIDOCAINE (700MG/PATCH) PATCH. TD SCH (08:42)
--- NOTE | 2021-06-16 09:24 | NUR ---
PATIENT IS DISCHARGED TO [facility], REPORT GIVEN TO STAFF NURSE PANCHITO. PATIENT LEFT ROOM VIA W/C ACCOMP BY TAISHA. PATIENT IS TAKEN TO [facility] BY TRANSPORTATION PROVIDED BY FACILITY.
--- NOTE | 2021-06-29 17:13 | DS ---
DATE OF DISCHARGE: 06/16/2021 HOSPITAL COURSE: The patient is an 86-year-old female patient who was brought to the Emergency Room of [facility] with increased back pain. She was evaluated in the Emergency Room extensively and her CT scan showed that she has bilateral infiltrate consistent with healthcare-associated pneumonia. She was treated with IV antibiotic in the form of Levaquin, SHE IS ALLERGIC TO PENICILLIN. She had a prolonged stay as she has multiple episodes of hypoglycemia and also has multiple episodes of aspiration. She has been also sundowning and we have had multiple discussions with her family regarding hospice and comfort care, but the family insisted on pursuing aggressive treatment and once her blood sugar stabilized, decision was made to discharge her back to [facility]. She was in fact seen by the speech therapist and she was started on dysphagia 2 with nectar thickened liquids. She was also seen by the wound care team and the patient treated according to their instruction. PHYSICAL EXAMINATION: GENERAL: On day of discharge, the patient looked well and was clearly in no apparent respiratory distress. She was pale, but no jaundice, cyanosis or thyromegaly. No jugular venous distention. No limb edema. VITAL SIGNS: Her heart rate was 83, blood pressure was 102/56, temperature was 98.6, respiratory rate was 18 and oxygen saturation was 96% on 2 liters of oxygen. HEAD, EYES, EARS, NOSE, AND THROAT: Showed normocephalic, atraumatic. NECK: Supple. HEART: Showed normal first and second heart sounds, no gallop, rub or murmur. CHEST: Shows central trachea, equally reduced expansion, reduced air entry, vesicular breath sounds with bilateral scattered rhonchi and bilateral basal crepitation posteriorly. ABDOMEN: Distended, soft, nontender. NEUROLOGIC: She is profoundly demented, but without any obvious lateralizing sign. All her cranial nerves are intact. She moves her extremities without difficulty. She ambulates for short distances with a walker. LABORATORY DATA: Her lab work on the day of discharge showed her white cell count was 10,000, hemoglobin 10, hematocrit 30, MCV 87 and platelet count of 353,000. Her chemistry showed a serum sodium 137, potassium 3.2, chloride 100, bicarbonate 31, anion gap of 6, BUN 21, creatinine 1.2. Estimated GFR was 42 mL per minute. Her glucose was 157, calcium was 8.6. Her coronavirus by PCR was negative. DISCHARGE MEDICATIONS: She was discharged back to [facility] to continue on the following medications: Albuterol sulfate 2 puffs every 4-6 hours, albuterol sulfate by nebulizer every 6 hours, apixaban 5 mg twice a day, atorvastatin calcium 10 mg at bedtime, diltiazem extended release 180 mg daily, Colace 100 mg twice a day, dorzolamide/timolol 1 drop to both eyes daily, hydrocodone/APAP 5/325 one tablet every 6 hours as needed. She is on Lantus insulin 30 units subcutaneously at bedtime, latanoprost 1 drop to both eyes twice a day, lorazepam 1 mg p.o. daily for anxiety, losartan potassium 25 mg p.o. daily, Singulair 10 mg once a day, triamterene/hydrochlorothiazide 37.5/25 one tablet once a day. FINAL DISCHARGE DIAGNOSES: 1. Acute hypoxic respiratory failure, multifactorial including: A. Acute on chronic diastolic congestive heart failure. B. Pneumonia, likely aspiration. 2. Tachyarrhythmias consistent with multifocal atrial tachycardia versus atrial fibrillation. She is on Cardizem. She is currently also on Eliquis for stroke prevention and deep vein thrombosis treatment. 3. Hypertension. 4. Hyperlipidemia. 5. Type 2 diabetes mellitus. 6. Chronic kidney disease. 7. Dementia. 8. History of deep vein thrombosis of her right lower extremity. 9. Recurrent aspiration pneumonia for which video swallowing evaluation showed that she has tendency to aspirate and that she is now on dysphagia 2 diet with nectar thickened liquid. NAIDA/LIVE DR: Dia TID: [id number]
== END 2021-06-16 09:25 | DRG 177 ==
LOC: ER 20:54 → 1 SOUTH 06-07 00:36
PROVIDERS: ADMIT Hospitalist; ATTEND Hospitalist
DX: J69.0 Pneumonitis due to inhalation of food and vomit (principal); I50.33 Acute on chronic diastolic (congestive) heart failure; J96.01 Acute respiratory failure with hypoxia; I13.0 Hypertensive heart and chronic kidney disease with heart failure and stage 1 through stage 4 chronic kidney disease, or unspecified chronic kidney disease; J44.0 Chronic obstructive pulmonary disease with (acute) lower respiratory infection; J98.11 Atelectasis; E11.22 Type 2 diabetes mellitus with diabetic chronic kidney disease; E11.649 Type 2 diabetes mellitus with hypoglycemia without coma; E78.5 Hyperlipidemia, unspecified; F03.90 Unspecified dementia, unspecified severity, without behavioral disturbance, psychotic disturbance, mood disturbance, and anxiety; I25.10 Atherosclerotic heart disease of native coronary artery without angina pectoris; I48.0 Paroxysmal atrial fibrillation; I70.0 Atherosclerosis of aorta; L89.159 Pressure ulcer of sacral region, unspecified stage; L89.619 Pressure ulcer of right heel, unspecified stage; L89.629 Pressure ulcer of left heel, unspecified stage; L89.91 Pressure ulcer of unspecified site, stage 1; N18.30 Chronic kidney disease, stage 3 unspecified; W06.XXXA Fall from bed, initial encounter; I95.9 Hypotension, unspecified; M19.90 Unspecified osteoarthritis, unspecified site; Z79.01 Long term (current) use of anticoagulants; Z86.718 Personal history of other venous thrombosis and embolism; Z90.710 Acquired absence of both cervix and uterus; Y93.89 Activity, other specified; Y92.89 Other specified places as the place of occurrence of the external cause; Y99.8 Other external cause status; Z88.0 Allergy status to penicillin; Z88.8 Allergy status to other drugs, medicaments and biological substances
CPT/HCPCS: 36415; 71045; 71250; 71275; 72193; 74230; 80048; 80053; 81001; 82947; 83735; 83880; 84145; 85025; 85027; 87040; 87426; 93005; 94640; 94760; 96374; J1815; J1940; J1956; J2250; J2270; Q0163; Q9967; U0003; 92610; 92611; 97110; 97530; 97535; 99285-25; J7613

== ENCOUNTER 2021-06-25 09:08 | Emergency (ER) | payer MEDICARE ==
[~2021-06-25] VITALS: Ht 161.3 cm; Wt 68.3 kg
[~2021-06-25 09:08] MED LIST changes: +ATOR10TA60 PO; +DOCU-109 PO; +HYDR-2155 PO; +INSU100I13 SQ; +LORA-254 PO; +MONT10TA80 PO
--- NOTE | 2021-06-25 10:18 | RAD ---
Site ID: [id number] EXAMINATION: CT HEAD/BRAIN WO. TECHNIQUE: Noncontrast axial images of the brain were obtained with coronal and sagittal reconstructi ons. One or more of the following radiation dose reduction techniques was used: automated exposure control , adjustment of mA and/or KV according to patient size, and/or utilization of iterative reconstructio n technique. HISTORY: 86 years Female with altered mental status Comparison exam: April 28, 2021 FINDINGS: There is no intracranial hemorrhage, edema or mass effect. The brain parenchyma demonstrat es periventricular and deep white matter hypodensities compatible with chronic microvascular ischemic changes. Size of the ventricles is appropriate. Mucosal thickening gas similar to the previous exam is seen in the maxillary sinuses. Other paranasal sinuses are from clear. IMPRESSION: No acute process. Electronically signed by: Charan Garcia MD (06/25/2021 10:16 AM) [id number]
[2021-06-25 10:20] LABS: BENZODIAZEPINES NEG (NEG); CANNABINOIDS NEG (NEG); METHADONE NEG (NEG); OPIATES NEG (NEG); PHENCYCLIDINE NEG (NEG)
--- NOTE | 2021-06-25 10:24 | RAD ---
EXAM: Chest, single view. HISTORY: Altered mental status. COMPARISON: 06/14/2021 FINDINGS: A frontal view of the chest is obtained. There is a new moderate left pleural effusion. The re has been interval increase in diffuse lower lobe predominant interstitial infiltrate. There is sta ble cardiomegaly. There is no pneumothorax. There is a suspected trace right pleural effusion. IMPRESSION: 1. Moderate left and trace right pleural effusion. 2. Diffuse lower lobe predominant interstitial infiltrate, increased compared to the prior study. Electronically signed by: Carol Laughlin MD (06/25/2021 10:21 AM) [id number]
[2021-06-25 10:33] LABS: AMORPHOUS SEDIMENT,UR PRESENT /HPF; BACTERIA,URINE 0 /HPF (0-FEW); BILIRUBIN,URINE NEG (NEG); CLARITY,URINE CLEAR; COLOR,URINE YELLOW; GLUCOSE,URINE NEG (NEG); HYALINE CASTS, URINE OCC /HPF; NITRITE,URINE NEG (NEG); RBC,URINE 0 /HPF (0-2); SQUAMOUS EPITHELIAL CELL,UR OCC /LPF; UROBILINOGEN,URINE 0.2 mg/dL (0.2 mg/dL); WBC,URINE OCC /HPF (0-4)
[2021-06-25 10:36] LABS: CALCIUM 8.7 mg/dL (8.5-10.1); CREATININE 1.1 mg/dL (0.6-1.0); GFR 47.1; POTASSIUM 3.9 mmol/L (3.5-5.1)
[2021-06-25 10:37] LABS: AMPHETAMINE/METHAMPHETAMINE NEG (NEG); BARBITURATES NEG (NEG); COCAINE NEG (NEG)
[2021-06-25 10:40] LABS: ACETAMIN < 2 mcg/mL (10-30); SALIC < 2.8 mg/dL (2.8-20.0)
--- NOTE | 2021-06-25 10:43 | PHYS DOC ---
Past History Past Medical History: Arthritis Past Surgical History: Other Additional Past Surgical Histo: R HIP FX REPAIR Alcohol Use: None General Adult EDM: Chief Complaint: ALTERED MENTAL STATUS HPI: HPI: 86 yo F PMH dementia, diabetes, right ankle pressure ulcer, asthma/COPD, paroxysmal A. fib (on eliquis) and CKD, presents the ED brought in by EMS from [facility] and rehab with concern for worsening mental status. Per half-way patient is less talkative. Patient is normally alert but is disoriented due to her dementia. Patient was recently admitted for ORIF for a hip fracture, complicated with pneumonia. Pt was just started on Zyprexa. Patient resting comfortably in room and complains of right ankle pain. Review of Systems: Review of Systems: ROS unobtainable due to dementia Allergies: Allergies: Allergies Coded Allergies Type Severity Reaction Last Updated Verified ibuprofen Allergy Severe Anaphylaxis 04/28/21 Yes Penicillins Allergy Intermediate 04/29/21 Yes Physical Exam: PE: Constitutional: Sleeping comfortably, no acute distress, non-toxic appearance. HENT: Normocephalic, atraumatic, dry mucous membranes Eyes: EOMI, conjunctiva normal, no discharge. Neck: Normal range of motion, supple, Cardiovascular: S1/2 present, irregular rhythm Lungs & Thorax: Speaking in full sentences, bilateral equal chest rise, no tachypnea or increased work of breathing Abdomen: soft, no tenderness, Skin: Warm, dry, no erythema, no rash. [] Extremities: no cyanosis, right lateral ankle with painful 2cm ulcer-no associated erythema or crepitus (dressing changed 06/23) Neurologic: Alert, moves all 4 extremities, no focal deficits noted, clear speech-disorganized speech Psychologic: Affect normal, calm mood Current Patient Data: Vital Signs: Vital Signs Date Time Temp Pulse Resp B/P (MAP) Pulse Ox O2 Delivery O2 Flow Rate FiO2 06/25/21 09:34 98.6 117 16 109/53 (71) 98 Nasal Cannula 3.0 EKG: EKG: Irregular irregular/A. fib at 1 3 bpm, no axis deviation, no ST elevation or ST depression Radiology/Procedures: Radiology/Procedures: IMAGING REPORT Signed PATIENT: EDISON ZHU AACCOUNT: [id number] : 1935 LOCATION: ER AGE: 86 SEX: F EXAM STATUS: REG ER ORD. PHYSICIAN: MADISON SHEA DO REASON: ALTERED MENTAL STATUS PROCEDURE: CT HEAD WO CONTRAST Site ID: [id number] EXAMINATION: CT HEAD/BRAIN WO. TECHNIQUE: Noncontrast axial images of the brain were obtained with coronal and sagittal reconstructions. One or more of the following radiation dose reduction techniques was used: automated exposure control, adjustment of mA and/or KV according to patient size, and/or utilization of iterative reconstruction technique. HISTORY: 86 years Female with altered mental status Comparison exam: April 28, 2021 FINDINGS: There is no intracranial hemorrhage, edema or mass effect. The brain parenchyma demonstrates periventricular and deep white matter hypodensities compatible with chronic microvascular ischemic changes. Size of the ventricles is appropriate. Mucosal thickening gas similar to the previous exam is seen in the maxillary sinuses. Other paranasal sinuses are from clear. IMPRESSION: No acute process. Electronically signed by: Alka Garcia MD (06/25/2021 10:16 AM) [id number] DICTATED AND SIGNED BY: ALKA GARCIA MD DATE: 06/25/21 1014 CC: LITA PIMENTEL MD; MADISON SHEA DO ~MTH0 0 IMAGING REPORT Signed PATIENT: EDISON ZHU AACCOUNT: [id number] : 1935 LOCATION: ER AGE: 86 SEX: F EXAM STATUS: REG ER ORD. PHYSICIAN: MADISON SHEA DO REASON: ALTERED MENTAL STATUS PROCEDURE: PORTABLE CHEST 1V EXAM: Chest, single view. HISTORY: Altered mental status. COMPARISON: 06/14/2021 FINDINGS: A frontal view of the chest is obtained. There is a new moderate left pleural effusion. There has been interval increase in diffuse lower lobe predominant interstitial infiltrate. There is stable cardiomegaly. There is no pneumothorax. There is a suspected trace right pleural effusion. IMPRESSION: 1. Moderate left and trace right pleural effusion. 2. Diffuse lower lobe predominant interstitial infiltrate, increased compared to the prior study. Electronically signed by: Carol Hummel MD (06/25/2021 10:21 AM) [id number] DICTATED AND SIGNED BY: CAROL HUMMEL MD DATE: 06/25/21 1020 CC: LITA PIMENTEL MD; MADISON SHEA DO ~MTH0 0 Heart Score: C/O Chest Pain: N/A Risk Factors: Risk Factors: DM, Current or recent (<one month) smoker, HTN, HLP, family history of CAD, obesity. Risk Scores: Score 0 - 3: 2.5% MACE over next 6 weeks - Discharge Home Score 4 - 6: 20.3% MACE over next 6 weeks - Admit for Clinical Observation Score 7 - 10: 72.7% MACE over next 6 weeks - Early Invasive Strategies Course & Med Decision Making: Course & Med Decision Making Pertinent Labs and Imaging studies reviewed. (See chart for details) Concern for bilateral pleural effusions with infiltrate, parapneumonic effusion also no hypoxia reported nasal cannula. Patient at her baseline mental status upon ED arrival. Patient does not meet sepsis criteria. I spoke to Dr. Lugo- patient was not speaking and unresponsive at the half-way, has history of hypoglycemia. Patient started on broad-spectrum antibiotics. Patient's daughter and son at bedside-daughter request patient be transferred to [facility]. Patient accepted by Dr. Lugo. Covid test and blood gas pending. I have spoken with the patient and/or caregivers. I have explained the patient's condition, diagnosis and treatment plan based on the information available to me at this time. I have answered the patient's and/or caregivers questions and answered any concerns. The patient and/or caregivers have as good an understanding of the patient's diagnosis, condition and treatment plan as can be expected at this point. The patient has been stabilized within the capability of the emergency department. The patient will be transported for further care and management or will be moved to an observation or inpatient service. I have communicated with the staff or medical practitioner taking over this patient's care. Dragon Disclaimer: Dragon Disclaimer: This electronic medical record was generated, in whole or in part, using a voice recognition dictation system. Departure Departure: Impression: Primary Impression: Hypoxemia requiring supplemental oxygen Additional Impression: Parapneumonic effusion Disposition: 02 [facility] (to [facility], accepted by Dr. Lugo) Condition: GUARDED Referrals: LITA PIMENTEL MD (PCP) MADISON SHEA DO Jun 25, 2021 10:43
[2021-06-25 10:50] LABS: ALBUMIN 2.4 g/dL (3.4-5.0); DIRECT BILIRUBIN 0.1 mg/dL (0.0-0.2); TOTAL BILIRUBIN 0.2 mg/dL (0.2-1.0); TOTAL PROTEIN 6.8 g/dL (6.4-8.2)
[2021-06-25 11:11] LABS: BASO # 0.1 x10^3/uL (0.0-0.2); BASO % 1 % (0-3); EOS # 0.5 x10^3/uL (0.0-0.7); EOS % 5 % (0-3); HEMATOCRIT 27.7 % (36.0-47.0); HEMOGLOBIN 8.8 g/dL (12.0-15.5); LYMPH # 2.2 x10^3/uL (1.0-4.8); LYMPH % 24 % (24-48); MEAN CORPUSCULAR HEMOGLOBIN 27 pg (25-35); MEAN CORPUSCULAR HGB CONC 32 g/dL (31-37); MEAN CORPUSCULAR VOLUME 86 fL (79-100); MONO # 1.3 x10^3/uL (0.0-1.1); MONO % 14 % (0-9); NEUT # 5.2 x10^3uL (1.8-7.7); NEUT % 57 % (31-73); PLATELET COUNT 236 x10^3/uL (140-400); RED CELL DISTRIBUTION WIDTH 17.6 % (11.5-14.5); WHITE BLOOD COUNT 9.2 x10^3/uL (4.0-11.0)
[2021-06-25] MEDS ORDERED: AZTREONAM 2 GM in IV NORMAL SALINE 100ML 100 ML IV SCH (11:30)
[2021-06-25 11:53] LABS: BGAS PH 7.37 (7.35-7.45)
--- NOTE | 2021-06-25 12:02 | EKG ---
[address] [address] Test Date: 2021-06-25 Test Time: 10:25:51 Pat Name: EDISON ZHU Department: Room: Gender: F Tire Maker: NILA : 1935 Requested By: MADISON SHEA Order Number: [id number] Reading MD: Attila Kinney Measurements Intervals [place] Rate: 120 P: NM: QRS: 24 QRSD: 86 T: -52 QT: 338 QTc: 483 Interpretive Statements ATRIAL FIBRILLATION LOW VOLTAGE T ABNORMALITY IN INFERIOR LEADS ABNORMAL ECG Electronically Signed On 06-27-2021 16:50:48 CDT by Attila Kinney
[2021-06-25 13:17] VITALS: BP 111/79
== END 2021-06-25 14:20 | disposition short-term general hospital (02) ==
LOC: ER 09:08
DX: R09.02 Hypoxemia (principal); J90 Pleural effusion, not elsewhere classified; M25.571 Pain in right ankle and joints of right foot; M19.90 Unspecified osteoarthritis, unspecified site; F03.90 Unspecified dementia, unspecified severity, without behavioral disturbance, psychotic disturbance, mood disturbance, and anxiety; J44.9 Chronic obstructive pulmonary disease, unspecified; I48.91 Unspecified atrial fibrillation; E11.22 Type 2 diabetes mellitus with diabetic chronic kidney disease; N18.9 Chronic kidney disease, unspecified; Z20.822 Contact with and (suspected) exposure to COVID-19; Z88.6 Allergy status to analgesic agent; Z88.0 Allergy status to penicillin
CPT/HCPCS: 36415; 70450; 71045; 80048; 80076; 80307; 80329; 81001; 82550; 82803; 83605; 83690; 83735; 83880; 84484; 85025; 87040; 87426; 93005; 96365; 99285; C9803; J3490; U0003; G0480